=== PATIENT | female | born 1940 | race Caucasian/White ===

== ENCOUNTER 2020-09-12 07:09 | Day surgery (SDC) | payer OTHER, MEDICARE ==
[2020-09-06 16:54] LABS: Absolute Lymphocytes (CBC) 1.9 K/uL (0.7-4.9); Basophils % 1.2 % (0-1.3); Hematocrit 43.6 % (36.0-45.0); Lymphocytes % 21.1 % (15.3-44.8); MPV 8.2 fL (7.6-11.3); RBC Red Blood Cell Count 4.66 M/uL (3.86-4.86)
[2020-09-06 16:55] LABS: Urine Appearance CLOUDY; Urine Bilirubin NEGATIVE (NEG); Urine Blood 2+ (NEG); Urine Color YELLOW; Urine Glucose NEGATIVE (NEG); Urine Protein NEGATIVE (NEG); Urine Urobilinogen 0.2 mg/dL (0.2-1.0); Urine pH 6.5 (5.0-7.0)
[2020-09-06 17:01] LABS: Urine Microscopic Reflex ORDER UMIC
[2020-09-06 17:08] LABS: Potassium 3.8 mmol/L (3.5-5.1)
[2020-09-06 17:17] LABS: Urine Bacteria <20 /HPF (<20); Urine RBC <5 /HPF (NONE SEEN)
--- OUTSIDE RECORDS SUMMARY | 2020-09-12 07:11 | XMS REPORT | Clinical Summary ---
:1940 Author Organization [facility] Address [address] [place] [address] Care Team Providers Name Role Phone Zelda Butler MD Primary Care Provider [phone] Allergies Active Allergy Reactions Severity Noted Date Comments Other 03/04/2017 Joint pain with unknown cholesterol med. Denies other a llergies. Medications Medication Sig Dispensed Refills Start Date End Date Status telmisartan-hydrochlor Take 1 tablet by 0 Active othiazid (MICARDIS mouth daily. HCT) 80-12.5 mg per tablet lactulose 10 gram/15 Take 30 g by mouth 0 Active mL (15 mL) solution 2 (two) times a day. 3 Tbsp BID aspirin (ECOTRIN) 81 Take 81 mg by 0 Active MG enteric coated mouth daily. tablet pravastatin Take 20 mg by 0 Acti ve (PRAVACHOL) 20 MG mouth nightly. tablet coenzyme Q10 200 mg Take 200 mg by 0 Active capsule mouth nightly. FOLIC Take 1 tablet by 0 Act tommie ACID/MULTIVIT-MIN/LUTE mouth daily. IN (CENTRUM SILVER ORAL) cholecalciferol, Take 1,000 Units 0 Active vitamin D3, (VITAMIN by mouth daily. D3) 1,000 unit tablet OMEGA-3 FATTY ACIDS Take 1,200 mg by 0 Active (FISH OIL CONCENTRATE mouth daily. ORAL) ALPRAZolam (XANAX) Take 0.25 mg by 0 Active 0.25 MG tablet mouth nightly as needed for anxiety. 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 n; Service: Cardiovascular; Laterality: N/A; Medical History Medical History Date Comments Hyperlipidemia Hypertension Family History Medical History Relation Name Comments Heart disease Father Relation Name Status Comments Father Social History Tobacco Use Types Packs/Day Years Used Date Former Smoker Smokeless Tobacco: Never Used Comments: Quit 60 years ago Alcohol Use Drinks/Week oz/Week Comments Yes occasional Sex Assigned at Date Recorded Not on file Last Filed Vital Signs Not on file Plan of Treatment Not on file Results Not on fileafter 09/12/2019 Insurance Payer Benefit Plan / Subscriber ID Effective Dates Phone Addre ss Type Group MEDICARE MEDICARE PART A [id number] 2003-Present [place]NY [place] Medicare AND B AARP AARP SUPPLEMENT [id number] 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
--- OUTSIDE RECORDS SUMMARY | 2020-09-12 07:11 | XMS REPORT | Continuity of Care Document ---
:1940 Author Organization [facility] t Address [address] [place] [address] Care Team Providers Name Role Phone Luke CHANG, Angi Primary Care Physician [phone] Lucero Jj Attending Clinician Unknown, Attending Attending Clinician Unavailable Problems This patient has no known problems. Allergies, Adverse Reactions, Alerts Allergy Allergy Status Severity Reaction(s) Onset Inactive Treating Comm ents Source Name Type Date Date Clinician Other Propensi Active Joint [place] ty to 7-18 pain with Methodi adverse 00:00: unknown st reaction 00 cholester s ol med. Denies other allergies . Family History Family Member Diagnosis Comments Start Date Stop Date Source Natural father Heart disease Mendes Roman Catholic Social History Social Habit Start Date Stop Date Quantity Comments Source Sex Assigned At [facility] ethodist Tobacco use and 2017-03-18 2017-03-18 Never used [facility] ethodist exposure 00:00:00 00:00:00 Alcohol intake 2017-03-18 2017-03-18 Current drinker of Javier ryan Roman Catholic 00:00:00 00:00:00 alcohol (finding) Tobacco Comment 2017-03-04 2017-03-04 Quit 60 years ago [place] 00:00:00 00:00:00 Alcohol Comment 2017-03-04 2017-03-04 occasional Vaughn Krishna ethodist 00:00:00 00:00:00 Smoking Status Start Date Stop Date Source Former smoker 2017-03-18 00:00:00 2017-03-18 00:00:00 Vaughn Pimentel Medications Ordered Filled Start Stop Current Ordering Indication Dosage Frequency Signature Comments Components Source Medication Medication Date Date Medication? Clinician (SIG) Name Name telmisartan Yes 1{tbl} QD Take 1 Ho usryan -hydrochlor 7-18 tablet by Met jud othiazid 18:57: mouth st (MICARDIS 14 daily. HCT) 80-12.5 mg per tablet lactulose Yes 30g Q.5D Take 30 g Amanda ston 10 gram/15 7-18 by mouth 2 Met jud mL (15 mL) 18:57: (two) st solution 14 times a day. 3 Tbsp BID aspirin Yes 81mg QD Take 81 mg [place] (ECOTRIN) 7-18 by mouth Method i 81 MG 18:57: daily. st enteric 14 coated tablet pravastatin Yes 20mg QD Take 20 mg [place] (PRAVACHOL) 7-18 by mouth Meth catalino 20 MG 18:57: nightly. st tablet 14 coenzyme Yes 200mg QD Take 200 [place] Q10 200 mg 7-18 mg by Methodi capsule 18:57: mouth st 14 nightly. FOLIC Yes 1{tbl} QD Take 1 [place] ACID/MULTIV 7-18 tablet by Met jud IT-MIN/LUTE 18:57: mouth st IN (CENTRUM 14 daily. SILVER ORAL) cholecalcif Yes 1000U QD Take 1,000 [place]es cory, 7-18 Units by Methodi vitamin D3, 18:57: mouth st (VITAMIN 14 daily. D3) 1,000 unit tablet OMEGA-3 Yes 1200mg QD Take 1,200 rocael FATTY ACIDS 7-18 mg by Methodi (FISH OIL 18:57: mouth st CONCENTRATE 14 daily. ORAL) ALPRAZolam Yes .25mg QD Take 0.25 [place] (XANAX) 7-18 mg by Methodi 0.25 MG 18:57: mouth st tablet 14 nightly as needed for anxiety. Procedures This patient has no known procedures. Encounters Start End Encounter Admission Attending Care Care Encounter Source Date/Time Date/Time Type Type Clinicians Facility Department ID 2020-06-10 2020-06-10 Emergency Beth, [facility] [id number] 10:59:00 12:06:00 Lucero Harmon [id number] [place] [id number] [place] [id number] 2020-02-15 2020-02-15 [facility] Unknown, [facility] [id number] 09:27:00 23:59:00 Encounter Attending [place] [id number] [place] [id number] [place] [phone] [id number] 2020-02-15 2020-02-15 [facility] Unknown, [facility] [id number] 09:26:00 09:26:00 Encounter Attending Eden [id number] [place] [id number] [place] [phone] [id number] Results This patient has no known results.
[2020-09-12] MEDS ORDERED: propofoL 200 MG/20 ML VIAL IV ONE (07:33)
[2020-09-12] MEDS ORDERED: FENTANYL CITR 250 MCG/5 ML ONE (07:33)
[2020-09-12] MEDS ORDERED: dexAMETHasone 10 MG/ML VIAL ONE (07:33)
[2020-09-12] MEDS ORDERED: LIDOCAINE 1% MPF 5 ML VIAL ONE (07:33)
[2020-09-12] MEDS ORDERED: MIDAZOLAM HCL 2 MG/2 ML INJ ONE (07:33)
[2020-09-12] MEDS ORDERED: ROCURONIUM 50 MG/5 ML VIAL IV ONE (07:34)
[2020-09-12] MEDS ORDERED: KETAMINE HCL 500 MG/5 ML VIAL ONE (07:34)
[2020-09-12] MEDS ORDERED: ONDANSETRON 4 MG/2 ML VIAL ONE (07:34)
[2020-09-12] MEDS ORDERED: Ringers Lactate 1,000 ML IV ONE (07:42)
[2020-09-12] MEDS ORDERED: SCOPOLAMINE HYDROBROMIDE PATCH TD ONE (07:42)
[2020-09-12] MEDS: CEFAZOLIN/SWI 2gm 2 GM/20 ML SYR ONE ×3 (08:08→08:55)
[2020-09-12] MEDS ORDERED: NA CHLORIDE 0.9% 100 ML IV ONE (08:45)
[2020-09-12] MEDS ORDERED: CEFAZOLIN/SWI 1gm 1 GM/10 ML SYR ONE (08:45)
[2020-09-12] MEDS ORDERED: EPHEDRINE SULF 50 MG/ML VIAL ONE (09:20)
[2020-09-12] MEDS: VASOPRESSIN 20 UNIT/ML VIAL ONE ×2 (09:22→09:32)
[2020-09-12] MEDS: Ringers Lactate 1,000 ML IV ONE ×2 (09:46→10:00)
[2020-09-12] MEDS ORDERED: VECURONIUM 10 MG/VIAL IV ONE (09:48)
[2020-09-12] MEDS ORDERED: GLYCOPYRROLATE 0.2 MG/ML SYR ONE ×2 (12:12)
[2020-09-12] MEDS ORDERED: NEOSTIGMINE 1 MG/ML -5 ML ONE (12:13)
[2020-09-12] MEDS ORDERED: MORPHINE 2 MG/ML SYR IV PRN (12:17)
[2020-09-12] MEDS ORDERED: PROMETHAZINE INJ 25 MG/ML AMP IV PRN (12:18)
[2020-09-12] MEDS ORDERED: ONDANSETRON 4 MG/2 ML VIAL IV PRN (12:19)
[2020-09-12] MEDS ORDERED: PROMETHAZINE 25 MG TABLET PO PRN (12:19)
[2020-09-12 13:46] VITALS: O2SAT 94; BMI 25.1
[2020-09-13] MEDS: ACETAMINOPHEN 500 MG TAB PO PRN ×2 (00:25→12:30)
[2020-09-13 04:46] LABS: Absolute Lymphocytes (CBC) 1.7 K/uL (0.7-4.9); Basophils % 0.2 % (0-1.3); Hematocrit 34.2 % (36.0-45.0); Lymphocytes % 17.4 % (15.3-44.8); MPV 7.6 fL (7.6-11.3); RBC Red Blood Cell Count 3.66 M/uL (3.86-4.86)
[2020-09-13 04:54] LABS: Potassium 4.3 mmol/L (3.5-5.1)
--- NOTE | 2020-09-13 12:42 | EKG ---
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
[2020-09-13 13:26] VITALS: BP 118/72; TEMP 97.3
--- NOTE | 2020-09-18 14:17 | OP ---
Date of Procedure: 09/12/2020 Surgeon: Betsy Xiao MD Preoperative Diagnoses: Stage III posterior wall defect (rectocele), vaginal wall prolapse, posterio r enterocele, perineal body defect. Postoperative Diagnoses: Stage III posterior wall defect (rectocele), vaginal wall prolapse, posteri or enterocele, perineal body defect. Procedures Performed: Bilateral sacrospinous ligament fixation, colpopexy, biologic DermaPure graft augmentation, perineal body repair, posterior enterocele repair, and cystoscopy. Anesthesia: General endotracheal. Specimens: No specimens. Complications: None. Drains: Vera catheter and vaginal packing. Condition: Stable. Estimated Blood Loss: 100. Findings: The patient with stage III posterior wall defect with posterior enterocele was noted, which was repaired and perineal body was repaired as well. After DermaPure biologic graft was attached with Prolene sutures to both sacrospinous ligament and then the Prolene sutures to the vagi nal apex at vaginal vault. There was still a defect that was a not satisfactorily repaired at the ap ex, so a separate Prolene suture was used to tack this to the distal uterosacral on the right and pul l the vaginal wall on the right side to the right sacrospinous to give an extra lift to the apex. Th en posterior wall repair with 2-0 PDS and perineal body was repaired with 2-0 Vicryl. Indication: The patient is an 79-year-old female with significant bulge symptoms, evacuation problem s, and recurrent urinary tract infections with vaginal atrophy, so she was evaluated for pelvic floor physical therapy, alternatives of pessary were reviewed with the patient given the large genital hia tus as well as significant posterior defect, the possibility of the pessary could keep the prolapse d ecompressed was very small, so she also preferred to have a surgical repair as it was very difficult for void symptoms and defecatory symptoms, evacuation problems with just bowel regimen odin ng. She was on good bowel regimen with lactulose and Metamucil daily. Description Of Procedure: After informed consent was verified, she was taken back to the operating r oom. 2 g of Ancef were given. She was placed in supine fashion on the operating table. General ane sthesia was given. All the complications including bleeding, infection, injury to the bowel, bladder , ureters, and rectovaginal fistula were all reviewed with the patient and urinary problems could not be completely resolved with this as there was a significant anterior defect were counseled and the p atient consented appropriately. Lower abdomen, vulva, vagina, and perineum prepped and draped in a sterile fashion. Vera was placed to drain the bladder and the prolapse evaluated. ischial spine was palpated and easily p alpable. On the posterior midline, a jessica-shaped incision was made in the vaginal epithelium in the distal half. The vaginal epithelium was excised from the underlying connective tissue to expose the defect. Then perineal body was also dissected to expose the lateral margin, so this could be repaired and d ilute vasopressin was injected first and then incision was made. Then, superiorly, the dissection was performed to take down the enterocele from the proximal part of the vaginal and posterior wall. Then, once this was reduced and all the posterior wall was completel y exposed. It was very clear that the rectovaginal septum was condensed and scarred area at least 3 to 4 cm that was lying mostly in the distal half completely detached from the proximal half and then there was laxity of the perineal body in general replaced by scar tissue. There was also an external sphincter defect, but this was not to be addressed at this time. After taking and repairing the posterior enterocele with the help of 3-0 Monocryl suture in a pursest ring fashion x2, then I was able to visualize the apex of the vaginal wall and sacrospinous ligaments were dissected on both sides into the pararectal space, ischial spine palpated and sweeping medially from the ischial spine towards the coccyx. The sacrospinous ligament was cleaned up and the bowel s wept medially. The mid ligament was identified and Capio device was used to pass a Prolene suture th rough here 2 cm away from the ischial spine. A good bite was taken. This was held on a clamp. Shira lar bite on the opposite side was taken after dissecting the bowel off medially and retracting medial ly. Once the 2 bites were good, then 2 Prolene sutures were passed in the proximal part of the vaginal wa ll without entering the vaginal epithelium into the connective tissue as well of the scar of the hyst erectomy. Then a biologic graft augmentation was decided because it was very difficult to pull the s mall amount of 34 cm rectovaginal septum all the way to the apex and not cause excessive tension and this could also cause vaginal shortening and the impaired ability of the vaginal wall to be lifted ap propriately. The vaginal graft was fashioned such that it was 7.5 cm from [id number] from spine to spine and the anterior-posterior direction about 7 cm. Once the graft was shaped into the trapezoid shape trapezoid shape. Then, the sutures were placed around the sacrospinous onto the gr aft at the proximal end, in the center of the Prolene and the wall were fixed to the graft and all th trinity sutures were tied down the sacrospinous on each side. Once this was done and there wa s the lift, I still was not satisfied with as this was about -5 cm and appeared to have some bulge al so at the anterior apex, so the remnant of the right uterosacral was picked up with an Allis clamp. Another suture of Prolene was placed medial to the prior suture, carefully going just through the mid ligament avoiding to go over it to avoid injury to the nerves. This was stitched into the distal ut erosacral that was grasped and the suture was tied down. This gave an extra 0.5 cm depth to the side and the suspension appeared to be not under excessive tension. Then, the graft was sutured with the PDS sutures to the side. The vaginal epithelium and the connect tommie tissue in the posterior vaginal wall were then reattached to the sides and the graft with a 2-0 P DS. Then, the distal perineal body was repaired with 2-0 Vicryl interrupted sutures and the PDS sutu re was used to reattach the distal biologic graft to the vaginal connective tissue and the perineal b yasir with 2-0 PDS in a continuous running fashion. Once this was tied off, the graft was attached in all 4 sides. The perineal body was reconstructed. Vaginal epithelium was trimmed adequately to be a ble to close and this was closed with the help of 2-0 Vicryl in a continuous running locked fashion. Then, the suture ended at the perineal body and lateral sutures of the deep transverse perineum and the scar tissue that was replaced, was done with 2-0 Vicryl sutures from side to side x2, then epithe lium was closed with the help of 3-0 Vicryl in subcutaneous fashion and tied inside the vestibule. R ectal exam was performed. No evidence of any sutures in the distal rectum or proximal part. Gloves were changed and Vera was removed. Cystoscopy was performed. Both ureteric jets were seen f rom both ureteric orifices, strong jet. No evidence of any trauma to the bladder. The bladder was d rained. Vera was replaced. Instrument, needle, and sponge counts were correct and about 100 cc of EBL. The patient tolerated the procedure well. 7, +1, +2. HOLDEN/BIBI Voice ID: [id number] Report ID: [id number]
== END 2020-09-13 13:15 | disposition home or self-care (01) ==
LOC: OR 07:09 → 2ND-WC 12:13 → OR 09-13 13:15
PROVIDERS: ATTEND Obstetrics & Gynecology
PROC: 0WQNXZZ Repair Female Perineum, External Approach (ICD-10-PCS; 2020-09-12)
PROC: 0UQF7ZZ Repair Cul-de-sac, Via Natural or Artificial Opening (ICD-10-PCS; 2020-09-12)
PROC: 0JUC0JZ Supplement of Pelvic Region Subcutaneous Tissue and Fascia with Synthetic Substitute, Open Approach (ICD-10-PCS; principal; 2020-09-12 08:30)
DX: N81.6 Rectocele (principal); N76.0 Acute vaginitis; N95.2 Postmenopausal atrophic vaginitis; I10 Essential (primary) hypertension; Z87.440 Personal history of urinary (tract) infections; Z20.822 Contact with and (suspected) exposure to COVID-19
CPT/HCPCS: 57268; 93005; 85025 ×2; 80048 ×2; 36415 ×2; 86900; 86850; 85610; 86901; 85730; 57250; 57267; U0002; J2704; J2550; J3010; J1100; J2270; J2710; J0690 ×2; J7120 ×2; J2405 ×2; 81003; 81015; J2250

== ENCOUNTER 2020-09-15 07:55 | Emergency (ER) | payer OTHER, MEDICARE ==
--- OUTSIDE RECORDS SUMMARY | 2020-09-15 08:01 | XMS REPORT | Continuity of Care Document ---
:1940 Author Organization [facility] t Address [address] [place] [address] Care Team Providers Name Role Phone Luke CHANG, [facility] Primary Care Physician [phone] Lucero Jj Attending Clinician Unknown, Attending Attending Clinician Unavailable Problems This patient has no known problems. Allergies, Adverse Reactions, Alerts Allergy Allergy Status Severity Reaction(s) Onset Inactive Treating Comm ents Source Name Type Date Date Clinician Other Propensi Active Joint [place] ty to 7-18 pain with Methodi adverse 00:00: unknown st reaction 00 cholester s ol med. Denies other allergies . Family History Family Member Diagnosis Comments Start Date Stop Date Source Natural father Heart disease [place] Yarsani Social History Social Habit Start Date Stop Date Quantity Comments Source Sex Assigned At [facility] ethodist Tobacco use and 2017-03-18 2017-03-18 Never used [facility] ethodist exposure 00:00:00 00:00:00 Alcohol intake 2017-03-18 2017-03-18 Current drinker of Javier cote Yarsani 00:00:00 00:00:00 alcohol (finding) Tobacco Comment 2017-03-04 2017-03-04 Quit 60 years ago Javier rocael Pimentel 00:00:00 00:00:00 Alcohol Comment 2017-03-04 2017-03-04 occasional Vaughn Krishna ethodist 00:00:00 00:00:00 Smoking Status Start Date Stop Date Source Former smoker 2017-03-18 00:00:00 2017-03-18 00:00:00 Vaughn Pimentel Medications Ordered Filled Start Stop Current Ordering Indication Dosage Frequency Signature Comments Components Source Medication Medication Date Date Medication? Clinician (SIG) Name Name telmisartan Yes 1{tbl} QD Take 1 [place] -hydrochlor 7-18 tablet by Met jud othiazid [...] 1 [place] ACID/MULTIV 7-18 tablet by Met salliei IT-MIN/LUTE 18:57: mouth st IN (CENTRUM 14 daily. SILVER ORAL) cholecalcif Yes 1000U QD Take 1,000 [place]es cory, 7-18 Units by Methodi vitamin D3, 18:57: mouth st (VITAMIN 14 daily. D3) 1,000 unit tablet OMEGA-3 Yes 1200mg QD Take 1,200 Ho rocael FATTY ACIDS 7-18 mg by Methodi [...] Facility Department ID 2020-06-10 2020-06-10 Emergency Beth, [facility] [id number] 10:59:00 12:06:00 Lucero Harmon [id number] [place] [id number] [place] [id number] 2020-02-15 2020-02-15 [facility] Unknown, [facility] [id number] 09:27:00 23:59:00 Encounter Attending [place] [id number] [place] [id number] [place] [id number] [id number] 2020-02-15 2020-02-15 [facility] Unknown, [facility] [id number] 09:26:00 09:26:00 Encounter Attending Eden [id number] [place] [id number] [place] [phone] 800 Results This patient has no known results.
--- OUTSIDE RECORDS SUMMARY | 2020-09-15 08:01 | XMS REPORT | Clinical Summary ---
:1940 Author Organization [facility] Address [address] [place] [address] Care Team Providers Name Role Phone Zelda Butler MD Primary Care Provider [phone] Allergies Active Allergy Reactions Severity Noted Date [...] cors; Surg janie: Brenden Card MD; Location: [facility] [employer] Invasive Locatio n; Service: Cardiovascular; Laterality: N/A; [...] Not on file Results Not on fileafter 09/15/2019 Insurance Payer Benefit Plan / Subscriber ID Effective Dates Phone Addre ss Type Group MEDICARE MEDICARE PART A [id number] 2003-Present MANNY [place] Medicare AND B AARP AARP SUPPLEMENT [id number] 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
[2020-09-15 09:20] LABS: Protime INR 0.97
[2020-09-15 09:29] LABS: Absolute Lymphocytes (CBC) 1.1 K/uL (0.7-4.9); Basophils % 0.5 % (0-1.3); Hematocrit 43.8 % (36.0-45.0); Lymphocytes % 13.4 % (15.3-44.8); MPV 8.7 fL (7.6-11.3); RBC Red Blood Cell Count 4.77 M/uL (3.86-4.86)
[2020-09-15 09:32] LABS: ALT/SGPT 19 U/L (12-78); AST/SGOT 21 U/L (15-37); Albumin 3.5 g/dL (3.4-5.0); Alkaline Phosphatase 87 U/L (45-117); BUN Blood Urea Nitrogen 8 mg/dL (7-18); Bicarbonate 27 mmol/L (21-32); Bilirubin Direct 0.1 mg/dL (0-0.2); Bilirubin Total 0.5 mg/dL (0.2-1.0); Glucose Level 114 mg/dL (74-106); Magnesium 1.5 mg/dL (1.8-2.4); NT PRO-BNP 900 pg/mL (<450); Potassium 3.5 mmol/L (3.5-5.1); Protein, Total 7.7 g/dL (6.4-8.2); Sodium Level 129 mmol/L (136-145); Troponin (Emerg Dept Use Only) 0.03 ng/mL (0.0-0.045)
[2020-09-15 10:13] LABS: Urine Blood 2+ (NEG); Urine Glucose NEGATIVE (NEG); Urine Protein NEGATIVE (NEG)
[2020-09-15] MEDS ORDERED: NA CHLORIDE 0.9% 500 ML ONE (10:55)
--- NOTE | 2020-09-15 11:24 | RAD REPORT ---
EXAM DESCRIPTION: CT - Abdomen Pelvis W Contrast - 09/15/2020 10:07 am CLINICAL HISTORY: Abdominal pain COMPARISON: none. TECHNIQUE: Computed axial tomography of the abdomen pelvis was obtained. 100 cc Isovue-300 was admin istered intravenously. Oral contrast was not requested which limits evaluation of bowel. All CT scans are performed using dose optimization technique as appropriate and may include automated exposure control or mA/KV adjustment according to patient size. FINDINGS: Small hepatic cyst. Splenic granulomata The pancreas, adrenals and kidneys unremarkable. The rectum is mildly distended with stool. The ather osclerotic disease. There is no evidence of diverticulitis. A hysterectomy has been performed IMPRESSION: The rectum is mildly distended with stool
--- NOTE | 2020-09-15 12:10 | RAD REPORT ---
EXAM DESCRIPTION: Alejandra Single View09/15/2020 9:31 am CLINICAL HISTORY: Hypertension COMPARISON: September 15, 2020 FINDINGS: Interstitial pattern within the lungs appears mildly prominent. The heart is normal size IMPRESSION: Interstitial pattern within the lungs appears mildly prominent. This probably is chronic . However,if the patient has clinical symptoms to suggest an acute pulmonary process then PA and lat eral chest series would be recommended
--- NOTE | 2020-09-15 12:25 | ER ---
Nurse's Notes [facility] Name: Erendira Morgan Age: 79 yrs Sex: Female : 1940 Arrival Date: 09/15/2020 Time: 07:57 Bed 3 Private MD: Diagnosis: Rectal Pain, Constipation;Hypertensive heart disease Presentation: 09/15 08:07 Chief complaint: Patient states: Sent by Dr. Xiao for elevated BP. Pt [facility] 197[facility]101. Pt recently had a bladder lift surgery and had her [place] removed this morning. C/o intermittent dizziness and rectal pressure. Coronavirus screen: Client denies travel out of the [place] in the last 14 days. Ebola Screen: Patient denies exposure to infectious person. Patient denies travel to an Ebola-affected area in the 21 days before illness onset. Initial Sepsis Screen: Does the patient meet any 2 criteria? No. Patient's initial sepsis screen is negative. Does the patient have a suspected source of infection? No. Patient's initial sepsis screen is negative. Risk Assessment: Do you want to hurt yourself or someone else? Patient reports no desire to harm self or others. Onset of symptoms is unknown. 08:07 Method Of Arrival: [facility] 08:07 Acuity: ELIU 3 dm5 Triage Assessment: 08:10 General: Appears uncomfortable, Behavior is calm, cooperative. Pain: Complains of pain dm5 in rectum Pain currently is 5 out of 10 on a pain scale. Quality of pain is described as pressure, Is continuous. Neuro: Level of Consciousness is awake, alert, obeys commands. Respiratory: Airway is patent Respiratory effort is even, unlabored, Respiratory pattern is regular, symmetrical. Derm: Skin is intact, is healthy with good turgor, Skin is pink, warm \T\ dry. normal. Historical: - Allergies: 08:10 Codeine; dm5 - Immunization history:: Adult Immunizations up to date. - Social history:: Smoking status: Patient denies any tobacco usage or history of. Screenin:42 Abuse screen: Denies threats or abuse. Denies injuries from another. Nutritional bp screening: No deficits noted. Tuberculosis screening: No symptoms or risk factors identified. Fall Risk None identified. Assessment: 08:10 General: SEE TRIAGE NOTE. bp 09:30 Reassessment: Patient appears in no apparent distress at this time. No changes from bp previously documented assessment. Patient and/or family updated on plan of care and expected duration. Pain level reassessed. Patient is alert, oriented x 3, equal unlabored respirations, skin warm/dry/pink. 10:18 Reassessment: PT AMBULATED TO RESTROOM AND RETURNED WITHOUT DIFFICULTY, STEADY GAIT bp NOTED. 12:02 Reassessment: Patient appears in no apparent distress at this time. Patient and/or bp family updated on plan of care and expected duration. Pain level reassessed. Patient is alert, oriented x 3, equal unlabored respirations, skin warm/dry/pink. ALL CURRENT ORDERS COMPLETED. DISPO PENDING. 13:07 Reassessment: PT D/C HOME AMBULATORY WITH FAMILY, DX WITH CONSTIPATION. bp Vital Signs: 08:07 BP 183 / 92; Pulse 83; Resp 16; Temp 98.1(TE); Pulse Ox 97% on R/A; Weight 63.5 kg; dm5 Height 5 ft. 3 in. (160.02 cm); Pain 5/10; 08:11 BP 159 / 94; Pulse 83; dm5 09:30 BP 143 / 73; Pulse 72; Resp 16; Pulse Ox 100% on R/A; bp 11:58 BP 155 / 77; Pulse 96; Resp 17; Pulse Ox 96% ; bp 13:07 BP 127 / 64; Pulse 93; Resp 16; Temp 98.1; Pulse Ox 98% ; bp 08:07 Body Mass Index 24.80 (63.50 kg, 160.02 cm) dm5 ED Course: 07:57 Patient arrived in ED. ds1 08:09 Triage completed. dm5 08:10 Arm band placed on right wrist. dm5 08:38 Tom Wolfe MD is Attending Physician. kdr 08:51 Patricio Carter, CAMPOS is Primary Nurse. bp 09:04 Initial lab(s) drawn, by me, sent to lab. Inserted saline lock: 20 gauge in right dh3 antecubital area, using aseptic technique. Blood collected. 09:15 EKG done, by ED staff, reviewed by Tom Wolfe MD. dh3 09:21 Bladder scan completed. 147 ml. jl7 09:31 XRAY Chest (1 view) In Process Unspecified. EDMS 09:42 Patient has correct armband on for positive identification. Bed in low position. Call bp light in reach. Side rails up X2. 10:06 CT Abd/Pelvis - IV Contrast Only In Process Unspecified. EDMS 13:08 No provider procedures requiring assistance completed. IV discontinued, intact, bp bleeding controlled, No redness/swelling at site. Pressure dressing applied. Administered Medications: 09:20 Drug: Zofran (Ondansetron) 4 mg Route: IVP; Site: right antecubital; jl7 10:00 Follow up: Response: No adverse reaction; Nausea is decreased jl7 10:44 Drug: NS 0.9% 500 ml Route: IV; Rate: bolus; Site: right antecubital; jl7 11:20 Follow up: Response: No adverse reaction; IV Status: Completed infusion; IV Intake: jl7 500ml 12:35 Drug: Ibuprofen 600 mg Route: PO; bp 12:53 Follow up: Response: No adverse reaction bp Intake: 11:20 IV: 500ml; Total: 500ml. jl7 Outcome: 12:25 Discharge ordered by . kdr 13:08 Discharged to home ambulatory, with family. bp 13:08 Condition: stable 13:08 Discharge instructions given to patient, family, Instructed on discharge instructions, follow up and referral plans. medication usage, Demonstrated understanding of instructions, follow-up care, medications, Prescriptions given X 1. 13:09 Patient left the ED. bp Signatures: Dispatcher [employer] EDME Carmen Blackwell RN RN dm5 Tom Wolfe MD MD kdr Sanford, Demi ds1 Michael Diamond RN RN jl7 Annette Tan 3 Patricio Carter RN RN bp
--- NOTE | 2020-09-15 12:26 | EDPHYS ---
Physician Documentation [facility] Name: Erendira Morgan Age: 79 yrs Sex: Female : 1940 Arrival Date: 09/15/2020 Time: 07:57 Bed 3 Private MD: ED Physician Tom Wolfe HPI: 09/15 09:08 This 79 yrs old Female presents to ER via Ambulatory with complaints of Blood kdr Pressure Issue. 09:08 The patient had a bladder lift earlier in the week by Dr. Arroyo and since yesterday, kdr has had intermittent elevated BP, has felt nauseated and generally poor. She also c/o pin to her buttock area that is increased with sitting. This is a new discomfort that has developed over the last few days. Onset: The symptoms/episode began/occurred this morning. Severity of symptoms: At their worst the symptoms were mild moderate just prior to arrival, in the emergency department the symptoms are unchanged. The patient has not experienced similar symptoms in the past. The patient has been recently seen by a physician: Dr. Arroyo. Historical: - Allergies: 08:10 Codeine; dm5 - Immunization history:: Adult Immunizations up to date. - Social history:: Smoking status: Patient denies any tobacco usage or history of. ROS: 09:08 Constitutional: Negative for fever, chills, and weight loss, Eyes: Negative for injury, kdr pain, redness, and discharge, ENT: Negative for injury, pain, and discharge, Neck: Negative for injury, pain, and swelling, Cardiovascular: Negative for chest pain, palpitations, and edema, Respiratory: Negative for shortness of breath, cough, wheezing, and pleuritic chest pain, Back: Negative for injury and pain, MS/Extremity: Negative for injury and deformity, Skin: Negative for injury, rash, and discoloration, Neuro: Negative for headache, weakness, numbness, tingling, and seizure activity. Psych: Negative for depression, anxiety, suicide ideation, homicidal ideation, and hallucinations, Allergy/Immunology: Negative for hives, rash, and allergies, Endocrine: Negative for neck swelling, polydipsia, polyuria, polyphagia, and marked weight changes, Hematologic/Lymphatic: Negative for swollen nodes, abnormal bleeding, and unusual bruising. 09:08 Abdomen/GI: Positive for abdominal pain, nausea, constipation, Negative for diarrhea, abdominal cramps, abdominal distension, anorexia, dysphagia, hematemesis, black/tarry stool, rectal pain, rectal bleeding. Exam: 09:08 Constitutional: This is a well developed, well nourished patient who is awake, alert, kdr and in no acute distress. Head/Face: Normocephalic, atraumatic. Eyes: Pupils equal round and reactive to light, extra-ocular motions intact. Lids and lashes normal. Conjunctiva and sclera are non-icteric and not injected. Cornea within normal limits. Periorbital areas with no swelling, redness, or edema. Neck: Trachea midline, no thyromegaly or masses palpated, and no cervical lymphadenopathy. Supple, full range of motion without nuchal rigidity, or vertebral point tenderness. No Meningismus. Chest/axilla: Normal chest wall appearance and motion. Nontender with no deformity. No lesions are appreciated. Cardiovascular: Regular rate and rhythm with a normal S1 and S2. No gallops, murmurs, or rubs. Normal PMI, no JVD. No pulse deficits. Respiratory: Lungs have equal breath sounds bilaterally, clear to auscultation and percussion. No rales, rhonchi or wheezes noted. No increased work of breathing, no retractions or nasal flaring. Back: No spinal tenderness. No costovertebral tenderness. Full range of motion. Skin: Warm, dry with normal turgor. Normal color with no rashes, no lesions, and no evidence of cellulitis. MS/ Extremity: Pulses equal, no cyanosis. Neurovascular intact. Full, normal range of motion. Neuro: Awake and alert, GCS 15, oriented to person, place, time, and situation. Cranial nerves II-XII grossly intact. Motor strength 5/5 in all extremities. Sensory grossly intact. Cerebellar exam normal. Normal gait. Psych: Awake, alert, with orientation to person, place and time. Behavior, mood, and affect are within normal limits. 09:08 Abdomen/GI: Inspection: abdomen appears normal, Bowel sounds: normal, active, all quadrants, Palpation: soft, mild abdominal tenderness, in the suprapubic area. Vital Signs: 08:07 BP 183 / 92; Pulse 83; Resp 16; Temp 98.1(TE); Pulse Ox 97% on R/A; Weight 63.5 kg; dm5 Height 5 ft. 3 in. (160.02 cm); Pain 5/10; 08:11 BP 159 / 94; Pulse 83; dm5 09:30 BP 143 / 73; Pulse 72; Resp 16; Pulse Ox 100% on R/A; bp 11:58 BP 155 / 77; Pulse 96; Resp 17; Pulse Ox 96% ; bp 13:07 BP 127 / 64; Pulse 93; Resp 16; Temp 98.1; Pulse Ox 98% ; bp 08:07 Body Mass Index 24.80 (63.50 kg, 160.02 cm) dm5 MDM: 09:08 Data reviewed: vital signs, nurses notes, lab test result(s), radiologic studies. kdr 12:25 Patient medically screened. kdr 09/15 08:46 Order name: Basic Metabolic Panel; Complete Time: 10: kdr 09/15 08:46 Order name: CBC with Diff; Complete Time: 10: kdr 09/15 08:46 Order name: LFT's; Complete Time: : kdr 09/15 08:46 Order name: Magnesium; Complete Time: : kdr 09/15 08:46 Order name: NT PRO-BNP; Complete Time: : kdr 09/15 08:46 Order name: PT-INR; Complete Time: : kdr 09/15 08:46 Order name: Troponin (emerg Dept Use Only); Complete Time: : kdr 09/15 08:46 Order name: XRAY Chest (1 view) kdr 09/15 08:46 Order name: EKG; Complete Time: 08:47 kdr 09/15 08:54 Order name: CT Abd/Pelvis - IV Contrast Only; Complete Time: 11:59 kdr 09/15 10:02 Order name: Urine Dipstick--Ancillary (enter results); Complete Time: 10:26 eb 09/15 08:46 Order name: Cardiac monitoring; Complete Time: 09: kdr 09/15 08:46 Order name: EKG - Nurse/Tech; Complete Time: 09: kdr 09/15 08:46 Order name: IV Saline Lock; Complete Time: 09:07 kdr 09/15 08:46 Order name: Labs collected and sent; Complete Time: 09: kdr 09/15 08:46 Order name: O2 Per Protocol; Complete Time: 09:19 kdr 09/15 08:46 Order name: O2 Sat Monitoring; Complete Time: : kdr 09/15 08:53 Order name: Bladder Scanner; Complete Time: [facility] 09/15 09:55 Order name: Urine Dipstick-Ancillary (obtain specimen); Complete Time: :55 bp Administered Medications: 09:20 Drug: Zofran (Ondansetron) 4 mg Route: IVP; Site: right antecubital; jl7 10:00 Follow up: Response: No adverse reaction; Nausea is decreased jl7 10:44 Drug: NS 0.9% 500 ml Route: IV; Rate: bolus; Site: right antecubital; jl7 11:20 Follow up: Response: No adverse reaction; IV Status: Completed infusion; IV Intake: jl7 500ml 12:35 Drug: Ibuprofen 600 mg Route: PO; bp 12:53 Follow up: Response: No adverse reaction bp Disposition: 09/15/20 12:25 Discharged to Home. Impression: Rectal Pain, Constipation, Hypertensive heart disease. - Condition is Stable. - Discharge Instructions: Constipation, Adult, [id number], Hypertension, [id number]. - Prescriptions for Ibuprofen 600 mg Oral Tablet - take 1 tablet by ORAL route every 6 hours As needed take with food; 16 tablet. - Medication Reconciliation Form, Thank You Letter form. - Follow up: Private Physician; When: 2 - 3 days; Reason: If symptoms return, Further diagnostic work-up, Recheck today's complaints, Continuance of care, Re-evaluation by your physician. - Problem is new. - Symptoms have improved. Signatures: Dispatcher [facility] HealthcareCarmen Hill, RN RN dm5 Tom Wolfe MD MD kdr Leal, Jahala, RN RN jl7 Patricio Carter RN RN bp Corrections: (The following items were deleted from the chart) 13:09 12:25 09/15/2020 12:25 Discharged to Home. Impression: Rectal Pain, Constipation; bp Hypertensive heart disease. Condition is Stable. Forms are Medication Reconciliation Form, Thank You Letter, Antibiotic Education, Prescription Opioid Use. Follow up: Private Physician; When: 2 - 3 days; Reason: If symptoms return, Further diagnostic work-up, Recheck today's complaints, Continuance of care, Re-evaluation by your physician. Problem is new. Symptoms have improved. kdr
[2020-09-15] MEDS ORDERED: IBUPROFEN 200 MG TAB PO ONE (13:02)
[2020-09-15 13:13] VITALS: TEMP 98.1
[2020-09-15 13:17] VITALS: BP 127/64; O2SAT 98
--- NOTE | 2020-09-16 14:25 | EKG ---
Test Date: 2020-09-15 Test Time: 09:15:28 Almond Paste Mixer: AMRAL MEASUREMENT RESULTS: Intervals: Rate: 74 PA: 136 QRSD: 86 QT: 376 QTc: 417 [place]: P: 72 PA: 136 QRS: 49 T: 72 INTERPRETIVE STATEMENTS: Normal sinus rhythm Normal ECG Compared to ECG 09/12/2020 08:05:31 No significant changes Electronically Signed On 09-16-20 14:23:06 [employer] WORK[employer] by Kwame Au
== END 2020-09-15 13:09 | disposition home or self-care (01) ==
LOC: ER 07:55
DX: I11.9 Hypertensive heart disease without heart failure (principal); K59.00 Constipation, unspecified; K62.89 Other specified diseases of anus and rectum; Z98.890 Other specified postprocedural states; Z88.6 Allergy status to analgesic agent
CPT/HCPCS: 96361; 93005; 85025; 80048; 36415; 83735; 85610; 80076; 81003; 84484; 83880; 74177; 71045; 96374; 99284; Q9967; J7040

== ENCOUNTER 2023-04-11 09:51 | Inpatient (IN) | payer OTHER, MEDICARE ==
--- OUTSIDE RECORDS SUMMARY | 2023-04-11 10:02 | XMS REPORT | Continuity of Care Document ---
:1940 Author Organization [facility] t Address [address] [facility]. [address] [place] [address] Care Team Providers Name Role Phone To CHANG, [facility] Primary Care Physician [phone] DAMEON ROSALES Attending Clinician Unavailable [email or web address] Attending Clinician Unavailable Dameon Rosales MD Attending Clinician Doctor Unassigned, [place] Attending Clinician Unavailable Bhumi Raza RN Attending Clinician Unavailable SHADY SMITH Attending Clinician Unavailable Stevie Sauceda MD Attending Clinician Shady Smith DO Attending Clinician CHRISTOS KRISHNA Attending Clinician Unavailable Christos Krishna MD Attending Clinician RADIOLOGY Attending Clinician Unavailable Radiology Attending Clinician Unavailable UNKNOWN, ATTENDING Attending Clinician Unavailable Unknown, Attending Attending Clinician Unavailable Vaccine, [facility] Attending Clinician Unavailable Chris PT, Jolie Cristobal Attending Clinician Unavailable Evangelina Saravia PTA Attending Clinician Unavailable April Patel PT Attending Clinician Unavailable Karthik Singh DO Attending Clinician KARTHIK SINGH Attending Clinician Unavailable 2, [facility] Attending Clinician Unavailable DESTINEY COFFMAN Attending Clinician Unavailable DESTINEY COFFMAN Attending Clinician Unavailable Pob, [facility] Lab Main Attending Clinician Unavailable NANCY FREEDMAN Attending Clinician Unavailable Nancy Freedman MD Attending Clinician CARIDAD CAMPBELL Attending Clinician Unavailable Caridad Campbell MD Attending Clinician APRIL ALVARADO Attending Clinician Unavailable Lucero Jj Attending Clinician April Alvarado MD Attending Clinician Adrien Cramer OT Attending Clinician Unavailable Jonathon CHANG, [facility] Attending Clinician BURAK [facility] Attending Clinician Unavailable Kerry Frost Attending Clinician KERRY GEE Attending Clinician Unavailable Nurse, [facility] Pob Immunization Attending Clinician Unavailable SANDRA SPENCER Attending Clinician Unavailable SARAH ARIZA Attending Clinician Unavailable [email or web address] Admitting Clinician Unavailable SHADY SMITH Admitting Clinician Unavailable Shady Smith DO Admitting Clinician SARAH ARIZA Admitting Clinician Unavailable NANCY FREEDMAN Admitting Clinician Unavailable Nancy Freedman MD Admitting Clinician DAMEON ROSALES Admitting Clinician Unavailable CARIDAD CAMPBELL Admitting Clinician Unavailable APRIL ALVARADO Admitting Clinician Unavailable April Alvarado MD Admitting Clinician Payers Payer Name Policy Type Policy Number Effective Date Expiration Date S ource MEDICARE PART A \\T\\ [id number] 2003 B 00:00:00 [facility] [id number] 2003 MEDICARE SUPPLEMENT 00:00:00 [place] B-[place]: [id number] 2003 [employer] SOL[employer] 00:00:00 [facility] [id number] 2022 OPTIONS (MEDICARE 00:00:00 SUPPLEMENT) Problems Condition Condition Condition Status Onset Resolution Last Treating Co mments Source Name Details Category Date Date Treatment Clinician Date Pulmonary Pulmonary Disease Active Uni vers hypertensi hypertensi 3-19 it y of on on 00:00: [place] 00 Medical Branch Pneumonia Pneumonia Disease Active Uni vers due to due to 3-17 [place] infectious [place] organism organism 00 Medica l Branch Acute Acute Disease Active Univers respirator respirator 3-16 it y of y failure y failure 00:[place] with 00 Medical hypoxia hypoxia Branch Paroxysmal Paroxysmal Disease Active 2020-08 U nivers atrial atrial 1-25 ity of fibrillati fibrillati 00:[place] on with on with 00 Medical RVR RVR Branch Troponin I Troponin I Disease Active 2020-08 U nivers above above 1-25 ity of reference reference 00:[place] range range 00 Medical Branch Hypertensi Hypertensi Disease Active 2020-08 U nivers ve urgency ve urgency 1-24 it y of 00:00: [place] [facility] Pedal Pedal Disease Active 2020-08 Univers edema edema 1-16 ity of 00:00: [place] [facility] Elevated Elevated Disease Active 2020-08 Unive rs brain brain 1-16 ity of natriureti natriureti 00:[place] c peptide c peptide 00 Medi dahlia (BNP) (BNP) Branch level level 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 00:00: [place] with with 00 Medical preserved preserved Bran ch ejection ejection fraction fraction Stiffness Stiffness Disease Active Uni vers of left of left 9 ity of wrist wrist 00:00: [place] joint joint 00 Medical Branch Left wrist Left wrist Disease Active U nivers pain pain 9-07 ity of 00:00: [place] 00 Medical Branch Stiffness Stiffness Disease Active Uni vers of finger of finger 9-07 ity of joint of joint of 00:00: [place] left hand left hand 00 Medi dahlia Branch Decreased Decreased Disease Active Uni vers activities activities 9-07 it y of of daily of daily 00:00: [place] living living 00 Medical (ADL) (ADL) Branch Coronary Coronary Disease Active Unive rs artery artery 7- ity of disease disease 00:00: [place] involving involving 00 Medi [place]ahl[place] coronary coronary artery of artery of [place] heart heart without without angina angina pectoris pectoris Essential Essential Disease Active Uni vers hypertensi hypertensi 7-21 it y of on on 00:00: [place] [facility] Other Other Disease Active Univers hyperlipid hyperlipid 03-07 it y of emia emia 00:00: [place] [facility] Coronary Coronary Disease Active Unive rs artery artery 7 ity of disease disease 00:00: [place] involving involving 00 Medi dahlia [place] Branch coronary coronary artery of artery of [place] heart heart without without angina angina pectoris pectoris Hypokalemi Hypokalemi Disease Active U nivers a a 03-07 ity of 00:00: [place] 00 Medical Branch Hyponatrem Hyponatrem Disease Active U nivers ia ia 03-07 ity of 00:00: [place] 00 Medical Branch Syncope, Syncope, Disease Active Unive rs unspecifie unspecifie 03-06 it y of d syncope d syncope 00:00: [place] type type 00 Medical Branch Allergies, Adverse Reactions, Alerts Allergy Allergy Status Severity Reaction(s) Onset Inactive Treating Comm ents Source Name Type Date Date Clinician CODEINE DRUG Active N/V Univers SULFATE INGREDI 3-07 ity of 00:00: [place] 00 Medical Branch Codeine Drug Active Nausea Univers Sulfate Allergy and/or 3-07 ity of Vomiting 00:00: 00 Medical Branch Codeine Propensi Active 2021-08 Phosphat ty to 0-13 e adverse 00:00: reaction 00 to drug CODEINE DRUG Active Unknown-Cmnt Uni vers INGREDI 7-20 ity of 00:00: [place] 00 Medical Branch Codeine Propensi Active Unknown - Univ ers ty to See comments 7-20 ity of adverse 00:00: [place] reaction 00 Medical s Branch HYDROCOD DRUG Active N/V 2019-08 Univers ONE INGREDI 0-24 ity of 00:00: [place] 00 Medical Branch Hydrocod Propensi Active Nausea 2019-08 Univer s one ty to and/or 0-24 ity of adverse Vomiting 00:00: [place] reaction 00 Medical s Branch Codeine Propensi Active ty to 1-06 adverse 00:00: reaction 00 to drug Other Propensi Active Joint Methodi ty to 7-[address] adverse 00:00: unknown [facility]osp[facility] reaction 00 cholester l s ol med. Denies other allergies . Family History Family Member Diagnosis Comments Start Date Stop Date Source Natural father Heart disease Methodi [facility] Social History Social Habit Start Date Stop Date Quantity Comments Source History of tobacco Current smoker [facility] use Hospital History SDOH Social Unive rsity of Connections Get [place] [facility] ical Together Branch History SDOH Social Unive rsity of Connections [facility] Medical Branch History SDOH Social Unive rsity of Connections [place] [facility] Membership Branch History SDOH Social Unive rsity of Connections [place] [facility] Meetings Branch Gender identity [facility] Sexual orientation [facility] Hospital Exposure to 2022-11-11 2022-11-21 Not sure University of SARS-CoV-2 (event) 00:00:00 09:39:00 [place] [facility] History SDOH 2022-11-05 2022-11-05 1 University o f Alcohol Frequency 00:00:00 00:00:00 [place] M edical Branch History SDOH 2022-11-05 2022-11-05 0 University o f Alcohol Std Drinks 00:00:00 00:00:00 [place] [facility] History SDOH 2022-11-05 2022-11-05 1 University o f Alcohol Binge 00:00:00 00:00:00 [place] Medic al Branch History SDOH Social 2022-11-05 2022-11-05 5 Unive rsity of Connections Phone 00:00:00 00:00:00 [place] M edical Branch History SDOH Social 2022-11-05 2022-11-05 3 Unive rsity of Connections Living 00:00:00 00:00:00 [place] [facility] History SDOH 2022-11-05 2022-11-05 3 University o f Physical Activity 00:00:00 00:00:00 [place] M edical DPW Branch History SDOH 2022-11-05 2022-11-05 2 University o f Physical Activity 00:00:00 00:00:00 [place] M edical MPS Branch History SDOH 2022-11-05 2022-11-05 5 University o f Financial 00:00:00 00:00:00 [place] [facility] History SDOH Food 2022-11-05 2022-11-05 1 Univers ity of Worry 00:00:00 00:00:00 [place] [facility] History SDOH Food 2022-11-05 2022-11-05 1 Univers ity of Scarcity 00:00:00 00:00:00 [place] [facility] History SDOH 2022-11-05 2022-11-05 2 University o f Transport Med 00:00:00 00:00:00 [place] Medic al Branch History SDOH 2022-11-05 2022-11-05 2 [place] o f Transport Non-Med 00:00:00 00:00:00 [facility] edical Branch Tobacco use and 2022-10-31 2022-10-31 Smokeless tobacco Un iversity of exposure 00:00:00 00:00:00 non-user [facility] Alcohol intake 2017-03-18 2017-03-18 Current drinker [facility] 00:00:00 00:00:[address] [facility] (finding) Alcohol Comment 2017-03-04 2017-03-04 occasional [facility] 00:00:00 00:00:00 Hospital History of Social 2017-03-04 2017-03-[address] function 00:00:00 00:00:00 Hospital Tobacco Comment 2017-03-04 2017-03-04 Quit 60 years ago [facility] 00:00:00 00:00:00 Hospital Sex Ass[birth year] At [birth year] [facility] 00:00:00 00:00:00 Hospital Smoking Status Start Date Stop Date Source Never smoked tobacco [facility] Ex-smoker 2017-03-04 00:00:00 2017-03-04 00:00:[facility] Medications Ordered Filled Start Stop Current Ordering Indication Dosage Frequency Signature Comments Components Source Medication Medication Date Date Medication? Clinician (SIG) Name Name EZETIMIBE 2022-0 Yes 10mg Take 10 mg Un kourtney ORAL 4-06 by mouth ity of 10:05: daily. [address] EZETIMIBE 2022-0 Yes 10mg Take 10 mg Un kourtney ORAL 4-06 by mouth ity of 10:05: daily. [address] EZETIMIBE 2022-0 Yes 10mg Take 10 mg Un kourtney ORAL 4-06 by mouth ity of 10:05: daily. [address] Branch EZETIMIBE 0 Yes 10mg Take 10 mg Un kourtney ORAL 4-06 by mouth ity of 10:05: daily. [address] Branch [place]-3-DHA 2022-0 2023- No 2400mg Take 2,400 Univers -EPA-Fish 3-21 03-21 mg by ity of Oil 1,200 17:36: 00:00 mouth [place] (144-216) 01 :00 daily. Medical mg Cap Branch Omeprazole 0 Yes 20mg Take 1 Unive rs 20 mg 3-21 tablet by ity of tablet 17:35: mouth in [place] 57 the Medical morning. Branch EZETIMIBE 0 Yes 10mg Take 10 mg Un kourtney ORAL 3-21 by mouth ity of 17:35: daily. [address] Branch CoQ10, 0 Yes 200mg Take 200 Univer s Ubiquinol, 3-21 mg by ity of 200 mg 17:35: mouth [place] capsule 57 daily. Medical Branch cholecalcif 0 Yes 1000U Take 1 Uni vers cory, 3-21 tablet by ity of vitamin D3, 17:35: mouth in [place] 25 mcg 57 the Medical (1,000 morning. Branch unit) tablet multivit-mi Yes Take by Uni vers n/iron/foli 3-21 mouth. ity of c/lutein 17:35: [place] (CENTRUM 57 Medical SILVER Branch WOMEN ORAL) busPIRone 0 Yes 10mg Take 1 Univer s 10 mg 3-21 tablet by ity of tablet 17:35: mouth [place] 57 before Medical meals and Branch at bedtime. Pt takes at night estradiol 0 Yes Insert Univer s (ESTRACE 3-21 into ity of VAGINAL) 17:35: vagina [place] 57 every 72 Medical (seventy-t Branch wo) hours. Pt took med on mon telmisartan 0 Yes 80mg Take 1 Univ ers 80 mg 3-21 tablet by ity of tablet 17:35: mouth in [place] 57 the Medical morning. Branch gabapentin 0 Yes 300mg Take 1 Univ ers ER 300 mg 3-21 tablet by ity o f tablet, 17:35: mouth in [place] extended 57 the Medical release 24 morning Branch hr and 1 tablet in the evening. Omeprazole 2022-0 Yes 20mg Take 1 Unive rs 20 mg 3-21 tablet by ity of tablet 17:35: mouth in [place] [address] the Medical morning. Branch EZETIMIBE 2022-0 Yes 10mg Take 10 mg Un kourtney ORAL 3-21 by mouth ity of 17:35: daily. [place] [address] Medical Branch CoQ10, 2022-0 Yes 200mg Take 200 Univer s Ubiquinol, 3-21 mg by ity of 200 mg 17:35: mouth [place] capsule 57 daily. Medical Branch cholecalcif 2022-0 Yes 1000U Take 1 Uni vers cory, 3-21 tablet by ity of vitamin D3, 17:35: [place] 25 [facility] 57 the Medical (,000 morning. Branch unit) tablet multivit-mi 0 Yes Take by Uni vers n/iron/foli 3-21 mouth. ity of c/lutein 17:35: [place] (CENTRUM 57 Medical SILVER Branch WOMEN ORAL) busPIRone 2022-0 Yes 10mg Take 1 Univer s 10 mg 3-21 tablet by ity of tablet 17:35: mouth [place] [address] before Medical meals and Branch at bedtime. Pt takes at night estradiol 2022-0 Yes Insert Univer s (ESTRACE 3-21 into ity of VAGINAL) 17:35: vagina [place] [address] every 72 Medical (seventy-t Branch wo) hours. Pt took med on mon telmisartan 2022-0 Yes 80mg Take 1 Univ ers 80 mg 3-21 tablet by ity of tablet 17:35: mouth in [place] [address] the Medical morning. Branch gabapentin 2022-0 Yes 300mg Take 1 Univ ers ER 300 mg 3-21 tablet by ity o f tablet, 17:35: mouth in [place] extended 57 the Medical release 24 morning Branch hr and 1 tablet in the evening. Omeprazole 2022-0 Yes 20mg Take 1 Unive rs 20 mg 3-21 tablet by ity of tablet 17:35: mouth in [place] [address] the Medical morning. Branch EZETIMIBE 2022-0 Yes 10mg Take 10 mg Un kourtney ORAL 3-21 by mouth ity of 17:35: daily. [place] [address] Medical Branch CoQ10, 2022-0 Yes 200mg Take 200 Univer s Ubiquinol, 3-21 mg by ity of 200 mg 17:35: mouth [place] capsule 57 daily. Medical Branch cholecalcif 0 Yes 1000U Take 1 Uni vers cory, 3-21 tablet by ity of vitamin D3, 17:35: mouth in [place] 25 mcg 57 the Medical ( morning. Branch unit) tablet multivit-mi 2022-0 Yes Take by Uni vers n/iron/foli 3-21 mouth. ity of c/lutein 17:35: [place] (CENTRUM 57 [facility] WOMEN ORAL) busPIRone 2022-0 Yes 10mg Take 1 Univer s 10 mg 3-21 tablet by ity of tablet 17:35: mouth [place] 57 before Medical meals and Branch at bedtime. Pt takes at night estradiol 2022-0 Yes Insert Univer s (ESTRACE 3-21 into ity of VAGINAL) 17:35: vagina [place] 57 every 72 Medical (seventy-t Branch wo) hours. Pt took med on mon telmisartan 2022-0 Yes 80mg Take 1 Univ ers 80 mg 3-21 tablet by ity of tablet 17:35: mouth in [place] 57 the Medical morning. Branch gabapentin 0 Yes 300mg Take 1 Univ ers ER 300 mg 3-21 tablet by ity o f tablet, 17:35: mouth in [place] extended 57 the Medical release 24 morning Branch hr and 1 tablet in the evening. Omeprazole 0 Yes 20mg Take 1 Unive rs 20 mg 3-21 tablet by ity of tablet 17:35: mouth in [place] 57 the Medical morning. Branch CoQ10, 0 Yes 200mg Take 200 Univer s Ubiquinol, 3-21 mg by ity of 200 mg 17:35: mouth [place] capsule 57 daily. Medical Branch cholecalcif 0 Yes 1000U Take 1 Uni vers cory, 3-21 tablet by ity of vitamin D3, 17:35: mouth in [place] 25 mcg 57 the Medical (000 morning. Branch unit) tablet multivit-mi 2022-0 Yes Take by Uni vers n/iron/foli 3-21 mouth. ity of c/lutein 17:35: [place] (CENTRUM 57 [facility] WOMEN ORAL) busPIRone 2022-0 Yes 10mg Take 1 Univer s 10 mg 3-21 tablet by ity of tablet 17:35: mouth [place] 57 before Medical meals and Branch at bedtime. Pt takes at night estradiol 2022-0 Yes Insert Univer s (ESTRACE 3-21 into ity of VAGINAL) 17:35: vagina [place] 57 every 72 Medical (seventy-t Branch wo) hours. Pt took med on mon telmisartan 2022-0 Yes 80mg Take 1 Univ ers 80 mg 3-21 tablet by ity of tablet 17:35: mouth in [place] 57 the Medical morning. Branch gabapentin 2022-0 Yes 300mg Take 1 Univ ers ER 300 mg 3-21 tablet by ity o f tablet, 17:35: mouth in [place] extended 57 the Medical release 24 morning Branch hr and 1 tablet in the evening. Omeprazole 2022-0 Yes 20mg Take 1 Unive rs 20 mg 3-21 tablet by ity of tablet 17:35: mouth in [place] 57 the Medical morning. Branch CoQ10, 2022-0 Yes 200mg Take 200 Univer s Ubiquinol, 3-21 mg by ity of 200 mg 17:35: mouth [place] capsule 57 daily. Medical Branch cholecalcif 2022-0 Yes 1000U Take 1 Uni vers cory, 3-21 tablet by ity of vitamin D3, 17:35: mouth in [place] 25 mcg 57 the Medical (1,000 morning. Branch unit) tablet multivit-mi 0 Yes Take by Uni vers n/iron/foli 3-21 mouth. ity of c/lutein 17:35: [place] (CENTRUM 57 Medical SILVER Branch WOMEN ORAL) busPIRone 2022-0 Yes 10mg Take 1 Univer s 10 mg 3-21 tablet by ity of tablet 17:35: mouth [place] 57 before Medical meals and Branch at bedtime. Pt takes at night estradiol 2022-0 Yes Insert Univer s (ESTRACE 3-21 into ity of VAGINAL) 17:35: vagina [place] 57 every 72 Medical (seventy-t Branch wo) hours. Pt took med on mon telmisartan 2022-0 Yes 80mg Take 1 Univ ers 80 mg 3-21 tablet by ity of tablet 17:35: mouth in [place] 57 the Medical morning. Branch gabapentin 2022-0 Yes 300mg Take 1 Univ ers ER 300 mg 3-21 tablet by ity o f tablet, 17:35: mouth in [place] extended 57 the Medical release 24 morning Branch hr and 1 tablet in the evening. Omeprazole 3-0 Yes 20mg Take 1 Unive rs 20 mg 3-21 tablet by ity of tablet 17:35: mouth in [place] 57 the Medical morning. Branch CoQ10, 2022-0 Yes 200mg Take 200 Univer s Ubiquinol, 3-21 mg by ity of 200 mg 17:35: mouth [place] capsule 57 daily. Medical Branch cholecalcif 2022-0 Yes 1000U Take 1 Uni vers cory, 3-21 tablet by ity of vitamin D3, 17:35: mouth in [place] 25 mcg 57 the Medical (000 morning. Branch unit) tablet multivit-mi 2022-0 Yes Take by Uni vers n/iron/foli 3-21 mouth. ity of c/lutein 17:35: [place] (CENTRUM 57 Medical SILVER Branch WOMEN ORAL) busPIRone 2022-0 Yes 10mg Take 1 Univer s 10 mg 3-21 tablet by ity of tablet 17:35: mouth [place] 57 before Medical meals and Branch at bedtime. Pt takes at night estradiol 2022-0 Yes Insert Univer s (ESTRACE 3-21 into ity of VAGINAL) 17:35: vagina [place] 57 every 72 Medical (seventy-t Branch wo) hours. Pt took med on mon telmisartan 2022-0 Yes 80mg Take 1 Univ ers 80 mg 3-21 tablet by ity of tablet 17:35: mouth in [place] 57 the Medical morning. Branch gabapentin 2022-0 Yes 300mg Take 1 Univ ers ER 300 mg 3-21 tablet by ity o f tablet, 17:35: mouth in [place] extended 57 the Medical release 24 morning Branch hr and 1 tablet in the evening. Omeprazole 2022-0 Yes 20mg Take 1 Unive rs 20 mg 3-21 tablet by ity of tablet 17:35: mouth in [place] 57 the Medical morning. Branch CoQ10, 2022-0 Yes 200mg Take 200 Univer s Ubiquinol, 3-21 mg by ity of 200 mg 17:35: mouth [place] capsule 57 daily. Medical Branch cholecalcif 2022-0 Yes 1000U Take 1 Uni vers cory, 3-21 tablet by ity of vitamin D3, 17:35: mouth in [place] 25 mcg 57 the Medical (000 morning. Branch unit) tablet multivit-mi 2023-0 Yes Take by Uni vers n/iron/foli 3-21 mouth. ity of c/lutein 17:35: [place] (CENTRUM 57 Medical SILVER Branch WOMEN ORAL) busPIRone 0 Yes 10mg Take 1 Univer s 10 mg 3-21 tablet by ity of tablet 17:35: mouth [place] 57 before Medical meals and Branch at bedtime. Pt takes at night estradiol Yes Insert Univer s (ESTRACE 3-21 into ity of VAGINAL) 17:35: vagina [place] 57 every 72 Medical (seventy-t Branch wo) hours. Pt took med on mon telmisartan Yes 80mg Take 1 Univ ers 80 mg 3-21 tablet by ity of tablet 17:35: mouth in [place] 57 the Medical morning. Branch gabapentin Yes 300mg Take 1 Univ ers ER 300 mg 3-21 tablet by ity o f tablet, 17:35: mouth in [place] extended 57 the Medical release 24 morning Branch hr and 1 tablet in the evening. benzonatate 2022- No [id number] 100mg Take 1 Univers 100 mg 3-21 04-21 capsule by ity of capsule 00:00: 04:59 mouth [place] 00 :00 every 8 Medical (eight) Branch hours as needed for Cough for up to 30 days. benzonatate 2022- No [id number] 100mg Take 1 Univers 100 mg 3-21 04-21 capsule by ity of capsule 00:00: 04:59 mouth [place] 00 :00 every 8 Medical (eight) Branch hours as needed for Cough for up to 30 days. benzonatate 2022- No [id number] 100mg Take 1 Univers 100 mg 3-21 04-21 capsule by ity of capsule 00:00: 04:59 mouth [place] 00 :00 every 8 Medical (eight) Branch hours as needed for Cough for up to 30 days. benzonatate 2022-0 2022- No [id number] 100mg Take 1 Univers 100 mg 3-21 04-21 capsule by ity of capsule 00:00: 04:59 mouth [place] 00 :00 every 8 Medical (eight) Branch hours as needed for Cough for up to 30 days. benzonatate 2022- No [id number] 100mg Take 1 Univers 100 mg 3-21 04-21 capsule by ity of capsule 00:00: 04:59 mouth [place] 00 :00 every 8 Medical (eight) Branch hours as needed for Cough for up to 30 days. levoFLOXaci 2022-0 2022- No [id number] 500mg Take 1 Univers n 500 mg 11-05 tablet by ity o f tablet 00:00: 04:59 mouth [place] 00 :00 every 24 Medical (-fo Branch ur) hours for 1 day. levoFLOXaci 0 2022- No [id number] 500mg Take 1 Univers n 500 mg 11-05 tablet by ity o f tablet 00:00: 04:59 mouth [place] 00 :00 every 24 Medical (-fo Branch ur) hours for 1 day. hydralAZINE Yes 10mg 10 mg, Univ ers (APRESOLINE 3-20 Slow IV ity o f ) injection 05:44: Push, [place] 10 mg 27 Q4HPRN, Medical Starting Branch on 11/04/22 at 0044, Until Discontinu ed, STAT, DBP=>100; SBP=>180 losartan Yes 50mg 50 mg, Univers (COZAAR) 3-20 Oral, ity of tablet 50 01:45: DAILY, [place] mg 00 First dose Medical on Sun Branch 11/03/22 at 2045, Until Discontinu ed carvediloL Yes 3.125mg 3.125 mg, Univers (COREG) 3-18 Oral, BID ity of tablet 17:00: MEALS, [place] 3.125 mg 00 First dose Medic al on Sat Branch 11/02/22 at 1200, Until Discontinu ed, Routine proMETHazin Yes 12.5mg 12.5 mg, Univers e 18 IV ity of (PHENERGAN) 15:44: Piggyback, [place] 12.5 mg in 55 Q4HPRN, Medica l NaCl 0.9% Starting Branch (NS) 50 mL on Sat IV 11/02/22 at piggyback 1044, Until Discontinu ed, Routine, N/V unresponsi ve to Ondansetro n ondansetron 2022- No 4mg 4 mg, Slow Univers (ZOFRAN 11-02 IV Push, ity of (PF)) 13:53: 21:11 Q6HPRN, [place] injection 4 46 :27 Nausea and Me dical mg Vomiting Branch (N/V), Starting on 11/02/22 at 0853
Do ses of ondansetro n 16 mg and above need to be administer ed via IV piggyback. For Dose >=24mg ECG monitoring is advisable.
ondansetron 2022- No 4mg 4 mg, Slow Univers (ZOFRAN 11-02 IV Push, ity of (PF)) 03:30: 02:38 ONCE, 1 [place] injection 4 00 :00 dose, On Medi dahlia mg Fri Branch 11/01/22 at 2230, Routine azithromyci 2022- No 500mg 500 mg, IV Univers n 11-01 Piggyback, ity of (ZITHROMAX) 21:30: 00:07 Q24H ABX, [place] 500 mg in 00 :00 2 doses, Medica l NaCl 0.9% First dose Bran ch (NS) 250 mL on Fri VIAL-MATE 11/01/22 at IV 1630, Last piggyback dose on 11/02/22 at 1630, Administer over 60 Minutes, 250 mL
Reas on for Anti-Infec tive: Empiric Therapy for Suspected Infection< br>Empiric Therapy Site: Respirator y
Durat ion of therapy: 72 hours cefTRIAXone 2022- No 1000mg 1,000 mg, Univers (ROCEPHIN) 11-01 IV ity of 1,000 mg in 20:00: 16:40 Piggyback, [place] NaCl 0.9% 00 :00 Q24H ABX, Medic al (NS) 100 mL 5 doses, Bran ch MINI-BAG First dose on Fri11/01/22 at 1500, Last dose on Fri11/05/22 at 1500, Administer over 30 Minutes, 100 mL
Reas on for Anti-Infec tive: Empiric Therapy for Suspected Infection< br>Empiric Therapy Site: Respirator y
Durat ion of therapy: 5 days KCL 20 Yes 40meq 40 mEq, Univers mEq/15 mL 11-01 Oral, ity of solution 40 14:00: DAILY, [place] mEq 00 First dose Medical on Fri Branch 11/01/22 at 0900, Until Discontinu ed, Routine ezetimibe 0 Yes 10mg 10 mg, Univer s (ZETIA) 11-01 Oral, ity of tablet 10 14:00: DAILY, [place] mg 00 First dose Medical on Fri11/01/22 at 0900, Until Discontinu ed omeprazole 0 Yes 20mg 20 mg, Unive rs (PRILOSEC) 11-01 Oral, ity of capsule 20 14:00: DAILY, [place] mg 00 First dose Medical on Fri11/01/22 at 0900, Until Discontinu ed rivaroxaban 0 Yes 15mg 15 mg, Univ ers (XARELTO) 11-01 Oral, ity of tablet 15 14:00: DAILY, [place] mg 00 First dose Medical on Fri11/01/22 at 0900, Until Discontinu ed, Routine predniSONE 2022- No 20mg 20 mg, Univ ers (DELTASONE) 11-01 0320 Oral, ity of tablet 20 14:00: 18:09 DAILY, [place] mg 00 :51 First dose Medical on Fri11/01/22 at 0900, Until Discontinu ed, Routine levalbutero 0 Yes .63mg 0.63 mg, U nivers l (XOPENEX) 11-01 Inhalation it y of nebulizer 13:00: , TID, [place] solution 00 First dose Medic al 0.63 mg (after Branch last reorder) on Fri11/01/22 at 0800, Until Discontinu ed, Routine gabapentin 0 Yes 300mg 300 mg, Uni vers (NEURONTIN) 11-01 Oral, ity of capsule 300 03:05: BIDPRN, [place] mg 22 Starting Medical on Fri Branch 10/31/22 at 2205, Until Discontinu ed, neuropathy busPIRone 0 Yes 10mg 10 mg, Univer s (BUSPAR) 11-01 Oral, ity of tablet 10 03:04: TIDPRN, [place] mg 51 Starting Medical on Fri Branch 10/31/22 at 2204, Until Discontinu ed, Routine, anxiety NaCl 0.9% 0 2022- No 1000mL at 75 Univ ers (NS) IV 10-31 mL/hr, IV ity of infusion 21:15: 05:14 Infusion, [place] 1,000 mL 00 :00 CONTINUOUS Medic al , Starting Branch on Jeanine 10/31/22 at 1615, Until 11/01/22 at 0014, Routine acetaminoph Yes 650mg 650 mg, Un kourtney en 10-31 Oral, ity of (TYLENOL) 21:00: Q6HPRN, [place] tablet 650 39 Starting Medic al mg on [place] Branch 10/31/22 at 1600, Until Discontinu ed, Routine, Pain (scale 1-3) azithromyci 2022- No 500mg 500 mg, IV Univers n 10-31 Piggyback, ity of (ZITHROMAX) 21:00: 22:32 [place]CE, 1 [place] 500 mg in 00 :00 dose, On Medica l NaCl 0.9% [facility] Branch (NS) 250 mL 10/31/22 at VIAL-MATE 1600, IV Administer piggyback over 60 Minutes, 250 mL
R basilio for Anti-Infec tive: Documented Infection< br>Documen pina Infection Site: Respirator y
Du ration of Therapy: Other (see Comments) levalbutero 2022- No .63mg 0.63 mg, Univers l (XOPENEX) 10-31 Inhalation i ty of nebulizer 20:15: 19:25 , ONCE, 1 [place] solution 00 :00 dose, On Medical 0.63 mg [facility] Branch 10/31/22 at 1515, ANGEL cefTRIAXone 2022- No 1000mg 1,000 mg, Univers (ROCEPHIN) 10-31 IV ity of 1,000 mg in 20:15: 21:31 Piggyback, [place] NaCl 0.9% 00 :00 ONCE, 1 Medical (NS) 100 mL dose, On Bran ch MINI-BAG Jean[place] 10/31/22 at 1515, Administer over 30 Minutes, 100 mL
Reas on for Anti-Infec tive: Documented Infection< br>Documen pina Infection Site: Respirator y
Du ration of Therapy: Other (see Comments) methylPREDN 2022- No 125mg 125 mg, U nivers ISolone sod 10-31 Slow IV ity of succ 18:15: 18:19 Push, [place] (SOLU-MEDRO 00 :00 ONCE, 1 Medic al L (PF)) dose, On Branch injection [place] 125 mg 10/31/22 at 1315, ANGEL levalbutero 2022- No .63mg 0.63 mg, Univers l (XOPENEX) 10-31 Inhalation i ty of nebulizer 18:15: 17:31 , ONCE, 1 [place] solution 00 :00 dose, On Medical 0.63 mg [place] Branch 10/31/22 at 1315, Routine iopamidol 2022- No [id number] 80mL 80 mL, U nivers (ISOVUE 10-31 Intravenou ity o f 370-500 mL) 18:14: 18:30 s, ONCE, 1 [place] injection 00 :00 dose, On Medica l 80 mL [place] Branch 10/31/22 at 1330, Routine NaCl 0.9% 2022- No 500mL at 999 Univ ers (NS) bolus 10-31 mL/hr, 500 it y of infusion 16:30: 16:39 mL, IV [place] 500 mL 00 :00 Infusion, Medical ONCE, 1 Branch dose, On [place] 10/31/22 at 1130, STAT amoxicillin 2022- No 500mg Take 1 [place] 500 mg 10-26 capsule by ity of capsule 00:00: 00:00 mouth in [place] 00 :00 the Medical morning Branch and 1 capsule at noon and 1 capsule in the evening. [place]-3-DHA 2021-08 Yes 2400mg Take 2,400 Univers -EPA-Fish 2-06 mg by ity of Oil 1,200 09:11: mouth [place] (144-216) 41 daily. Medical mg Cap Branch CoQ10, 2021-08 Yes 200mg Take 200 Univer s Ubiquinol, 2-06 mg by ity of 200 mg 09:11: mouth [place] capsule 41 daily. Medical Branch multivit-mi 2021-08 Yes Take by Uni vers n/iron/foli 2-06 mouth. ity of c/lutein 09:11: [place] ([address] WOMEN ORAL) [place]-3-DHA 2021-08 Yes 2400mg Take 2,400 Univers -EPA-Fish 2-06 mg by ity of Oil 1,200 09:11: mouth [place] (144-216) 41 daily. Medical mg Cap Branch CoQ10, 2021-08 Yes 200mg Take 200 Univer s Ubiquinol, 2-06 mg by ity of 200 mg 09:11: mouth [place] capsule 41 daily. Medical Branch multivit-mi 2021-08 Yes Take by Uni vers n/iron/foli 2-06 mouth. ity of c/lutein 09:11: [place] ([address] WOMEN ORAL) [place]-3-D[place] 2021-08 Yes 2400mg Take 2,400 Univers -EPA-Fish 2-06 mg by ity of Oil 1,200 09:11: mouth [place] (144-216) 41 daily. Medical mg Cap Branch CoQ10, 2021-08 Yes 200mg Take 200 Univer s Ubiquinol, 2-06 mg by ity of 200 mg 09:11: mouth [place] capsule 41 daily. Medical Branch multivit-mi 2021-08 Yes Take by Uni vers n/iron/foli 2-06 mouth. ity of c/lutein 09:11: [place] ([address] WOMEN ORAL) [place]-3-DHA 2021-08 Yes 2400mg Take 2,400 Univers -EPA-Fish 2-06 mg by ity of Oil 1,200 09:11: mouth [place] (144-216) 41 daily. Medical mg Cap Branch CoQ10, 2021-08 Yes 200mg Take 200 Univer s Ubiquinol, 2-06 mg by ity of 200 mg 09:11: mouth [place] capsule 41 daily. Medical Branch multivit-mi 2021-08 Yes Take by Uni vers n/iron/foli 2-06 mouth. ity of c/lutein 09:11: [place] ([address] WOMEN ORAL) [place]3-D[place] 2021-08 Yes 2400mg Take 2,400 Univers -EPA-Fish 2-06 mg by ity of Oil 1,200 09:11: mouth [place] (144-216) 41 daily. Medical mg Cap Branch CoQ10, 2021-08 Yes 200mg Take 200 Univer s Ubiquinol, 2-06 mg by ity of 200 mg 09:11: mouth [place] capsule 41 daily. Medical Branch multivit-mi 2021-08 Yes Take by Uni vers n/iron/foli 2-06 mouth. ity of c/lutein 09:11: [place] ([address] WOMEN ORAL) [place]-3[place] 2021-08 Yes 2400mg Take 2,400 Univers -EPA-Fish 2-06 mg by ity of Oil 1,200 09:11: mouth [place] (144-216) 41 daily. Medical mg Cap Branch CoQ10, 2021-08 Yes 200mg Take 200 Univer s Ubiquinol, 2-06 mg by ity of 200 mg 09:11: mouth [place] capsule 41 daily. Medical Branch multivit-mi 2021-08 Yes Take by Uni vers n/iron/foli 2-06 mouth. ity of c/lutein 09:11: [place] ([address] WOMEN ORAL) [place]-3-DHA 2021-08 Yes 2400mg Take 2,400 Univers -EPA-Fish 2-06 mg by ity of Oil 1,200 09:11: mouth [place] (144-216) 41 daily. Medical mg [facility] CoQ10, 2021-08 Yes 200mg Take 200 Univer s Ubiquinol, 2-06 mg by ity of 200 mg 09:11: mouth [place] capsule 41 daily. Medical Branch multivit-mi 2021-08 Yes Take by Uni vers n/iron/foli 2-06 mouth. ity of c/lutein 09:11: [place] ([address] WOMEN ORAL) carvediloL 2021-08 Yes [id number] 6.25mg Take 1 Univers 6.25 mg 2-06 tablet by ity of tablet 00:00: mouth in [place] 00 the Medical morning Branch and 1 tablet in the evening. Take with meals. furosemide 2021-08 Yes [id number] 20mg Take 1 Univers 20 mg 2-06 02 tablet by ity of tablet 00:00: mouth in [place] 00 the Medical morning. Branch rivaroxaban 2021-08 Yes 1358 15mg Take 1 Univ ers (XARELTO) 2-06 tablet by ity o f 15 mg 00:00: mouth in [place] tablet 00 the Medical morning. Branch Indication s: atrial fibrillati on carvediloL 2021-08 Yes [id number] 6.25mg Take 1 Univers 6.25 mg 2-06 tablet by ity of tablet 00:00: mouth in [place] the Medical morning Branch and 1 tablet in the evening. Take with meals. furosemide 2021-08 Yes [id number] 20mg Take 1 Univers 20 mg 2-06 02 tablet by ity of tablet 00:00: mouth in [place] 00 the Medical morning. Branch rivaroxaban 2021-08 Yes 1358 15mg Take 1 Univ ers (XARELTO) 2-06 tablet by ity o f 15 mg 00:00: mouth in [place] tablet 00 the Medical morning. Branch Indication s: atrial fibrillati on carvediloL 2021-08 Yes [id number] 6.25mg Take 1 Univers 6.25 mg 2-06 tablet by ity of tablet 00:00: mouth in [place] the Medical morning Branch and 1 tablet in the evening. Take with meals. furosemide 2021-08 Yes [id number] 20mg Take 1 Univers 20 mg 2-06 02 tablet by ity of tablet 00:00: mouth in [place] the morning. Branch rivaroxaban 2021-08 Yes 1358 15mg Take 1 Univ ers (XARELTO) 2-06 tablet by ity o f 15 mg 00:00: mouth in [place] tablet 00 the Medical morning. Branch Indication s: atrial fibrillati on carvediloL 2021-08 Yes [id number] 6.25mg Take 1 Univers 6.25 mg 2-06 tablet by ity of tablet 00:00: mouth in [place] the Medical morning Branch and 1 tablet in the evening. Take with meals. furosemide 2021-08 Yes [id number] 20mg Take 1 Univers 20 mg 2-06 02 tablet by ity of tablet 00:00: mouth in [place] the Medical morning. Branch rivaroxaban 2021-08 Yes 1358 15mg Take 1 Univ ers (XARELTO) 2-06 tablet by ity o f 15 mg 00:00: mouth in [place] tablet 00 the Medical morning. Branch Indication s: atrial fibrillati on carvediloL 2021-08 Yes [id number] 6.25mg Take 1 Univers 6.25 mg 2-06 tablet by ity of tablet 00:00: mouth in [place] the Medical morning Branch and 1 tablet in the evening. Take with meals. furosemide 2021-08 Yes [id number] 20mg Take 1 Univers 20 mg 2-06 02 tablet by ity of tablet 00:00: mouth in [place] 00 the Medical morning. Branch rivaroxaban 2021-08 Yes 1358 15mg Take 1 Univ ers (XARELTO) 2-06 tablet by ity o f 15 mg 00:00: mouth in [place] tablet 00 the Medical morning. Branch Indication s: atrial fibrillati on carvediloL 2021-08 Yes [id number] 6.25mg Take 1 Univers 6.25 mg 2-06 tablet by ity of tablet 00:00: mouth in [place] 00 the Medical morning Branch and 1 tablet in the evening. Take with meals. furosemide 2021-08 Yes [id number] 20mg Take 1 Univers 20 mg 2-06 02 tablet by ity of tablet 00:00: mouth in [place] 00 the Medical morning. Branch rivaroxaban 2021-08 Yes 1358 15mg Take 1 Univ ers (XARELTO) 2-06 tablet by ity o f 15 mg 00:00: mouth in [place] tablet 00 the Medical morning. Branch Indication s: atrial fibrillati on carvediloL 2021-08 Yes [id number] 6.25mg Take 1 Univers 6.25 mg 2-06 tablet by ity of tablet 00:00: mouth in [place] the Medical morning Branch and 1 tablet in the evening. Take with meals. furosemide 2021-08 Yes [id number] 20mg Take 1 Univers 20 mg 2-06 02 tablet by ity of tablet 00:00: mouth in [place] the Medical morning. Branch rivaroxaban 2021-08 Yes 1358 15mg Take 1 Univ ers (XARELTO) 2-06 tablet by ity o f 15 mg 00:00: mouth in [place] tablet 00 the Medical morning. Branch Indication s: atrial fibrillati on carvediloL 2021-08 Yes [id number] 6.25mg Take 1 Univers 6.25 mg 2-06 tablet by ity of tablet 00:00: mouth in [place] the Medical morning Branch and 1 tablet in the evening. Take with meals. furosemide 2021-08 Yes [id number] 20mg Take 1 Univers 20 mg 2-06 02 tablet by ity of tablet 00:00: mouth in [place] 00 the Medical morning. Branch rivaroxaban 2021-08 Yes 1358 15mg Take 1 Univ ers (XARELTO) 2-06 tablet by ity o f 15 mg 00:00: mouth in [place] tablet 00 the Medical morning. Branch Indication s: atrial fibrillati on carvediloL 2021-08 Yes [id number] 6.25mg Take 1 Univers 6.25 mg 2-06 tablet by ity of tablet 00:00: mouth in [place] 00 the Medical morning Branch and 1 tablet in the evening. Take with meals. furosemide 2021-08 Yes [id number] 20mg Take 1 Univers 20 mg 2-06 02 tablet by ity of tablet 00:00: mouth in [place] 00 the Medical morning. Branch rivaroxaban 2021-08 Yes 1358 15mg Take 1 Univ ers (XARELTO) 2-06 tablet by ity o f 15 mg 00:00: mouth in [place] tablet 00 the Medical morning. Branch Indication s: atrial fibrillati on carvediloL 2021-08 Yes [id number] 6.25mg Take 1 Univers 6.25 mg 2-06 tablet by ity of tablet 00:00: mouth in [place] 00 the Medical morning Branch and 1 tablet in the evening. Take with meals. furosemide 2021-08 Yes [id number] 20mg Take 1 Univers 20 mg 2-06 02 tablet by ity of tablet 00:00: mouth in [place] 00 the Medical morning. Branch rivaroxaban 2021-08 Yes 1358 15mg Take 1 Univ ers (XARELTO) 2-06 tablet by ity o f 15 mg 00:00: mouth in [place] tablet 00 the Medical morning. Branch Indication s: atrial fibrillati on carvediloL 2021-08 Yes [id number] 6.25mg Take 1 Univers 6.25 mg 2-06 tablet by ity of tablet 00:00: mouth in [place] the Medical morning Branch and 1 tablet in the evening. Take with meals. furosemide 2021-08 Yes [id number] 20mg Take 1 Univers 20 mg 2-06 02 tablet by ity of tablet 00:00: mouth in [place] 00 the Medical morning. Branch rivaroxaban 2021-08 Yes 1358 15mg Take 1 Univ ers (XARELTO) 2-06 tablet by ity o f 15 mg 00:00: mouth in [place] tablet 00 the Medical morning. Branch Indication s: atrial fibrillati on carvediloL 2021-08 Yes [id number] 6.25mg Take 1 Univers 6.25 mg 2-06 tablet by ity of tablet 00:00: mouth in [place] 00 the Medical morning Branch and 1 tablet in the evening. Take with meals. furosemide 2021-08 Yes [id number] 20mg Take 1 Univers 20 mg 2-06 02 tablet by ity of tablet 00:00: mouth in [place] 00 the Medical morning. Branch rivaroxaban 2021-08 Yes 1358 15mg Take 1 Univ ers (XARELTO) 2-06 tablet by ity o f 15 mg 00:00: mouth in [place] tablet 00 the Medical morning. Branch Indication s: atrial fibrillati on carvediloL 2021-08 Yes [id number] 6.25mg Take 1 Univers 6.25 mg 2-06 tablet by ity of tablet 00:00: mouth in [place] the morning Branch and 1 tablet in the evening. Take with meals. furosemide 2021-08 Yes [id number] 20mg Take 1 Univers 20 mg 2-06 02 tablet by ity of tablet 00:00: mouth in [place] the Medical morning. Branch rivaroxaban 2021-08 Yes 1358 15mg Take 1 Univ ers (XARELTO) 2-06 tablet by ity o f 15 mg 00:00: mouth in [place] tablet 00 the Medical morning. Branch Indication s: atrial fibrillati on carvediloL 2021-08 Yes [id number] 6.25mg Take 1 Univers 6.25 mg 2-06 tablet by ity of tablet 00:00: mouth in [place] the morning Branch and 1 tablet in the evening. Take with meals. furosemide 2021-08 Yes [id number] 20mg Take 1 Univers 20 mg 2-06 02 tablet by ity of tablet 00:00: mouth in [place] the morning. Branch rivaroxaban 2021-08 Yes 1358 15mg Take 1 Univ ers (XARELTO) 2-06 tablet by ity o f 15 mg 00:00: mouth in [place] tablet 00 the Medical morning. Branch Indication s: atrial fibrillati on Dose 2021-0 No Unknown - 00:00: 00 Dose 2021-0 No Unknown - 00:00: 00 Dose 2021-0 No Unknown - 00:00: 00 &lt 2-0 No 8-10 00:00: 00 &lt 2-0 No 8-10 00:00: 00 Dose 2022-0 No 150 Unknown 8-10 00:00: 00 &lt 2022-0 No 8-10 00:00: 00 &lt 2022-0 No 8-10 00:00: 00 Dose 2022-0 No 150 Unknown 8-10 00:00: 00 &lt 2022-0 No 8-10 00:00: 00 &lt 2022-0 No 8-10 00:00: 00 Dose 2022-0 No 150 Unknown 8-10 00:00: 00 TAKE 1 2-0 No 20 TABLET BY 03-15 MOUTH DAILY 00:00: 00 Dose 2022-0 No 500 Unknown 03-15 00:00: 00 &lt 2022-0 No 20 03-15 00:00: 00 TAKE 1 2021-0 No 20 TABLET BY 7 MOUTH DAILY 00:00: 00 Dose 2-0 No 500 Unknown 03-15 00:00: 00 &lt 2022-0 No 20 03-15 00:00: 00 TAKE 1 2021-0 No 20 TABLET BY 03-15 MOUTH DAILY 00:00: 00 Dose 2022-0 No 500 Unknown 03-15 00:00: 00 &lt 2022-0 No 20 7 00:00: 00 &lt 2022-0 No 7-21 00:00: 00 &lt 2022-0 No 7-21 00:00: 00 &lt 2022-0 No 7-21 00:00: 00 &lt 2022-0 No 7-20 00:00: 00 &lt 2022-0 No 7-20 00:00: 00 &lt 2022-0 No 7-20 00:00: 00 Xarelto 15 2-0 No 1mg mg tablet 7-13 00:00: 00 furosemide 2022-0 No 1mg 20 mg 7-13 tablet 00:00: 00 carvedilol 2022-0 No 1mg 6.25 mg 7-13 tablet 00:00: 00 Vagifem 10 2021-0 No 1mcg mcg vaginal 7-13 tablet 00:00: 00 fluticasone 2022-0 No 1mcg/ac propionate 7-13 tuation 50 00:00: mcg/actuati 00 on nasal spray,suspe nsion &lt 2021-0 No 150 7-13 00:00: 00 &lt 2022-0 No 7-13 00:00: 00 &lt 2022-0 No 625 7-13 00:00: 00 &lt 2022-0 No 7-13 00:00: 00 &lt 2022-0 No 7-13 00:00: 00 &lt 2022-0 No 625 7-13 00:00: 00 Xarelto 15 2-0 No 1mg mg tablet 7-13 00:00: 00 furosemide 2022-0 No 1mg 20 mg 7-13 tablet 00:00: 00 carvedilol 2022-0 No 1mg 6.25 mg 7-13 tablet 00:00: 00 Vagifem 10 2-0 No 1mcg mcg vaginal 7-13 tablet 00:00: 00 fluticasone 2-0 No 1mcg/ac propionate 7-13 tuation 50 00:00: mcg/actuati 00 on nasal spray,suspe nsion &lt 2-0 No 150 7-13 00:00: 00 &lt 2022-0 No 7-13 00:00: 00 &lt 2022-0 No 625 7-13 00:00: 00 &lt 2022-0 No 7-13 00:00: 00 &lt 2022-0 No 7-13 00:00: 00 &lt 2022-0 No 625 7-13 00:00: 00 Xarelto 15 2-0 No 1mg mg tablet 7-13 00:00: 00 furosemide 2022-0 No 1mg 20 mg 7-13 tablet 00:00: 00 carvedilol 2022-0 No 1mg 6.25 mg 7-13 tablet 00:00: 00 Vagifem 10 2-0 No 1mcg mcg vaginal 7-13 tablet 00:00: 00 fluticasone 2022-0 No 1mcg/ac propionate 7-13 tuation 50 00:00: mcg/actuati 00 on nasal spray,suspe nsion &lt 2022-0 No 150 7-13 00:00: 00 &lt 2022-0 No 7-13 00:00: 00 &lt 2022-0 No 625 7-13 00:00: 00 &lt 2022-0 No 7-13 00:00: 00 &lt 2022-0 No 7-13 00:00: 00 &lt 2022-0 No 625 7-13 00:00: 00 nystatin 2-0 No 1unit/g 100,000 6-22 sam unit/gram 00:00: topical 00 powder ezetimibe 2-0 No 1mg 10 mg 6-22 tablet 00:00: 00 lactulose 2022-0 No 3gram/1 10 gram/15 6-22 5 mL mL oral 00:00: solution 00 &lt 2022-0 No 6-22 00:00: 00 &lt 2022-0 No 6-22 00:00: 00 nystatin 2-0 No 1unit/g 100,000 6-22 sam unit/gram 00:00: topical 00 powder ezetimibe 2-0 No 1mg 10 mg 6-22 tablet 00:00: 00 lactulose 2-0 No 3gram/1 10 gram/15 6-22 5 mL mL oral 00:00: solution 00 &lt 2-0 No 6-22 00:00: 00 &lt 2022-0 No 6-22 00:00: 00 nystatin 2-0 No 1unit/g 100,000 6-22 sam unit/gram 00:00: topical 00 powder ezetimibe 2-0 No 1mg 10 mg 6-22 tablet 00:00: 00 lactulose 2-0 No 3gram/1 10 gram/15 6-22 5 mL mL oral 00:00: solution 00 &lt 2-0 No 6-22 00:00: 00 &lt 2022-0 No 6-22 00:00: 00 Micardis 80 2-0 No 1mg mg tablet 6-16 00:00: 00 buspirone 2022-0 No 1mg 10 mg 6-16 tablet 00:00: 00 Micardis 80 2022-0 No 1mg mg tablet 6-16 00:00: 00 buspirone 2022-0 No 1mg 10 mg 6-16 tablet 00:00: 00 Micardis 80 2022-0 No 1mg mg tablet 6-16 00:00: 00 buspirone 2022-0 No 1mg 10 mg 6-16 tablet 00:00: 00 Omeprazole 2-0 Yes 20mg Take 20 mg U nivers 20 mg -02 by mouth ity of tablet 11:28: daily. [address] EZETIMIBE 2022-0 Yes 10mg Take 10 mg Un [place] ORAL 5-02 by mouth ity of 11:28: daily. [place] [address] Medical Branch [place]-3-DHA 0 Yes 2400mg Take 2,400 Univers -EPA-Fish 5-02 mg by ity of Oil (FISH 11:28: mouth [place] OIL) 1,200 55 daily. Medical (144-216) Branch mg Cap CoQ10, 2021-0 Yes 200mg Take 200 Univer s Ubiquinol, 5-02 mg by ity of 200 mg 11:28: mouth [place] capsule 55 daily. Medical Branch cholecalcif Yes 1000U Take 1,000 Univers cory, 5-02 Units by ity of vitamin D3, 11:28: mouth [place] (VITAMIN 55 daily. Medical D3) 25 mcg [place] (1,000 unit) tablet multivit-mi Yes Take by Uni vers n/iron/foli 5-02 mouth. ity of c/lutein 11:28: [place] (CENTRUM 55 Medical SILVER Branch WOMEN ORAL) busPIRone Yes 10mg Take 10 mg Un [place] 10 mg 5-02 by mouth ity of tablet 11:28: before [place] [address] meals and Medical at Branch bedtime. Pt takes at night estradiol 0 Yes Insert Univer s (ESTRACE 12-17 into ity of VAGINAL) 11:28: vagina [place] 55 every 72 Medical (seventy-t Branch wo) hours. Pt took med on mon telmisartan 0 Yes 80mg Take 80 mg Univers (MICARDIS) 5-02 by mouth ity o f 80 mg 11:28: daily. [place] [address] Medical Branch Omeprazole 0 Yes 20mg Take 20 mg U nivers 20 mg 5-02 by mouth ity of tablet 11:28: daily. [place] [address] Medical Branch EZETIMIBE 0 Yes 10mg Take 10 mg Un [place] ORAL 5-02 by mouth ity of 11:28: daily. [address] Branch [place]-3-DHA 0 Yes 2400mg Take 2,400 Univers -EPA-Fish 5-02 mg by ity of Oil (FISH 11:28: mouth [place] OIL) 1,200 55 daily. Medical (144-216) Branch mg Cap CoQ10, 0 Yes 200mg Take 200 Univer s Ubiquinol, 5-02 mg by ity of 200 mg 11:28: mouth [place] capsule 55 daily. Medical Branch cholecalcif Yes 1000U Take 1,000 Univers cory, 5-02 Units by ity of vitamin D3, 11:28: mouth [place] (VITAMIN 55 daily. Medical D3) 25 mcg Branch (1,000 unit) tablet multivit-mi Yes Take by Uni vers n/iron/foli 5-02 mouth. ity of c/lutein 11:28: [place] (CENTRUM 55 Medical SILVER Branch WOMEN ORAL) busPIRone Yes 10mg Take 10 mg Un [place] 10 mg 5-02 by mouth ity of tablet 11:28: before [place] 55 meals and Medical at Branch bedtime. Pt takes at night estradiol Yes Insert Univer s (ESTRACE 12-17 into ity of VAGINAL) 11:28: vagina [place] 55 every 72 Medical (seventy-t Branch wo) hours. Pt took med on mon telmisartan Yes 80mg Take 80 mg Univers (MICARDIS) 5-02 by mouth ity o f 80 mg 11:28: daily. [place] [facility] 55 Medical Branch Omeprazole Yes 20mg Take 20 mg U nivers 20 mg 5-02 by mouth ity of tablet 11:28: daily. [place] [address] Medical Branch EZETIMIBE Yes 10mg Take 10 mg Un [place] ORAL 5-02 by mouth ity of 11:28: daily. [place] [address] Medical Branch [place]-3-DHA Yes 2400mg Take 2,400 Univers -EPA-Fish 5-02 mg by ity of Oil (FISH 11:28: mouth [place] OIL) 1,200 55 daily. Medical (144-216) Branch mg Cap CoQ10, Yes 200mg Take 200 Univer s Ubiquinol, 5-02 mg by ity of 200 mg 11:28: mouth [place] capsule 55 daily. Medical Branch cholecalcif Yes 1000U Take 1,000 Univers cory, 5-02 Units by ity of vitamin D3, 11:28: mouth [place] (VITAMIN 55 daily. Medical D3) 25 mcg Branch (1,000 unit) tablet multivit-mi Yes Take by Uni vers n/iron/foli 5-02 mouth. ity of c/lutein 11:28: [place] ([facility] 55 [facility] WOMEN ORAL) busPIRone Yes 10mg Take 10 mg Un [place] 10 mg 5-02 by mouth ity of tablet 11:28: before [place] 55 meals and Medical at [place] bedtime. Pt takes at night estradiol Yes Insert Univer s (ESTRACE 5-02 into ity of VAGINAL) 11:28: vagina [place] 55 every 72 Medical (seventy-t [place] wo) hours. Pt took med on mon telmisartan Yes 80mg Take 80 mg Univers (MICARDIS) 5-02 by mouth ity o f 80 mg 11:28: daily. [address] Branch Omeprazole Yes 20mg Take 20 mg U nivers 20 mg 5-02 by mouth ity of tablet 11:28: daily. [address] Branch EZETIMIBE Yes 10mg Take 10 mg Un [place] ORAL 5-02 by mouth ity of 11:28: daily. [address] Branch [place]-3-DHA Yes 2400mg Take 2,400 Univers -EPA-Fish 5-02 mg by ity of Oil (FISH 11:28: mouth [place] OIL) 1,200 55 daily. Medical (144-216) Branch mg Cap CoQ10, Yes 200mg Take 200 Univer s Ubiquinol, 5-02 mg by ity of 200 mg 11:28: mouth [place] capsule 55 daily. [facility] Branch cholecalcif Yes 1000U Take 1,000 Univers cory, 5-02 Units by ity of vitamin D3, 11:28: mouth [place] (VITAMIN 55 daily. Medical D3) 25 mcg Branch (1,000 unit) tablet multivit-mi Yes Take by Uni vers n/iron/foli 5-02 mouth. ity of c/lutein 11:28: [place] ([facility] 55 [facility] WOMEN ORAL) busPIRone Yes 10mg Take 10 mg Un [place] 10 mg 5-02 by mouth ity of tablet 11:28: before [place] 55 meals and Medical at [place] bedtime. Pt takes at night estradiol Yes Insert Univer s (ESTRACE 5-02 into ity of VAGINAL) 11:28: vagina [place] 55 every 72 Medical (seventy-t Branch wo) hours. Pt took med on mon telmisartan Yes 80mg Take 80 mg Univers (MICARDIS) 5-02 by mouth ity o f 80 mg 11:28: daily. [place] tablet 55 Medical Branch Omeprazole 0 Yes 20mg Take 20 mg U nivers 20 mg 5-02 by mouth ity of tablet 11:28: daily. [place] [address] Medical Branch EZETIMIBE 0 Yes 10mg Take 10 mg Un [place] ORAL 5-02 by mouth ity of 11:28: daily. [place] [address] Medical Branch [place]-3-DHA Yes 2400mg Take 2,400 Univers -EPA-Fish 5-02 mg by ity of Oil (FISH 11:28: mouth [place] OIL) 1,200 55 daily. Medical (144-216) Branch mg Cap CoQ10, Yes 200mg Take 200 Univer s Ubiquinol, 5-02 mg by ity of 200 mg 11:28: mouth [place] capsule 55 daily. Medical Branch cholecalcif Yes 1000U Take 1,000 Univers cory, 5-02 Units by ity of vitamin D3, 11:28: mouth [place] (VITAMIN 55 daily. Medical D3) 25 mcg [place] (1,000 unit) tablet multivit-mi Yes Take by Uni vers n/iron/foli -02 mouth. ity of c/lutein 11:28: [place] (CENTRUM 55 Medical SILVER Branch WOMEN ORAL) busPIRone Yes 10mg Take 10 mg Un [place] 10 mg 02 by mouth ity of tablet 11:28: before [place] 55 meals and Medical at Branch bedtime. Pt takes at night estradiol Yes Insert Univer s (ESTRACE 02 into ity of VAGINAL) 11:28: vagina [place] 55 every 72 Medical (seventy-t Branch wo) hours. Pt took med on mon telmisartan Yes 80mg Take 80 mg Univers (MICARDIS) -02 by mouth ity o f 80 mg 11:28: daily. [place] tablet 55 Medical Branch Omeprazole Yes 20mg Take 20 mg U nivers 20 mg -02 by mouth ity of tablet 11:28: daily. [place] 55 Medical Branch EZETIMIBE 0 Yes 10mg Take 10 mg Un [place] ORAL 5-02 by mouth ity of 11:28: daily. [place] [address] Medical Branch [place]-3-DHA 0 Yes 2400mg Take 2,400 Univers -EPA-Fish 5-02 mg by ity of Oil (FISH 11:28: mouth [place] OIL) 1,200 55 daily. Medical (144-216) Branch mg Cap CoQ10, 2021-0 Yes 200mg Take 200 Univer s Ubiquinol, 5-02 mg by ity of 200 mg 11:28: mouth [place] capsule 55 daily. [facility] Branch cholecalcif Yes 1000U Take 1,000 Univers cory, 5-02 Units by ity of vitamin D3, 11:28: mouth [place] (VITAMIN 55 daily. Medical D3) 25 mcg [place] (1,000 unit) tablet multivit-mi Yes Take by Uni vers n/iron/foli 5-02 mouth. ity of c/lutein 11:28: [place] (CENTRUM 55 Medical SILVER Branch WOMEN ORAL) busPIRone Yes 10mg Take 10 mg Un kourtney 10 mg 5-02 by mouth ity of tablet 11:28: before [place] [address] meals and Medical at Branch bedtime. Pt takes at night estradiol 0 Yes Insert Univer s (ESTRACE 02 into ity of VAGINAL) 11:28: vagina [place] 55 every 72 Medical (seventy-t Branch wo) hours. Pt took med on mon telmisartan 0 Yes 80mg Take 80 mg [facility] (MICARDIS) 5-02 by mouth ity o f 80 mg 11:28: daily. [place] tablet [address] [place] [address] Branch Omeprazole 0 Yes 20mg Take 20 mg U nivers 20 mg 5-02 by mouth ity of tablet 11:28: daily. [address] EZETIMIBE 0 Yes 10mg Take 10 mg Un [place] ORAL 5-02 by mouth ity of 11:28: daily. [address] [place]-3-DHA 0 Yes 2400mg Take 2,400 [facility] -EPA-Fish 5-02 mg by ity of Oil (FISH 11:28: mouth [place] OIL) 1,200 55 daily. Medical (144-216) Branch mg Cap CoQ10, 2022-0 Yes 200mg Take 200 Univer s Ubiquinol, 5-02 mg by ity of 200 mg 11:28: mouth [place] capsule 55 daily. Medical Branch cholecalcif Yes 1000U Take 1,000 [facility] cory, 5-02 Units by ity of vitamin D3, 11:28: mouth [place] (VITAMIN 55 daily. Medical D3) 25 mcg Branch (1,000 unit) tablet multivit-mi Yes Take by Uni vers n/iron/foli 5-02 mouth. ity of c/lutein 11:28: [place] ([facility] 55 Medical SILVER Branch WOMEN ORAL) busPIRone Yes 10mg Take 10 mg Un [place] 10 mg 5-02 by mouth ity of tablet 11:28: before [place] 55 meals and Medical at Branch bedtime. Pt takes at night estradiol Yes Insert Univer s (ESTRACE 02 into ity of VAGINAL) 11:28: vagina [place] 55 every 72 Medical (seventy-t Branch wo) hours. Pt took med on fri telmisartan Yes 80mg Take 80 mg [facility] (MICARDIS) 5-02 by mouth ity o f 80 mg 11:28: daily. [place] [facility] 55 [facility] Branch Omeprazole Yes 20mg Take 20 mg U nivers 20 mg 5-02 by mouth ity of tablet 11:28: daily. [address] Branch EZETIMIBE Yes 10mg Take 10 mg Un [place] ORAL 5-02 by mouth ity of 11:28: daily. [address] [place]-3-DHA Yes 2400mg Take 2,400 [facility] -EPA-Fish 5-02 mg by ity of Oil (FISH 11:28: mouth [place] OIL) 1,200 55 daily. [facility] (144-216) Branch mg Cap CoQ10, Yes 200mg Take 200 Univer s Ubiquinol, 5-02 mg by ity of 200 mg 11:28: mouth [place] capsule 55 daily. Medical Branch cholecalcif Yes 1000U Take 1,000 [facility] cory, 5-02 Units by ity of vitamin D3, 11:28: mouth [place] (VITAMIN 55 daily. Medical D3) 25 mcg Branch (1,000 unit) tablet multivit-mi 2022-0 Yes Take by Uni vers n/iron/foli 5-02 mouth. ity of c/lutein 11:28: [place] ([facility] 55 [facility] WOMEN ORAL) busPIRone Yes 10mg Take 10 mg Un [place] 10 mg 5-02 by mouth ity of tablet 11:28: before [place] 55 meals and Medical at [place] bedtime. Pt takes at night estradiol Yes Insert Univer s (ESTRACE 5-02 into ity of VAGINAL) 11:28: vagina [place] 55 every 72 Medical (seventy-t [place] wo) hours. Pt took med on mon telmisartan Yes 80mg Take 80 mg [facility] (MICARDIS) 5-02 by mouth ity o f 80 mg 11:28: daily. [address] Branch Omeprazole Yes 20mg Take 20 mg U nivers 20 mg 5-02 by mouth ity of tablet 11:28: daily. [address] Branch EZETIMIBE Yes 10mg Take 10 mg [facility] [place] ORAL 5-02 by mouth ity of 11:28: daily. [address] [place]-3-DHA Yes 2400mg Take 2,400 [facility] -EPA-Fish 5-02 mg by ity of Oil (FISH 11:28: mouth [place] OIL) 1,200 55 daily. [facility] (144-216) Branch mg Cap CoQ10, Yes 200mg Take 200 Univer s Ubiquinol, 5-02 mg by ity of 200 mg 11:28: mouth [place] capsule 55 daily. [facility] Branch cholecalcif Yes 1000U Take 1,000 [facility] cory, 5-02 Units by ity of vitamin D3, 11:28: mouth [place] (VITAMIN 55 daily. Medical D3) 25 mcg Branch (1,000 unit) tablet multivit-mi Yes Take by Uni vers n/iron/foli 5-02 mouth. ity of c/lutein 11:28: [place] ([facility] 55 [facility] WOMEN ORAL) busPIRone Yes 10mg Take 10 mg Un [place] 10 mg 5-02 by mouth ity of tablet 11:28: before [place] 55 meals and Medical at [place] bedtime. Pt takes at night estradiol Yes Insert Univer s (ESTRACE 5-02 into ity of VAGINAL) 11:28: vagina [place] 55 every 72 Medical (seventy-t Branch wo) hours. Pt took med on mon telmisartan Yes 80mg Take 80 mg [facility] (MICARDIS) 5-02 by mouth ity o f 80 mg 11:28: daily. [place] tablet 55 Medical Branch Omeprazole 0 Yes 20mg Take 20 mg U nivers 20 mg 5-02 by mouth ity of tablet 11:28: daily. [place] [address] Medical Branch EZETIMIBE 0 Yes 10mg Take 10 mg Un [place] ORAL 5-02 by mouth ity of 11:28: daily. [place] [address] Medical Branch [place]-3-DHA Yes 2400mg Take 2,400 [facility] -EPA-Fish 5-02 mg by ity of Oil (FISH 11:28: mouth [place] OIL) 1,200 55 daily. [facility] (144-216) Branch mg Cap CoQ10, Yes 200mg Take 200 Univer s Ubiquinol, 5-02 mg by ity of 200 mg 11:28: mouth [place] capsule 55 daily. Medical Branch cholecalcif Yes 1000U Take 1,000 [facility] cory, 5-02 Units by ity of vitamin D3, 11:28: mouth [place] (VITAMIN 55 daily. Medical D3) 25 mcg Branch (1,000 unit) tablet multivit-mi Yes Take by Uni vers n/iron/foli -02 mouth. ity of c/lutein 11:28: [place] ([facility] 55 Medical SILVER Branch WOMEN ORAL) busPIRone Yes 10mg Take 10 mg Un [place] 10 mg 02 by mouth ity of tablet 11:28: before [place] 55 meals and Medical at Branch bedtime. Pt takes at night estradiol Yes Insert Univer s (ESTRACE 5-02 into ity of VAGINAL) 11:28: vagina [place] 55 every 72 Medical (seventy-t Branch wo) hours. Pt took med on mon telmisartan Yes 80mg Take 80 mg [facility] (MICARDIS) -02 by mouth ity o f 80 mg 11:28: daily. [place] tablet 55 Medical Branch Omeprazole Yes 20mg Take 20 mg U nivers 20 mg -02 by mouth ity of tablet 11:28: daily. [address] Branch EZETIMIBE 0 Yes 10mg Take 10 mg Un [place] ORAL 5-02 by mouth ity of 11:28: daily. [address] Branch [place]-3-DHA 0 Yes 2400mg Take 2,400 [facility] -EPA-Fish 5-02 mg by ity of Oil (FISH 11:28: mouth [place] OIL) 1,200 55 daily. Medical (144-216) Branch mg Cap CoQ10, 0 Yes 200mg Take 200 Univer s Ubiquinol, 5-02 mg by ity of 200 mg 11:28: mouth [place] capsule 55 daily. [facility] Branch cholecalcif Yes 1000U Take 1,000 [facility] cory, 5-02 Units by ity of vitamin D3, 11:28: mouth [place] (VITAMIN 55 daily. Medical D3) 25 mcg [place] (1,000 unit) tablet multivit-mi Yes Take by Uni vers n/iron/foli 5-02 mouth. ity of c/lutein 11:28: [place] ([facility] 55 Medical SILVER Branch WOMEN ORAL) busPIRone Yes 10mg Take 10 mg Un [place] 10 mg 5-02 by mouth ity of tablet 11:28: before [place] [address] meals and Medical at [place] bedtime. Pt takes at night estradiol 0 Yes Insert Univer s (ESTRACE 02 into ity of VAGINAL) 11:28: vagina [place] [address] every 72 Medical (seventy-t Branch wo) hours. Pt took med on mon telmisartan Yes 80mg Take 80 mg [facility] (MICARDIS) 5-02 by mouth ity o f 80 mg 11:28: daily. [place] tablet [address] [place] [address] Branch Omeprazole Yes 20mg Take 20 mg U nivers 20 mg 5-02 by mouth ity of tablet 11:28: daily. [address] EZETIMIBE 0 Yes 10mg Take 10 mg [facility] [place] ORAL 5-02 by mouth ity of 11:28: daily. [address] [place]3-DHA 0 Yes 2400mg Take 2,400 [facility] -EPA-Fish 5-02 mg by ity of Oil (FISH 11:28: mouth [place] OIL) 1,200 55 daily. Medical (144-216) Branch mg Cap CoQ10, Yes 200mg Take 200 Univer s Ubiquinol, 5-02 mg by ity of 200 mg 11:28: mouth [place] capsule 55 daily. Medical Branch cholecalcif Yes 1000U Take 1,000 [facility] cory, 5-02 Units by ity of vitamin D3, 11:28: mouth [place] (VITAMIN 55 daily. Medical D3) 25 mcg Branch (1,000 unit) tablet multivit-mi Yes Take by Uni vers n/iron/foli 5-02 mouth. ity of c/lutein 11:28: [place] ([facility] 55 Medical SILVER Branch WOMEN ORAL) busPIRone Yes 10mg Take 10 mg Un [place] 10 mg 5-02 by mouth ity of tablet 11:28: before [place] 55 meals and Medical at Branch bedtime. Pt takes at night estradiol 0 Yes Insert Univer s (ESTRACE 12-17 into ity of VAGINAL) 11:28: vagina [place] 55 every 72 Medical (seventy-t Branch wo) hours. Pt took med on mon telmisartan Yes 80mg Take 80 mg [facility] (MICARDIS) 5-02 by mouth ity o f 80 mg 11:28: daily. [place] [address] Medical Branch Omeprazole 0 Yes 20mg Take 20 mg U nivers 20 mg -02 by mouth ity of tablet 11:28: daily. [place] [address] Medical Branch EZETIMIBE 0 Yes 10mg Take 10 mg Un [place] ORAL 5-02 by mouth ity of 11:28: daily. [place] [address] Medical Branch [place]-3-DHA 0 Yes 2400mg Take 2,400 [facility] -EPA-Fish 5-02 mg by ity of Oil (FISH 11:28: mouth [place] OIL) 1,200 55 daily. Medical (144-216) Branch mg Cap CoQ10, 0 Yes 200mg Take 200 Univer s Ubiquinol, 5-02 mg by ity of 200 mg 11:28: mouth [place] capsule 55 daily. Medical Branch cholecalcif Yes 1000U Take 1,000 [facility] cory, 5-02 Units by ity of vitamin D3, 11:28: mouth [place] (VITAMIN 55 daily. Medical D3) 25 mcg Branch (1,000 unit) tablet multivit-mi Yes Take by Uni vers n/iron/foli 5-02 mouth. ity of c/lutein 11:28: [place] ([facility] 55 Medical [facility] WOMEN ORAL) busPIRone Yes 10mg Take 10 mg Un [place] 10 mg 5-02 by mouth ity of tablet 11:28: before [place] 55 meals and Medical at [place] bedtime. Pt takes at night estradiol Yes Insert Univer s (ESTRACE 5-02 into ity of VAGINAL) 11:28: vagina [place] 55 every 72 Medical (seventy-t Branch wo) hours. Pt took med on mon telmisartan Yes 80mg Take 80 mg [facility] (MICARDIS) 5-02 by mouth ity o f 80 mg 11:28: daily. [address] Branch Omeprazole Yes 20mg Take 20 mg U nivers 20 mg 5-02 by mouth ity of tablet 11:28: daily. [address] Branch EZETIMIBE Yes 10mg Take 10 mg Un [place] ORAL 5-02 by mouth ity of 11:28: daily. [address] Branch [place]-3-DHA Yes 2400mg Take 2,400 [facility] -EPA-Fish 5-02 mg by ity of Oil (FISH 11:28: mouth [place] OIL) 1,200 55 daily. Medical (144-216) Branch mg Cap CoQ10, Yes 200mg Take 200 Univer s Ubiquinol, 5-02 mg by ity of 200 mg 11:28: mouth [place] capsule 55 daily. Medical Branch cholecalcif Yes 1000U Take 1,000 [facility] cory, 5-02 Units by ity of vitamin D3, 11:28: mouth [place] (VITAMIN 55 daily. Medical D3) 25 mcg Branch (1,000 unit) tablet multivit-mi Yes Take by Uni vers n/iron/foli 5-02 mouth. ity of c/lutein 11:28: [place] ([facility] 55 Medical [facility] WOMEN ORAL) busPIRone Yes 10mg Take 10 mg Un [place] 10 mg 5-02 by mouth ity of tablet 11:28: before [place] 55 meals and Medical at [place] bedtime. Pt takes at night estradiol Yes Insert Univer s (ESTRACE 5-02 into ity of VAGINAL) 11:28: vagina [place] 55 every 72 Medical (seventy-t Branch wo) hours. Pt took med on mon telmisartan Yes 80mg Take 80 mg [facility] (MICARDIS) 5-02 by mouth ity o f 80 mg 11:28: daily. [place] tablet 55 [facility] Branch Omeprazole 0 Yes 20mg Take 20 mg U nivers 20 mg 5-02 by mouth ity of tablet 11:28: daily. [address] Branch EZETIMIBE 0 Yes 10mg Take 10 mg Un [place] ORAL 5-02 by mouth ity of 11:28: daily. [address] Branch [place]-3-DHA Yes 2400mg Take 2,400 [facility] -EPA-Fish 5-02 mg by ity of Oil (FISH 11:28: mouth [place] OIL) 1,200 55 daily. [facility] (144-216) Branch mg Cap CoQ10, Yes 200mg Take 200 Univer s Ubiquinol, 5-02 mg by ity of 200 mg 11:28: mouth [place] capsule 55 daily. [facility] Branch cholecalcif Yes 1000U Take 1,000 [facility] cory, 5-02 Units by ity of vitamin D3, 11:28: mouth [place] (VITAMIN 55 daily. [facility] D3) 25 mcg [place] (1,000 unit) tablet multivit-mi Yes Take by Uni vers n/iron/foli 5-02 mouth. ity of c/lutein 11:28: [place] ([facility] 55 Medical SILVER Branch WOMEN ORAL) busPIRone Yes 10mg Take 10 mg Un [place] 10 mg -02 by mouth ity of tablet 11:28: before [place] 55 meals and Medical at Branch bedtime. Pt takes at night estradiol Yes Insert Univer s (ESTRACE 5-02 into ity of VAGINAL) 11:28: vagina [place] 55 every 72 Medical (seventy-t Branch wo) hours. Pt took med on mon telmisartan Yes 80mg Take 80 mg [facility] (MICARDIS) 5-02 by mouth ity o f 80 mg 11:28: daily. [place] tablet 55 [facility] Branch Omeprazole Yes 20mg Take 20 mg U nivers 20 mg 5-02 by mouth ity of tablet 11:28: daily. [place] [address] Medical Branch EZETIMIBE 0 Yes 10mg Take 10 mg Un [place] ORAL 5-02 by mouth ity of 11:28: daily. [place] [address] Medical Branch [place]-3-DHA 0 Yes 2400mg Take 2,400 [facility] -EPA-Fish 5-02 mg by ity of Oil (FISH 11:28: mouth [place] OIL) 1,200 55 daily. Medical (144-216) Branch mg Cap CoQ10, 0 Yes 200mg Take 200 Univer s Ubiquinol, 5-02 mg by ity of 200 mg 11:28: mouth [place] capsule 55 daily. Medical Branch cholecalcif Yes 1000U Take 1,000 [facility] cory, 5-02 Units by ity of vitamin D3, 11:28: mouth [place] (VITAMIN 55 daily. Medical D3) 25 mcg [place] (1,000 unit) tablet multivit-mi Yes Take by Uni vers n/iron/foli 5-02 mouth. ity of c/lutein 11:28: [place] ([facility] 55 Medical SILVER Branch WOMEN ORAL) busPIRone Yes 10mg Take 10 mg Un [place] 10 mg 5-02 by mouth ity of tablet 11:28: before [place] [address] meals and Medical at Branch bedtime. Pt takes at night estradiol Yes Insert Univer s (ESTRACE 02 into ity of VAGINAL) 11:28: vagina [place] 55 every 72 Medical (seventy-t Branch wo) hours. Pt took med on mon telmisartan Yes 80mg Take 80 mg [facility] (MICARDIS) 5-02 by mouth ity o f 80 mg 11:28: daily. [place] tablet Medical Branch Omeprazole 0 Yes 20mg Take 20 mg U nivers 20 mg 5-02 by mouth ity of tablet 11:28: daily. [place] [address] Medical Branch EZETIMIBE 0 Yes 10mg Take 10 mg Un [place] ORAL 5-02 by mouth ity of 11:28: daily. [address] Branch [place]-3-DHA 0 Yes 2400mg Take 2,400 [facility] -EPA-Fish 5-02 mg by ity of Oil (FISH 11:28: mouth [place] OIL) 1,200 55 daily. Medical (144-216) Branch mg Cap CoQ10, Yes 200mg Take 200 Univer s Ubiquinol, 5-02 mg by ity of 200 mg 11:28: mouth [place] capsule 55 daily. Medical Branch cholecalcif Yes 1000U Take 1,000 [facility] cory, 5-02 Units by ity of vitamin D3, 11:28: mouth [place] (VITAMIN 55 daily. Medical D3) 25 mcg Branch (1,000 unit) tablet multivit-mi Yes Take by Uni vers n/iron/foli 5-02 mouth. ity of c/lutein 11:28: [place] ([facility] 55 Medical SILVER Branch WOMEN ORAL) busPIRone Yes 10mg Take 10 mg Un [place] 10 mg 5-02 by mouth ity of tablet 11:28: before [place] 55 meals and Medical at Branch bedtime. Pt takes at night estradiol 0 Yes Insert Univer s (ESTRACE 12-17 into ity of VAGINAL) 11:28: vagina [place] 55 every 72 Medical (seventy-t Branch wo) hours. Pt took med on fri telmisartan Yes 80mg Take 80 mg [facility] (MICARDIS) 5-02 by mouth ity o f 80 mg 11:28: daily. [place] [address] Medical Branch Omeprazole 0 Yes 20mg Take 20 mg U nivers 20 mg 5-02 by mouth ity of tablet 11:28: daily. [place] [address] Medical Branch EZETIMIBE 0 Yes 10mg Take 10 mg Un [place] ORAL 5-02 by mouth ity of 11:28: daily. [place] [address] Medical Branch [place]-3-DHA 0 Yes 2400mg Take 2,400 [facility] -EPA-Fish 5-02 mg by ity of Oil (FISH 11:28: mouth [place] OIL) 1,200 55 daily. Medical (144-216) Branch mg Cap CoQ10, 0 Yes 200mg Take 200 Univer s Ubiquinol, 5-02 mg by ity of 200 mg 11:28: mouth [place] capsule 55 daily. Medical Branch cholecalcif 0 Yes 1000U Take 1,000 [facility] cory, 5-02 Units by ity of vitamin D3, 11:28: mouth [place] (VITAMIN 55 daily. Medical D3) 25 mcg Branch (1,000 unit) tablet multivit-mi Yes Take by Uni vers n/iron/foli 5-02 mouth. ity of c/lutein 11:28: [place] ([facility] 55 Medical [facility] WOMEN ORAL) busPIRone Yes 10mg Take 10 mg Un [place] 10 mg 5-02 by mouth ity of tablet 11:28: before [place] 55 meals and Medical at [place] bedtime. Pt takes at night estradiol Yes Insert Univer s (ESTRACE 5-02 into ity of VAGINAL) 11:28: vagina [place] 55 every 72 Medical (seventy-t Branch wo) hours. Pt took med on mon telmisartan Yes 80mg Take 80 mg [facility] (MICARDIS) 5-02 by mouth ity o f 80 mg 11:28: daily. [address] Branch Omeprazole Yes 20mg Take 20 mg U nivers 20 mg 5-02 by mouth ity of tablet 11:28: daily. [address] Branch EZETIMIBE Yes 10mg Take 10 mg Un [place] ORAL -02 by mouth ity of 11:28: daily. [address] [place]-3-DHA Yes 2400mg Take 2,400 [facility] -EPA-Fish 5-02 mg by ity of Oil (FISH 11:28: mouth [place] OIL) 1,200 55 daily. [facility] (144-216) Branch mg Cap CoQ10, Yes 200mg Take 200 Univer s Ubiquinol, 5-02 mg by ity of 200 mg 11:28: mouth [place] capsule 55 daily. [facility] Branch cholecalcif Yes 1000U Take 1,000 [facility] cory, 5-02 Units by ity of vitamin D3, 11:28: mouth [place] (VITAMIN 55 daily. Medical D3) 25 mcg Branch (1,000 unit) tablet multivit-mi Yes Take by Uni vers n/iron/foli 5-02 mouth. ity of c/lutein 11:28: [place] ([facility] 55 [facility] WOMEN ORAL) busPIRone Yes 10mg Take 10 mg Un [place] 10 mg 5-02 by mouth ity of tablet 11:28: before [place] 55 meals and Medical at [place] bedtime. Pt takes at night estradiol Yes Insert Univer s (ESTRACE 5-02 into ity of VAGINAL) 11:28: vagina [place] 55 every 72 Medical (seventy-t Branch wo) hours. Pt took med on mon telmisartan Yes 80mg Take 80 mg [facility] (MICARDIS) 5-02 by mouth ity o f 80 mg 11:28: daily. [place] tablet 55 Medical Branch Omeprazole Yes 20mg Take 20 mg U nivers 20 mg 5-02 by mouth ity of tablet 11:28: daily. [place] 55 Medical Branch EZETIMIBE 0 Yes 10mg Take 10 mg Un [place] ORAL 5-02 by mouth ity of 11:28: daily. [place] [address] Medical Branch [place]-3-DHA Yes 2400mg Take 2,400 [facility] -EPA-Fish 5-02 mg by ity of Oil (FISH 11:28: mouth [place] OIL) 1,200 55 daily. Medical (144-216) Branch mg Cap CoQ10, Yes 200mg Take 200 Univer s Ubiquinol, 5-02 mg by ity of 200 mg 11:28: mouth [place] capsule 55 daily. Medical Branch cholecalcif Yes 1000U Take 1,000 [facility] cory, 5-02 Units by ity of vitamin D3, 11:28: mouth [place] (VITAMIN 55 daily. [facility] D3) 25 mcg Branch (1,000 unit) tablet multivit-mi Yes Take by Uni vers n/iron/foli 5-02 mouth. ity of c/lutein 11:28: [place] ([facility] 55 Medical SILVER Branch WOMEN ORAL) busPIRone Yes 10mg Take 10 mg Un [place] 10 mg -02 by mouth ity of tablet 11:28: before [place] 55 meals and Medical at Branch bedtime. Pt takes at night estradiol Yes Insert Univer s (ESTRACE 5-02 into ity of VAGINAL) 11:28: vagina [place] 55 every 72 Medical (seventy-t Branch wo) hours. Pt took med on mon telmisartan Yes 80mg Take 80 mg [facility] (MICARDIS) 5-02 by mouth ity o f 80 mg 11:28: daily. [place] tablet 55 Medical Branch Omeprazole Yes 20mg Take 20 mg U nivers 20 mg 5-02 by mouth ity of tablet 11:28: daily. [place] [address] Medical Branch EZETIMIBE 0 Yes 10mg Take 10 mg Un [place] ORAL 5-02 by mouth ity of 11:28: daily. [place] [address] Medical Branch [place]-3-DHA 0 Yes 2400mg Take 2,400 [facility] -EPA-Fish 5-02 mg by ity of Oil (FISH 11:28: mouth [place] OIL) 1,200 55 daily. Medical (144-216) Branch mg Cap CoQ10, 0 Yes 200mg Take 200 Univer s Ubiquinol, 5-02 mg by ity of 200 mg 11:28: mouth [place] capsule 55 daily. Medical Branch cholecalcif Yes 1000U Take 1,000 [facility] cory, 5-02 Units by ity of vitamin D3, 11:28: mouth [place] (VITAMIN 55 daily. Medical D3) 25 mcg [place] (1,000 unit) tablet multivit-mi Yes Take by Uni vers n/iron/foli 5-02 mouth. ity of c/lutein 11:28: [place] ([facility] 55 Medical SILVER Branch WOMEN ORAL) busPIRone Yes 10mg Take 10 mg Un [place] 10 mg 5-02 by mouth ity of tablet 11:28: before [place] [address] meals and Medical at Branch bedtime. Pt takes at night estradiol Yes Insert Univer s (ESTRACE 02 into ity of VAGINAL) 11:28: vagina [place] 55 every 72 Medical (seventy-t Branch wo) hours. Pt took med on mon telmisartan Yes 80mg Take 80 mg [facility] (MICARDIS) 5-02 by mouth ity o f 80 mg 11:28: daily. [place] [address] Medical Branch Omeprazole 0 Yes 20mg Take 20 mg U nivers 20 mg 5-02 by mouth ity of tablet 11:28: daily. [place] [address] Medical Branch EZETIMIBE 0 Yes 10mg Take 10 mg Un [place] ORAL 5-02 by mouth ity of 11:28: daily. [place] [address] Medical Branch [place]-3-DHA 0 Yes 2400mg Take 2,400 [facility] -EPA-Fish 5-02 mg by ity of Oil (FISH 11:28: mouth [place] OIL) 1,200 55 daily. Medical (144-216) Branch mg Cap CoQ10, 0 Yes 200mg Take 200 Univer s Ubiquinol, 5-02 mg by ity of 200 mg 11:28: mouth [place] capsule 55 daily. Medical Branch cholecalcif 0 Yes 1000U Take 1,000 [facility] cory, 5-02 Units by ity of vitamin D3, 11:28: mouth [place] (VITAMIN 55 daily. Medical D3) 25 mcg Branch (1,000 unit) tablet multivit-mi Yes Take by Uni vers n/iron/foli 5-02 mouth. ity of c/lutein 11:28: [place] ([facility] 55 Medical SILVER Branch WOMEN ORAL) busPIRone 0 Yes 10mg Take 10 mg Un [place] 10 mg 5-02 by mouth ity of tablet 11:28: before [place] 55 meals and Medical at Branch bedtime. Pt takes at night estradiol 0 Yes Insert Univer s (ESTRACE 02 into ity of VAGINAL) 11:28: vagina [place] 55 every 72 Medical (seventy-t Branch wo) hours. Pt took med on mon telmisartan Yes 80mg Take 80 mg [facility] (MICARDIS) 5-02 by mouth ity o f 80 mg 11:28: daily. [place] [facility] 55 Medical Branch Omeprazole 0 Yes 20mg Take 20 mg U nivers 20 mg 5-02 by mouth ity of tablet 11:28: daily. [place] [address] Medical Branch EZETIMIBE 0 Yes 10mg Take 10 mg Un [place] ORAL 5-02 by mouth ity of 11:28: daily. [place] [address] Medical Branch [place]-3-DHA 0 Yes 2400mg Take 2,400 [facility] -EPA-Fish 5-02 mg by ity of Oil (FISH 11:28: mouth [place] OIL) 1,200 55 daily. Medical (144-216) Branch mg Cap CoQ10, 0 Yes 200mg Take 200 Univer s Ubiquinol, 5-02 mg by ity of 200 mg 11:28: mouth [place] capsule 55 daily. Medical Branch cholecalcif 0 Yes 1000U Take 1,000 [facility] cory, 5-02 Units by ity of vitamin D3, 11:28: mouth [place] (VITAMIN 55 daily. Medical D3) 25 mcg Branch (1,000 unit) tablet multivit-mi Yes Take by Uni vers n/iron/foli 5-02 mouth. ity of c/lutein 11:28: [place] ([facility] 55 Medical [place] Branch WOMEN ORAL) busPIRone 0 Yes 10mg Take 10 mg Un [place] 10 mg 5-02 by mouth ity of tablet 11:28: before [place] 55 meals and Medical at [place] bedtime. Pt takes at night estradiol 2021-0 Yes Insert Univer s (ESTRACE 5-02 into ity of VAGINAL) 11:28: vagina [place] 55 every 72 Medical (seventy-t Branch wo) hours. Pt took med on mon telmisartan 0 Yes 80mg Take 80 mg [facility] (MICARDIS) 5-02 by mouth ity o f 80 mg 11:28: daily. [address] Omeprazole 0 Yes 20mg Take 20 mg U nivers 20 mg 5-02 by mouth ity of tablet 11:28: daily. [address] EZETIMIBE 0 Yes 10mg Take 10 mg [place] ORAL 5-02 by mouth ity of 11:28: daily. [address] cholecalcif Yes 1000U Take 1,000 Univers cory, 5-02 Units by ity of vitamin D3, 11:28: mouth [place] (VITAMIN 55 daily. Medical D3) 25 mcg Branch (1,000 unit) tablet busPIRone Yes 10mg Take 10 mg [place] 10 mg 5-02 by mouth ity of tablet 11:28: before [place] [address] meals and Medical at [place] bedtime. Pt takes at night estradiol 0 Yes Insert Univer s (ESTRACE 5-02 into ity of VAGINAL) 11:28: vagina [place] 55 every 72 Medical (seventy-t Branch wo) hours. Pt took med on mon telmisartan 0 Yes 80mg Take 80 mg [facility] (MICARDIS) 5-02 by mouth ity o f 80 mg 11:28: daily. [address] Omeprazole 0 Yes 20mg Take 20 mg U nivers 20 mg 5-02 by mouth ity of tablet 11:28: daily. [address] EZETIMIBE 0 Yes 10mg Take 10 mg Un [place] ORAL 5-02 by mouth ity of 11:28: daily. [address] Branch cholecalcif 2021-0 Yes 1000U Take 1,000 [facility] cory, 5-02 Units by ity of vitamin D3, 11:28: mouth [place] (VITAMIN 55 daily. Medical D3) 25 mcg Branch (1,000 unit) tablet busPIRone 2021-0 Yes 10mg Take 10 mg Un [place] 10 mg 5-02 by mouth ity of tablet 11:28: before [place] 55 meals and Medical at [place] bedtime. Pt takes at night estradiol 2021-0 Yes Insert Univer s (ESTRACE 5-02 into ity of VAGINAL) 11:28: vagina [place] 55 every 72 Medical (seventy-t Branch wo) hours. Pt took med on mon telmisartan 2021-0 Yes 80mg Take 80 mg [facility] (MICARDIS) 5-02 by mouth ity o f 80 mg 11:28: daily. [address] Omeprazole 2021-0 Yes 20mg Take 20 mg U nivers 20 mg 5-02 by mouth ity of tablet 11:28: daily. [address] EZETIMIBE 2021-0 Yes 10mg Take 10 mg [place] ORAL 5-02 by mouth ity of 11:28: daily. [address] cholecalcif 2021-0 Yes 1000U Take 1,000 [facility] cory, 5-02 Units by ity of vitamin D3, 11:28: mouth [place] (VITAMIN 55 daily. Medical D3) 25 mcg Branch (1,000 unit) tablet busPIRone 2021-0 Yes 10mg Take 10 mg Un [place] 10 mg 5-02 by mouth ity of tablet 11:28: before [place] 55 meals and Medical at [place] bedtime. Pt takes at night estradiol 2021-0 Yes Insert Univer s (ESTRACE 5-02 into ity of VAGINAL) 11:28: vagina [place] 55 every 72 Medical ([facility] Branch wo) hours. Pt took med on mon telmisartan 2021-0 Yes 80mg Take 80 mg [facility] (MICARDIS) 5-02 by mouth ity o f 80 mg 11:28: daily. [address] Omeprazole 2021-0 Yes 20mg Take 20 mg U nivers 20 mg 5-02 by mouth ity of tablet 11:28: daily. [address] EZETIMIBE 0 Yes 10mg Take 10 mg Un [place] ORAL 5-02 by mouth ity of 11:28: daily. [address] cholecalcif 0 Yes 1000U Take 1,000 [facility] cory, 5-02 Units by ity of vitamin D3, 11:28: mouth [place] (VITAMIN 55 daily. Medical D3) 25 mcg Branch (1,000 unit) tablet busPIRone 0 Yes 10mg Take 10 mg Un [place] 10 mg 5-02 by mouth ity of tablet 11:28: before [place] 55 meals and Medical at [place] bedtime. Pt takes at night estradiol 2021-0 Yes Insert Univer s (ESTRACE 5-02 into ity of VAGINAL) 11:28: vagina [place] 55 every 72 Medical ([facility] wo) hours. Pt took med on mon telmisartan 2021-0 Yes 80mg Take 80 mg [facility] (MICARDIS) 5-02 by mouth ity o f 80 mg 11:28: daily. [address] Omeprazole 0 Yes 20mg Take 20 mg U nivers 20 mg 5-02 by mouth ity of tablet 11:28: daily. [address] EZETIMIBE 0 Yes 10mg Take 10 mg Un [place] ORAL 5-02 by mouth ity of 11:28: daily. [address] cholecalcif 0 Yes 1000U Take 1,000 [facility] cory, 5-02 Units by ity of vitamin D3, 11:28: mouth [place] (VITAMIN 55 daily. Medical D3) 25 mcg Branch (1,000 unit) tablet busPIRone 0 Yes 10mg Take 10 mg Un [place] 10 mg 5-02 by mouth ity of tablet 11:28: before [place] 55 meals and Medical at [place] bedtime. Pt takes at night estradiol 2021-0 Yes Insert Univer s (ESTRACE 5-02 into ity of VAGINAL) 11:28: vagina [place] 55 [facility] [place] [facility]. Pt took med on mon telmisartan 2021-0 Yes 80mg Take 80 mg [facility] (MICARDIS) 5-02 by mouth ity o f 80 mg 11:28: daily. [address] Omeprazole 2021-0 Yes 20mg Take 20 mg U nivers 20 mg 5-02 by mouth ity of tablet 11:28: daily. [place] [id number] Medical [place] EZETIMIBE 0 Yes 10mg Take 10 mg Un [place] ORAL 5-02 by mouth ity of 11:28: daily. [address] cholecalcif 0 Yes 1000U Take 1,000 [facility] cory, 5-02 Units by ity of vitamin D3, 11:28: mouth [place] (VITAMIN 55 daily. Medical D3) 25 mcg Branch (1,000 unit) tablet busPIRone 0 Yes 10mg Take 10 mg Un [place] 10 mg 5-02 by mouth ity of tablet 11:28: before [place] 55 meals and Medical at Branch bedtime. Pt takes at night estradiol 2021-0 Yes Insert Univer s (ESTRACE 5-02 into ity of VAGINAL) 11:28: vagina [place] 55 every 72 Medical ([facility] Branch wo) hours. Pt took med on mon telmisartan 2021-0 Yes 80mg Take 80 mg [facility] (MICARDIS) 5-02 by mouth ity o f 80 mg 11:28: daily. [address] Omeprazole 0 Yes 20mg Take 20 mg U nivers 20 mg 5-02 by mouth ity of tablet 11:28: daily. [address] EZETIMIBE 0 Yes 10mg Take 10 mg Un [place] ORAL 5-02 by mouth ity of 11:28: daily. [address] cholecalcif 0 Yes 1000U Take 1,000 [facility] cory, 5-02 Units by ity of vitamin D3, 11:28: mouth [place] (VITAMIN 55 daily. Medical D3) 25 mcg Branch (1,000 unit) tablet busPIRone 0 Yes 10mg Take 10 mg Un [place] 10 mg 5-02 by mouth ity of tablet 11:28: before [place] 55 meals and Medical at [place] bedtime. Pt takes at night estradiol 2021-0 Yes Insert Univer s (ESTRACE 5-02 into ity of VAGINAL) 11:28: vagina [place] 55 every 72 Medical ([facility] Branch wo) hours. Pt took med on mon telmisartan 2021-0 Yes 80mg Take 80 mg [facility] (MICARDIS) 5-02 by mouth ity o f 80 mg 11:28: daily. [place] tablet 55 Medical Branch Dose 2022-0 No Unknown 4-04 00:00: 00 Dose 2022-0 No Unknown 4-04 00:00: 00 Dose 2022-0 No Unknown 4-04 00:00: 00 Dose 2022-0 No Unknown 4-04 00:00: 00 Dose 2022-0 No Unknown 4-04 00:00: 00 Dose 2022-0 No Unknown 4-04 00:00: 00 Dose 2022-0 No Unknown 3-31 00:00: 00 Dose 2022-0 No Unknown 3-31 00:00: 00 Dose 2022-0 No Unknown 3-31 00:00: 00 Dose 2022-0 No Unknown 3-31 00:00: 00 Dose 2022-0 No Unknown 3-31 00:00: 00 Dose 2022-0 No Unknown 3-31 00:00: 00 Dose 2022-0 No Unknown 3-31 00:00: 00 Dose 2022-0 No Unknown 3-31 00:00: 00 Dose 2022-0 No Unknown 3-31 00:00: 00 ezetimibe 2022-0 No 1mg 10 mg 3-16 tablet 00:00: 00 rosuvastati 2022-0 No 1mg n 10 mg 3-16 tablet 00:00: 00 ezetimibe 2022-0 No 1mg 10 mg 3-16 tablet 00:00: 00 rosuvastati 2022-0 No 1mg n 10 mg 3-16 tablet 00:00: 00 ezetimibe 2022-0 No 1mg 10 mg 3-16 tablet 00:00: 00 rosuvastati 2022-0 No 1mg n 10 mg 3-16 tablet 00:00: 00 buspirone 2022-0 No 1mg 10 mg 3-15 tablet 00:00: 00 buspirone 2022-0 No 1mg 10 mg 3-15 tablet 00:00: 00 buspirone 2022-0 No 1mg 10 mg 3-15 tablet 00:00: 00 Dose 2022-0 No Unknown 3-09 00:00: 00 Dose 2022-0 No Unknown 3-09 00:00: 00 Dose 2022-0 No Unknown 3-09 00:00: 00 Dose 2022-0 No Unknown 3-09 00:00: 00 Dose 2022-0 No Unknown 3-09 00:00: 00 Dose 2022-0 No Unknown 3-09 00:00: 00 Dose 2022-0 No Unknown 3-09 00:00: 00 Dose 2022-0 No Unknown 3-09 00:00: 00 Dose 2022-0 No Unknown 3-09 00:00: 00 Dose 2022-0 No Unknown 3-09 00:00: 00 Dose 2022-0 No Unknown 3-09 00:00: 00 Dose 2022-0 No Unknown 3-09 00:00: 00 Dose 2022-0 No Unknown 3-09 00:00: 00 Dose 2022-0 No Unknown 3-09 00:00: 00 Dose 2022-0 No Unknown 3-09 00:00: 00 Dose 2022-0 No Unknown 3-09 00:00: 00 Dose 2022-0 No Unknown 3-09 00:00: 00 Dose 2022-0 No Unknown 3-09 00:00: 00 Dose 2022-0 No Unknown 3-09 00:00: 00 Dose 2022-0 No Unknown 3-09 00:00: 00 Dose 2022-0 No Unknown 3-09 00:00: 00 Dose 2022-0 No Unknown 3-09 00:00: 00 Dose 2022-0 No Unknown 3-09 00:00: 00 Dose 2022-0 No Unknown 3-09 00:00: 00 Dose 2022-0 No Unknown 3-09 00:00: 00 Dose 2022-0 No Unknown 3-09 00:00: 00 Dose 2022-0 No Unknown 3-09 00:00: 00 Dose 2022-0 No Unknown 3-09 00:00: 00 Dose 2022-0 No Unknown 3-09 00:00: 00 Dose 2022-0 No Unknown 3-09 00:00: 00 Dose 2022-0 No Unknown 3-09 00:00: 00 Dose 2022-0 No Unknown 3-09 00:00: 00 Dose 2022-0 No Unknown 3-09 00:00: 00 Dose 2022-0 No Unknown 3-09 00:00: 00 Dose 2022-0 No Unknown 3-09 00:00: 00 Dose 2022-0 No Unknown 3-09 00:00: 00 Dose 2022-0 No Unknown 3-09 00:00: 00 Dose 2022-0 No Unknown 3-09 00:00: 00 Dose 2022-0 No Unknown 3-09 00:00: 00 Dose 2022-0 No Unknown 3-09 00:00: 00 Dose 2022-0 No Unknown 3-09 00:00: 00 Dose 2022-0 No Unknown 3-09 00:00: 00 Dose 2022-0 No Unknown 3-09 00:00: 00 Dose 2022-0 No Unknown 3-09 00:00: 00 Dose 2022-0 No Unknown 3-09 00:00: 00 Dose 2022-0 No Unknown 3-09 00:00: 00 Dose 2022-0 No Unknown 3-09 00:00: 00 Dose 2022-0 No Unknown 3-09 00:00: 00 Dose 2022-0 No Unknown 3-09 00:00: 00 Dose 2022-0 No Unknown 3-09 00:00: 00 Dose 2022-0 No Unknown 3-09 00:00: 00 Dose 2022-0 No Unknown 3-09 00:00: 00 Dose 2022-0 No Unknown 3-09 00:00: 00 Dose 2022-0 No Unknown 3-09 00:00: 00 Dose 2022-0 No Unknown 3-09 00:00: 00 Dose 2022-0 No Unknown 3-09 00:00: 00 Dose 2022-0 No Unknown 3-09 00:00: 00 Dose 2022-0 No Unknown 3-09 00:00: 00 Dose 2022-0 No Unknown 3-09 00:00: 00 Dose 2022-0 No Unknown 3-09 00:00: 00 Dose 2022-0 No Unknown 3-09 00:00: 00 Dose 2022-0 No Unknown 3-09 00:00: 00 Dose 2022-0 No Unknown 3-09 00:00: 00 Dose 2022-0 No Unknown 3-09 00:00: 00 Dose 2022-0 No Unknown 3-09 00:00: 00 Dose 2022-0 No Unknown 3-09 00:00: 00 Dose 2022-0 No Unknown 3-09 00:00: 00 Dose 2022-0 No Unknown 3-09 00:00: 00 Dose 2022-0 No Unknown 3-09 00:00: 00 Dose 2022-0 No Unknown 3-09 00:00: 00 Dose 2022-0 No Unknown 3-09 00:00: 00 Dose 2022-0 No Unknown 3-09 00:00: 00 Dose 2022-0 No Unknown 3-09 00:00: 00 Dose 2022-0 No Unknown 3-09 00:00: 00 Dose 2022-0 No Unknown 3-09 00:00: 00 Dose 2022-0 No Unknown 3-09 00:00: 00 Dose 2022-0 No Unknown 3-09 00:00: 00 Dose 2022-0 No Unknown 3-09 00:00: 00 Dose 2022-0 No Unknown 3-09 00:00: 00 Dose 2022-0 No Unknown 3-09 00:00: 00 Dose 2022-0 No Unknown 3-09 00:00: 00 Dose 2022-0 No Unknown 3-09 00:00: 00 Dose 2022-0 No Unknown 3-09 00:00: 00 Dose 2022-0 No Unknown 3-09 00:00: 00 Dose 2022-0 No Unknown 3-09 00:00: 00 Dose 2022-0 No Unknown 3-09 00:00: 00 Dose 2022-0 No Unknown 3-09 00:00: 00 Dose 2022-0 No Unknown 3-09 00:00: 00 Dose 2022-0 No Unknown 3-09 00:00: 00 Dose 2022-0 No Unknown 3-09 00:00: 00 Dose 2022-0 No Unknown 3-09 00:00: 00 Dose 2022-0 No Unknown 3-09 00:00: 00 Dose 2022-0 No Unknown 3-09 00:00: 00 Dose 2022-0 No Unknown 3-09 00:00: 00 Dose 2022-0 No Unknown 3-09 00:00: 00 Dose 2022-0 No Unknown 3-09 00:00: 00 Dose 2022-0 No Unknown 3-09 00:00: 00 Dose 2022-0 No Unknown 3-09 00:00: 00 Dose 2022-0 No Unknown 3-09 00:00: 00 Dose 2022-0 No Unknown 3-09 00:00: 00 Dose 2022-0 No Unknown 3-09 00:00: 00 Dose 2022-0 No Unknown 3-09 00:00: 00 Dose 2022-0 No Unknown 3-09 00:00: 00 Dose 2022-0 No Unknown 3-09 00:00: 00 Dose 2022-0 No Unknown 3-09 00:00: 00 Dose 2022-0 No Unknown 3-09 00:00: 00 Dose 2022-0 No Unknown 3-09 00:00: 00 Dose 2022-0 No Unknown 3-09 00:00: 00 Dose 2022-0 No Unknown 3-09 00:00: 00 Dose 2022-0 No Unknown 3-09 00:00: 00 Dose 2022-0 No Unknown 3-09 00:00: 00 Dose 2022-0 No Unknown 3-09 00:00: 00 Dose 2022-0 No Unknown 3-09 00:00: 00 Dose 2022-0 No Unknown 3-09 00:00: 00 Dose 2022-0 No Unknown 3-09 00:00: 00 Dose 2022-0 No Unknown 3-09 00:00: 00 Dose 2022-0 No Unknown 3-09 00:00: 00 Dose 2022-0 No Unknown 3-09 00:00: 00 Dose 2022-0 No Unknown 3-09 00:00: 00 Dose 2022-0 No Unknown 3-09 00:00: 00 Dose 2022-0 No Unknown 3-09 00:00: 00 Dose 2022-0 No Unknown 3-09 00:00: 00 Dose 2022-0 No Unknown 3-09 00:00: 00 Dose 2022-0 No Unknown 3-09 00:00: 00 Dose 2022-0 No Unknown 3-09 00:00: 00 Dose 2022-0 No Unknown 3-09 00:00: 00 Dose 2022-0 No Unknown 3-09 00:00: 00 Dose 2022-0 No Unknown 3-09 00:00: 00 Dose 2022-0 No Unknown 3-09 00:00: 00 Dose 2022-0 No Unknown 3-09 00:00: 00 Dose 2022-0 No Unknown 3-09 00:00: 00 Dose 2022-0 No Unknown 3-09 00:00: 00 Dose 2022-0 No Unknown 3-09 00:00: 00 Dose 2022-0 No Unknown 3-09 00:00: 00 Dose 2022-0 No Unknown 3-09 00:00: 00 Dose 2022-0 No Unknown 3-09 00:00: 00 Dose 2022-0 No Unknown 3-09 00:00: 00 Dose 2022-0 No Unknown 3-09 00:00: 00 Dose 2022-0 No Unknown 3-09 00:00: 00 Dose 2022-0 No Unknown 3- 00:00: 00 Dose 2022-0 No Unknown 3- 00:00: 00 Dose 2022-0 No Unknown 3- 00:00: 00 Dose 2022-0 No Unknown 3- 00:00: 00 Dose 2022-0 No Unknown 3-09 00:00: 00 furosemide 2021-0 Yes [id number] 20mg Take 1 [facility] 20 mg 3-07 02 tablet by ity of tablet 00:00: mouth [place] 00 daily. Medical Branch carvediloL 2021-0 Yes [id number] 6.25mg Take 1 [facility] 6.25 mg 3-07 tablet by ity of tablet 00:00: mouth (two) Medical times Branch daily with meals. furosemide 2021-0 Yes [id number] 20mg Take 1 [facility] 20 mg 3-07 02 tablet by ity of tablet 00:00: mouth 00 daily. Medical Branch carvediloL 2021-0 Yes [id number] 6.25mg Take 1 [facility] 6.25 mg 3-07 tablet by ity of tablet 00:00: mouth (two) Medical times Branch daily with meals. furosemide 2021-0 Yes [id number] 20mg Take 1 [facility] 20 mg 3-07 02 tablet by ity of tablet 00:00: mouth [place] 00 daily. Medical Branch carvediloL 2021-0 Yes [id number] 6.25mg Take 1 [facility] 6.25 mg 3-07 tablet by ity of tablet 00:00: mouth (two) Medical times Branch daily with meals. furosemide 2021-0 Yes [id number] 20mg Take 1 [facility] 20 mg 3-07 02 tablet by ity of tablet 00:00: mouth 00 daily. Medical Branch carvediloL 2021-0 Yes [id number] 6.25mg Take 1 [facility] 6.25 mg 3-07 tablet by ity of tablet 00:00: mouth 2 00 (two) Medical times Branch daily with meals. furosemide 2021-0 Yes [id number] 20mg Take 1 [facility] 20 mg 3-07 02 tablet by ity of tablet 00:00: mouth [place] 00 daily. Medical Branch carvediloL 2021-0 Yes [id number] 6.25mg Take 1 [facility] 6.25 mg 3-07 tablet by ity of tablet 00:00: mouth 2 (two) Medical times Branch daily with meals. furosemide 2021-0 Yes [id number] 20mg Take 1 [facility] 20 mg 3-07 02 tablet by ity of tablet 00:00: mouth [place] 00 daily. Medical Branch carvediloL 2021-0 Yes [id number] 6.25mg Take 1 [facility] 6.25 mg 3-07 tablet by ity of tablet 00:00: mouth 2 00 (two) Medical times Branch daily with meals. furosemide 2021-0 Yes [id number] 20mg Take 1 [facility] 20 mg 3-07 02 tablet by ity of tablet 00:00: mouth [place] 00 daily. Medical Branch carvediloL 2021-0 Yes [id number] 6.25mg Take 1 [facility] 6.25 mg 3-07 tablet by ity of tablet 00:00: mouth 2 (two) Medical times Branch daily with meals. furosemide 2021-0 Yes [id number] 20mg Take 1 [facility] 20 mg 3-07 02 tablet by ity of tablet 00:00: mouth [place] 00 daily. Medical Branch carvediloL 2021-0 Yes [id number] 6.25mg Take 1 [facility] 6.25 mg 3-07 tablet by ity of tablet 00:00: mouth 2 (two) Medical times Branch daily with meals. furosemide 2021-0 Yes [id number] 20mg Take 1 [facility] 20 mg 3-07 02 tablet by ity of tablet 00:00: mouth [place] 00 daily. Medical Branch carvediloL 2021-0 Yes [id number] 6.25mg Take 1 [facility] 6.25 mg 3-07 tablet by ity of tablet 00:00: mouth 2 00 (two) Medical times Branch daily with meals. furosemide 2021-0 Yes [id number] 20mg Take 1 [facility] 20 mg 3-07 02 tablet by ity of tablet 00:00: mouth [place] 00 daily. Medical Branch carvediloL 2021-0 Yes [id number] 6.25mg Take 1 [facility] 6.25 mg 3-07 tablet by ity of tablet 00:00: mouth 2 00 (two) Medical times Branch daily with meals. furosemide 2021-0 Yes [id number] 20mg Take 1 [facility] 20 mg 3-07 02 tablet by ity of tablet 00:00: mouth [place] 00 daily. Medical Branch carvediloL 2021-0 Yes [id number] 6.25mg Take 1 [facility] 6.25 mg 3-07 tablet by ity of tablet 00:00: mouth 2 (two) Medical times Branch daily with meals. furosemide 2021-0 Yes [id number] 20mg Take 1 [facility] 20 mg 3-07 02 tablet by ity of tablet 00:00: mouth [place] 00 daily. Medical Branch carvediloL 2021-0 Yes [id number] 6.25mg Take 1 [facility] 6.25 mg 3-07 tablet by ity of tablet 00:00: mouth 2 00 (two) Medical times Branch daily with meals. furosemide 2021-0 Yes [id number] 20mg Take 1 [facility] 20 mg 3-07 02 tablet by ity of tablet 00:00: mouth [place] 00 daily. Medical Branch carvediloL 2021-0 Yes [id number] 6.25mg Take 1 [facility] 6.25 mg 3-07 tablet by ity of tablet 00:00: mouth 2 (two) Medical times Branch daily with meals. furosemide 2021-0 Yes [id number] 20mg Take 1 [facility] 20 mg 3-07 02 tablet by ity of tablet 00:00: mouth [place] 00 daily. Medical Branch carvediloL 2021-0 Yes [id number] 6.25mg Take 1 [facility] 6.25 mg 3-07 tablet by ity of tablet 00:00: mouth 2 (two) Medical times Branch daily with meals. furosemide 2021-0 Yes [id number] 20mg Take 1 [facility] 20 mg 3-07 02 tablet by ity of tablet 00:00: mouth [place] 00 daily. Medical Branch carvediloL 2021-0 Yes [id number] 6.25mg Take 1 [facility] 6.25 mg 3-07 tablet by ity of tablet 00:00: mouth 2 00 (two) Medical times Branch daily with meals. furosemide 2021-0 Yes [id number] 20mg Take 1 [facility] 20 mg 3-07 02 tablet by ity of tablet 00:00: mouth [place] 00 daily. Medical Branch carvediloL 2021-0 Yes [id number] 6.25mg Take 1 [facility] 6.25 mg 3-07 tablet by ity of tablet 00:00: mouth 2 (two) Medical times Branch daily with meals. furosemide 2021-0 Yes [id number] 20mg Take 1 [facility] 20 mg 3-07 02 tablet by ity of tablet 00:00: mouth [place] 00 daily. Medical Branch carvediloL 2021-0 Yes [id number] 6.25mg Take 1 [facility] 6.25 mg 3-07 tablet by ity of tablet 00:00: mouth 2 00 (two) Medical times Branch daily with meals. furosemide 2021-0 Yes [id number] 20mg Take 1 [facility] 20 mg 3-07 02 tablet by ity of tablet 00:00: mouth [place] 00 daily. Medical Branch carvediloL 2021-0 Yes [id number] 6.25mg Take 1 [facility] 6.25 mg 3-07 tablet by ity of tablet 00:00: mouth 2 (two) Medical times Branch daily with meals. furosemide 2021-0 Yes [id number] 20mg Take 1 [facility] 20 mg 3-07 02 tablet by ity of tablet 00:00: mouth [place] 00 daily. Medical Branch carvediloL 2021-0 Yes [id number] 6.25mg Take 1 [facility] 6.25 mg 3-07 tablet by ity of tablet 00:00: mouth 2 (two) Medical times Branch daily with meals. furosemide 2021-0 Yes [id number] 20mg Take 1 [facility] 20 mg 3-07 02 tablet by ity of tablet 00:00: mouth [place] 00 daily. Medical Branch carvediloL 2021-0 Yes [id number] 6.25mg Take 1 [facility] 6.25 mg 3-07 tablet by ity of tablet 00:00: mouth 2 00 (two) Medical times Branch daily with meals. furosemide 2021-0 Yes [id number] 20mg Take 1 [facility] 20 mg 3-07 02 tablet by ity of tablet 00:00: mouth [place] 00 daily. Medical Branch carvediloL 2021-0 Yes [id number] 6.25mg Take 1 [facility] 6.25 mg 3-07 tablet by ity of tablet 00:00: mouth 2 00 (two) Medical times Branch daily with meals. furosemide 2-0 Yes [id number] 20mg Take 1 [facility] 20 mg 3-07 02 tablet by ity of tablet 00:00: mouth [place] 00 daily. Medical Branch carvediloL 0 Yes [id number] 6.25mg Take 1 [facility] 6.25 mg 3-07 tablet by ity of tablet 00:00: mouth 2 [place] 00 (two) Medical times Branch daily with meals. furosemide 2021-0 Yes [id number] 20mg Take 1 [facility] 20 mg 3- 02 tablet by ity of tablet 00:00: mouth [place] 00 daily. Medical Branch carvediloL 2021-0 Yes [id number] 6.25mg Take 1 [facility] 6.25 mg 3-07 tablet by ity of tablet 00:00: mouth 2 [place] 00 (two) Medical times Branch daily with meals. furosemide 2- No [id number] 20mg Take 1 [facility] 20 mg 3-07 - 02 tablet by ity of tablet 00:00: 00:00 mouth [place] 00 :00 daily. Medical Branch carvediloL 2021- No [id number] 6.25mg Take 1 [facility] 6.25 mg 3- 12- tablet by ity of tablet 00:00: 00:00 mouth 2 [place] 00 :00 (two) Medical times Branch daily with meals. furosemide 2021-0 2021- No [id number] 20mg Take 1 [facility] 20 mg 3- 12- 02 tablet by ity of tablet 00:00: 00:00 [facility] [place] 00 :00 daily. Medical Branch carvediloL 2- No [id number] 6.25mg Take 1 [facility] 6.25 mg 3- 12-06 tablet by ity of tablet 00:00: 00:[address] [place] [address] 00 :00 (two) Medical times Branch daily with meals. amlodipine 2-0 No 1mg 10 mg 1-31 tablet 00:00: 00 Fosamax 70 2022-0 No 1mg mg tablet 09-17 00:00: 00 amlodipine 2022-0 No 1mg 10 mg 1-31 tablet 00:00: 00 Fosamax 70 2022-0 No 1mg mg tablet 09-17 00:00: 00 amlodipine 2022-0 No 1mg 10 mg 1-31 tablet 00:00: 00 Fosamax 70 2022-0 No 1mg mg tablet 09-17 00:00: 00 amlodipine 2022-0 No 1mg 5 mg tablet 08-22 00:00: 00 Vagifem 10 2021-0 No 1mcg mcg vaginal 1-05 tablet 00:00: 00 amlodipine 2-0 No 1mg 5 mg tablet 1-05 00:00: 00 Vagifem 10 2021-0 No 1mcg mcg vaginal 1-05 tablet 00:00: 00 amlodipine 2-0 No 1mg 5 mg tablet 1-05 00:00: 00 Vagifem 10 2021-0 No 1mcg mcg vaginal 1-05 tablet 00:00: 00 Dose 2020-1 No Unknown 2-29 00:00: 00 Dose 2020-1 No Unknown 2-29 00:00: 00 Dose 2020-1 No Unknown 2-29 00:00: 00 Micardis 80 2020-1 No 1mg mg tablet 2-13 00:00: 00 Micardis 80 2020-1 No 1mg mg tablet 2-13 00:00: 00 Micardis 80 2020-1 No 1mg mg tablet 2-13 00:00: 00 amlodipine 2020-1 No 1mg 10 mg 2-10 tablet 00:00: 00 Xarelto 15 2020-1 No 1mg mg tablet 2-10 00:00: 00 furosemide 2020-1 No 1mg 20 mg 2-10 tablet 00:00: 00 Micardis 2020-1 No 1mg HCT 80 2-10 mg-12.5 mg 00:00: tablet 00 Xarelto 15 2020-1 No 1mg mg tablet 2-10 00:00: 00 carvedilol 2020-1 No 1mg 6.25 mg 2-10 tablet 00:00: 00 amlodipine 2020-1 No 1mg 10 mg 2-10 tablet 00:00: 00 Xarelto 15 2020-1 No 1mg mg tablet 2-10 00:00: 00 furosemide 2020-1 No 1mg 20 mg 2-10 tablet 00:00: 00 Micardis 2020-1 No 1mg HCT 80 2-10 mg-12.5 mg 00:00: tablet 00 Xarelto 15 2020-1 No 1mg mg tablet 2-10 00:00: 00 carvedilol 2020-1 No 1mg 6.25 mg 2-10 tablet 00:00: 00 amlodipine 2020-1 No 1mg 10 mg 2-10 tablet 00:00: 00 Xarelto 15 2020-08 No 1mg mg tablet 2-10 00:00: 00 furosemide 2020-08 No 1mg 20 mg 2-10 tablet 00:00: 00 Micardis 2020-08 No 1mg HCT 80 2-10 mg-12.5 mg 00:00: tablet 00 Xarelto 15 2020-08 No 1mg mg tablet 2-10 00:00: 00 carvedilol 2020-08 No 1mg 6.25 mg 2-10 tablet 00:00: 00 amlodipine 2020-08 No 1mg 10 mg 2-08 tablet 00:00: 00 furosemide 2020-08 No 1mg 20 mg 2-08 tablet 00:00: 00 Xarelto 15 2020-08 No 1mg mg tablet 2-08 00:00: 00 carvedilol 2020-08 No 1mg 6.25 mg 2-08 tablet 00:00: 00 amlodipine 2020-08 No 1mg 10 mg 2-08 tablet 00:00: 00 furosemide 2020-08 No 1mg 20 mg 2-08 tablet 00:00: 00 Xarelto 15 2020-08 No 1mg mg tablet 2-08 00:00: 00 carvedilol 2020-08 No 1mg 6.25 mg 2-08 tablet 00:00: 00 amlodipine 2020-08 No 1mg 10 mg 2-08 tablet 00:00: 00 furosemide 2020-08 No 1mg 20 mg 2-08 tablet 00:00: 00 Xarelto 15 2020-08 No 1mg mg tablet 2-08 00:00: 00 carvedilol 2020-08 No 1mg 6.25 mg 2-08 tablet 00:00: 00 rivaroxaban 2020-08 Yes 1358 15mg Take 1 [facility] ers (XARELTO) 2-01 tablet by ity o f 15 mg 00:00: mouth [place] tablet 00 daily. Medical Indication Branch s: atrial fibrillati on rivaroxaban 2020-08 Yes 1358 15mg Take 1 Univ ers (XARELTO) 2-01 tablet by ity o f 15 mg 00:00: mouth [place] tablet 00 daily. Medical Indication Branch s: atrial fibrillati on rivaroxaban 2020-08 Yes 1358 15mg Take 1 Univ ers (XARELTO) 2-01 tablet by ity o f 15 mg 00:00: mouth [place] tablet 00 daily. Medical Indication Branch s: atrial fibrillati on rivaroxaban 2020-08 Yes 1358 15mg Take 1 Univ ers (XARELTO) 2-01 tablet by ity o f 15 mg 00:00: mouth [place] tablet 00 daily. Medical Indication Branch s: atrial fibrillati on rivaroxaban 2020-08 Yes 1358 15mg Take 1 [facility] ers (XARELTO) 2-01 tablet by ity o f 15 mg 00:00: mouth [place] tablet 00 daily. Medical Indication Branch s: atrial fibrillati on rivaroxaban 2020-08 Yes 1358 15mg Take 1 [facility] ers (XARELTO) 2-01 tablet by ity o f 15 mg 00:00: mouth [place] tablet 00 daily. Medical Indication Branch s: atrial fibrillati on rivaroxaban 2020-08 Yes 1358 15mg Take 1 Univ ers (XARELTO) 2-01 tablet by ity o f 15 mg 00:00: mouth [place] tablet 00 daily. Medical Indication Branch s: atrial fibrillati on rivaroxaban 2020-08 Yes 1358 15mg Take 1 Univ ers (XARELTO) 2-01 tablet by ity o f 15 mg 00:00: mouth [place] tablet 00 daily. Medical Indication Branch s: atrial fibrillati on rivaroxaban 2020-08 Yes 1358 15mg Take 1 Univ ers (XARELTO) 2-01 tablet by ity o f 15 mg 00:00: mouth [place] tablet 00 daily. Medical Indication Branch s: atrial fibrillati on rivaroxaban 2020-08 Yes 1358 15mg Take 1 Univ ers (XARELTO) 2-01 tablet by ity o f 15 mg 00:00: mouth [place] tablet 00 daily. Medical Indication Branch s: atrial fibrillati on rivaroxaban 2020-08 Yes 1358 15mg Take 1 Univ ers (XARELTO) 2-01 tablet by ity o f 15 mg 00:00: mouth [place] tablet 00 daily. Medical Indication Branch s: atrial fibrillati on rivaroxaban 2020-08 Yes 1358 15mg Take 1 Univ ers (XARELTO) 2-01 tablet by ity o f 15 mg 00:00: mouth [place] tablet 00 daily. Medical Indication Branch s: atrial fibrillati on rivaroxaban 2020-08 Yes 1358 15mg Take 1 Univ ers (XARELTO) 2-01 tablet by ity o f 15 mg 00:00: mouth [place] tablet 00 daily. Medical Indication Branch s: atrial fibrillati on rivaroxaban 2020-08 Yes 1358 15mg Take 1 Univ ers (XARELTO) 2-01 tablet by ity o f 15 mg 00:00: mouth [place] tablet 00 daily. Medical Indication Branch s: atrial fibrillati on rivaroxaban 2020-08 Yes 1358 15mg Take 1 Univ ers (XARELTO) 2-01 tablet by ity o f 15 mg 00:00: mouth [place] tablet 00 daily. Medical Indication Branch s: atrial fibrillati on rivaroxaban 2020-08 Yes 1358 15mg Take 1 Univ ers (XARELTO) 2-01 tablet by ity o f 15 mg 00:00: mouth [place] tablet 00 daily. [facility] Indication [facility]: atrial fibrillati on rivaroxaban 2020-08 Yes 1358 15mg Take 1 [facility] (XARELTO) 2-01 tablet by ity o f 15 mg 00:00: mouth [place] tablet 00 daily. [facility] Indication [facility]: atrial fibrillati on rivaroxaban 2020-08 Yes 1358 15mg Take 1 [facility] (XARELTO) 2-01 tablet by ity o f 15 mg 00:00: mouth [place] tablet 00 daily. Medical Indication [facility] s: atrial fibrillati on rivaroxaban 2020-08 Yes 1358 15mg Take 1 [facility] (XARELTO) 2-01 tablet by ity o f 15 mg 00:00: mouth [place] tablet 00 daily. [facility] Indication [facility] s: atrial fibrillati on rivaroxaban 2020-08 Yes 1358 15mg Take 1 [facility] (XARELTO) 2-01 tablet by [facility] o f 15 mg 00:00: mouth [place] tablet 00 daily. [facility] Indication [facility] s: atrial fibrillati on rivaroxaban 2020-08 Yes 1358 15mg Take 1 [facility] (XARELTO) 2-01 tablet by [facility] o f 15 mg 00:00: mouth [place] tablet 00 daily. [facility] Indication [facility] s: atrial fibrillati on rivaroxaban 2020-08 Yes 1358 15mg Take 1 [facility] (XARELTO) 2-01 tablet by [facility] o f 15 mg 00:00: mouth [place] tablet 00 daily. Medical Indication [facility] s: atrial fibrillati on rivaroxaban 2020-08 Yes 1358 15mg Take 1 [facility] (XARELTO) 09-18 tablet by ity o f 15 mg 00:00: mouth [place] tablet 00 daily. Medical Indication Branch s: atrial fibrillati on rivaroxaban 2020-08- No 1358 15mg Take 1 [facility] (XARELTO) 09-18 tablet by [facility] 15 mg 00:00: 00:00 mouth [place] tablet 00 :00 daily. Medical Indication Branch s: atrial fibrillati on rivaroxaban 2020-08- No 1358 15mg Take 1 [facility] (XARELTO) 09-18 tablet by [facility] 15 mg 00:00: 00:00 mouth [place] tablet 00 :00 daily. Medical Indication Branch s: atrial fibrillati on meloxicam 2020-08 No 1mg 15 mg 1-10 tablet 00:00: 00 fluconazole 2020-08 No 1mg 200 mg 1-10 tablet 00:00: 00 ciprofloxac 2020-08 No 1mg in 500 mg 1-10 tablet 00:00: 00 meloxicam 2020-08 No 1mg 15 mg 1-10 tablet 00:00: 00 fluconazole 2020-08 No 1mg 200 mg 1-10 tablet 00:00: 00 ciprofloxac 2020-08 No 1mg in 500 mg 1-10 tablet 00:00: 00 meloxicam 2020-08 No 1mg 15 mg 1-10 tablet 00:00: 00 fluconazole 2020-08 No 1mg 200 mg 1-10 tablet 00:00: 00 ciprofloxac 2020-08 No 1mg in 500 mg 1-10 tablet 00:00: 00 Dose 2020-08 No Unknown 08-19 00:00: 00 Vagifem 10 2020-08 No 1mcg mcg vaginal -02 tablet 00:00: 00 fluticasone 2020-08 No 1mcg/ac propionate 08-19 tuation 50 00:00: mcg/actuati 00 on nasal spray,suspe nsion omeprazole 2020-08 No 1mg 20 mg -02 capsule,del 00:00: ayed 00 release lactulose 2020-08 No 3gram/1 10 gram/15 -02 5 mL mL oral 00:00: solution 00 lactulose 2020-08 No 30gram/ 10 gram/15 1-02 15 mL mL oral 00:00: solution 00 Dose 2020-08 No Unknown 1-02 00:00: 00 Vagifem 10 2020-08 No 1mcg mcg vaginal -02 tablet 00:00: 00 Dose 2020-08 No Unknown 1-02 00:00: 00 Vagifem 10 2020-08 No 1mcg mcg vaginal -02 tablet 00:00: 00 fluticasone 2020-08 No 1mcg/ac propionate 08-19 tuation 50 00:00: mcg/actuati 00 on nasal spray,suspe nsion omeprazole 2020-08 No 1mg 20 mg 1-02 capsule,del 00:00: ayed 00 release lactulose 2020-08 No 3gram/1 10 gram/15 1-02 5 mL mL oral 00:00: solution 00 lactulose 2020-08 No 30gram/ 10 gram/15 1-02 15 mL mL oral 00:00: solution 00 fluticasone 2020-08 No 1mcg/ac propionate 02 tuation 50 00:00: mcg/actuati 00 on nasal spray,suspe nsion omeprazole 2020-08 No 1mg 20 mg 1-02 capsule,del 00:00: ayed 00 release lactulose 2020-08 No 3gram/1 10 gram/15 1-02 5 mL mL oral 00:00: solution 00 lactulose 2020-08 No 30gram/ 10 gram/15 1-02 15 mL mL oral 00:00: solution 00 ciprofloxac 2020-08 No 1mg in 500 mg 0-30 tablet 00:00: 00 ciprofloxac 2020-08 No 1mg in 500 mg 0-30 tablet 00:00: 00 ciprofloxac 2020-08 No 1mg in 500 mg 0-30 tablet 00:00: 00 ciprofloxac 2020-08 No 1mg in 500 mg 0-30 tablet 00:00: 00 ciprofloxac 2020-08 No 1mg in 500 mg 0-30 tablet 00:00: 00 ciprofloxac 2020-08 No 1mg in 500 mg 0-30 tablet 00:00: 00 Diflucan 2020-08 No 1mg 150 mg 0-21 tablet 00:00: 00 Vagifem 10 2020-08 No 1mcg mcg vaginal 0-21 tablet 00:00: 00 omeprazole 1 No 1mg 20 mg 0-21 capsule,del 00:00: ayed 00 release Diflucan 1 No 1mg 150 mg 0-21 tablet 00:00: 00 Vagifem 10 1 No 1mcg mcg vaginal 0-21 tablet 00:00: 00 omeprazole 2020-08 No 1mg 20 mg 0-21 capsule,del 00:00: ayed 00 release Diflucan 1 No 1mg 150 mg 0-21 tablet 00:00: 00 Vagifem 10 2020-08 No 1mcg mcg vaginal 0-21 tablet 00:00: 00 omeprazole 2020-08 No 1mg 20 mg 0-21 capsule,del 00:00: ayed 00 release Micardis 2020-08 No 1mg HCT 80 0-05 mg-12.5 mg 00:00: tablet 00 Micardis 2020-08 No 1mg HCT 80 0-05 mg-12.5 mg 00:00: tablet 00 Micardis 1 No 1mg HCT 80 0-05 mg-12.5 mg 00:00: tablet 00 Zetia 10 mg 2020-0 No 1mg tablet 04-20 00:00: 00 Zetia 10 mg 2020-0 No 1mg tablet 04-20 00:00: 00 Zetia 10 mg 2020-0 No 1mg tablet 04-20 00:00: 00 Vagifem 10 2020-0 No 1mcg mcg vaginal 8-02 tablet 00:00: 00 Vagifem 10 2020-0 No 1mcg mcg vaginal 8-02 tablet 00:00: 00 Vagifem 10 2020-0 No 1mcg mcg vaginal 8-02 tablet 00:00: 00 meloxicam 1-0 Yes [id number] 7.5mg Take 1 [facility] 7.5 mg 7-22 [id number] tablet by [facility] tablet 00:00: mouth once 00 daily as Medical needed for Branch Pain (scale 4-6) for up to 15 doses. meloxicam 2021-0 Yes [id number] 7.5mg Take 1 [facility] 7.5 mg 7-22 [id number] tablet by [facility] tablet 00:00: mouth once [place] 00 daily as Medical needed for Branch Pain (scale 4-6) for up to 15 doses. meloxicam Yes [id number] 7.5mg Take 1 [facility] 7.5 mg 7-22 [id number] tablet by [facility] tablet 00:00: mouth once [place] 00 daily as Medical needed for Branch Pain (scale 4-6) for up to 15 doses. meloxicam Yes [id number] 7.5mg Take 1 [facility] 7.5 mg 7-22 [id number] tablet by [facility] of tablet 00:00: mouth once [place] 00 daily as Medical needed for Branch Pain (scale 4-6) for up to 15 doses. meloxicam Yes [id number] 7.5mg Take 1 [facility] 7.5 mg 7-22 [id number] tablet by [facility] of tablet 00:00: mouth once [place] 00 daily as Medical needed for Branch Pain (scale 4-6) for up to 15 doses. meloxicam Yes [id number] 7.5mg Take 1 [facility] 7.5 mg 7-22 [id number] tablet by [facility] of tablet 00:00: mouth once [place] 00 daily as Medical needed for Branch Pain (scale 4-6) for up to 15 doses. meloxicam Yes [id number] 7.5mg Take 1 [facility] 7.5 mg 7-22 [id number] tablet by [facility] of tablet 00:00: mouth once [place] 00 daily as Medical needed for Branch Pain (scale 4-6) for up to 15 doses. meloxicam Yes [id number] 7.5mg Take 1 [facility] 7.5 mg 7-22 [id number] tablet by [facility] of tablet 00:00: mouth once [place] 00 daily as Medical needed for Branch Pain (scale 4-6) for up to 15 doses. meloxicam Yes [id number] 7.5mg Take 1 [facility] 7.5 mg 7-22 [id number] tablet by [facility] of tablet 00:00: mouth once [place] 00 daily as Medical needed for Branch Pain (scale 4-6) for up to 15 doses. meloxicam Yes [id number] 7.5mg Take 1 [facility] 7.5 mg 7-22 [id number] tablet by [facility] of tablet 00:00: mouth once [place] 00 daily as Medical needed for Branch Pain (scale 4-6) for up to 15 doses. meloxicam Yes [id number] 7.5mg Take 1 [facility] 7.5 mg 7-22 [id number] tablet by [facility] of tablet 00:00: mouth once [place] 00 daily as Medical needed for Branch Pain (scale 4-6) for up to 15 doses. meloxicam Yes [id number] 7.5mg Take 1 [facility] 7.5 mg 7-22 [id number] tablet by [facility] tablet 00:00: mouth once [place] 00 daily as Medical needed for Branch Pain (scale 4-6) for up to 15 doses. meloxicam Yes [id number] 7.5mg Take 1 [facility] 7.5 mg 7-22 [id number] tablet by [facility] of tablet 00:00: mouth once [place] 00 daily as Medical needed for Branch Pain (scale 4-6) for up to 15 doses. meloxicam Yes [id number] 7.5mg Take 1 [facility] 7.5 mg 7-22 [id number] tablet by [facility] of tablet 00:00: mouth once [place] 00 daily as Medical needed for Branch Pain (scale 4-6) for up to 15 doses. meloxicam Yes [id number] 7.5mg Take 1 [facility] 7.5 mg 7-22 [id number] tablet by [facility] of tablet 00:00: mouth once [place] 00 daily as Medical needed for Branch Pain (scale 4-6) for up to 15 doses. meloxicam Yes [id number] 7.5mg Take 1 [facility] 7.5 mg 7-22 [id number] tablet by [facility] of tablet 00:00: mouth once [place] 00 daily as Medical needed for Branch Pain (scale 4-6) for up to 15 doses. meloxicam Yes [id number] 7.5mg Take 1 [facility] 7.5 mg 7-22 [id number] tablet by [facility] of tablet 00:00: mouth once [place] 00 daily as Medical needed for Branch Pain (scale 4-6) for up to 15 doses. meloxicam Yes [id number] 7.5mg Take 1 [facility] 7.5 mg 7-22 [id number] tablet by [facility] of tablet 00:00: mouth once [place] 00 daily as Medical needed for Branch Pain (scale 4-6) for up to 15 doses. meloxicam Yes [id number] 7.5mg Take 1 [facility] 7.5 mg 7-22 [id number] tablet by [facility] of tablet 00:00: mouth once [place] 00 daily as Medical needed for Branch Pain (scale 4-6) for up to 15 doses. meloxicam Yes [id number] 7.5mg Take 1 [facility] 7.5 mg 7-22 [id number] tablet by [facility] of tablet 00:00: mouth once [place] 00 daily as Medical needed for Branch Pain (scale 4-6) for up to 15 doses. meloxicam Yes [id number] 7.5mg Take 1 [facility] 7.5 mg 7-22 [id number] tablet by [facility] of tablet 00:00: mouth once [place] 00 daily as Medical needed for Branch Pain (scale 4-6) for up to 15 doses. meloxicam Yes [id number] 7.5mg Take 1 [facility] 7.5 mg 7-22 [id number] tablet by [facility] of tablet 00:00: mouth once [place] 00 daily as Medical needed for Branch Pain (scale 4-6) for up to 15 doses. meloxicam Yes [id number] 7.5mg Take 1 [facility] 7.5 mg 7-22 [id number] tablet by [facility] of tablet 00:00: mouth once [place] 00 daily as Medical needed for Branch Pain (scale 4-6) for up to 15 doses. meloxicam Yes [id number] 7.5mg Take 1 [facility] 7.5 mg 7-22 [id number] tablet by [facility] of tablet 00:00: mouth once [place] 00 daily as Medical needed for Branch Pain (scale 4-6) for up to 15 doses. meloxicam Yes [id number] 7.5mg Take 1 [facility] 7.5 mg 7-22 [id number] tablet by [facility] of tablet 00:00: mouth once [place] 00 daily as Medical needed for Branch Pain (scale 4-6) for up to 15 doses. meloxicam Yes [id number] 7.5mg Take 1 [facility] 7.5 mg 7-22 [id number] tablet by [facility] of tablet 00:00: mouth once [place] 00 daily as Medical needed for Branch Pain (scale 4-6) for up to 15 doses. meloxicam Yes [id number] 7.5mg Take 1 [facility] 7.5 mg 7-22 [id number] tablet by [facility] of tablet 00:00: mouth once [place] 00 daily as Medical needed for Branch Pain (scale 4-6) for up to 15 doses. meloxicam Yes [id number] 7.5mg Take 1 [facility] 7.5 mg 7-22 [id number] tablet by [facility] of tablet 00:00: mouth once [place] 00 daily as Medical needed for Branch Pain (scale 4-6) for up to 15 doses. meloxicam Yes [id number] 7.5mg Take 1 [facility] 7.5 mg 7-22 [id number] tablet by [facility] of tablet 00:00: mouth once [place] 00 daily as Medical needed for Branch Pain (scale 4-6) for up to 15 doses. meloxicam Yes [id number] 7.5mg Take 1 [facility] 7.5 mg 7-22 [id number] tablet by [facility] of tablet 00:00: mouth once [place] 00 daily as Medical needed for Branch Pain (scale 4-6) for up to 15 doses. meloxicam Yes [id number] 7.5mg Take 1 [facility] 7.5 mg 7-22 [id number] tablet by [facility] of tablet 00:00: mouth once [place] 00 daily as Medical needed for Branch Pain (scale 4-6) for up to 15 doses. meloxicam Yes [id number] 7.5mg Take 1 [facility] 7.5 mg 7-22 [id number] tablet by [facility] of tablet 00:00: mouth once [place] 00 daily as Medical needed for Branch Pain (scale 4-6) for up to 15 doses. meloxicam Yes [id number] 7.5mg Take 1 [facility] 7.5 mg 7-22 [id number] tablet by [facility] of tablet 00:00: mouth once [place] 00 daily as Medical needed for Branch Pain (scale 4-6) for up to 15 doses. meloxicam Yes [id number] 7.5mg Take 1 [facility] 7.5 mg 7-22 [id number] tablet by [facility] of tablet 00:00: mouth once [place] 00 daily as Medical needed for Branch Pain (scale 4-6) for up to 15 doses. meloxicam Yes [id number] 7.5mg Take 1 [facility] 7.5 mg 7-22 [id number] tablet by [facility] of tablet 00:00: mouth once [place] 00 daily as Medical needed for Branch Pain (scale 4-6) for up to 15 doses. meloxicam 2021-0 Yes [id number] 7.5mg Take 1 [facility] 7.5 mg 7-22 [id number] tablet by [facility] of tablet 00:00: mouth once daily as Medical needed for Branch Pain (scale 4-6) for up to 15 doses. meloxicam 2021-0 Yes [id number] 7.5mg Take 1 [facility] 7.5 mg 7-22 [id number] tablet by [facility] of tablet 00:00: mouth once daily as Medical needed for Branch Pain (scale 4-6) for up to 15 doses. omeprazole 1-0 No 1mg 20 mg 7-22 capsule,del 00:00: ayed 00 release omeprazole 2021-0 No 1mg 20 mg 7-22 capsule,del 00:00: ayed 00 release omeprazole 2021-0 No 1mg 20 mg 7-22 capsule,del 00:00: ayed 00 release Dose 2021-0 No Unknown 7-15 00:00: 00 Dose 2021-0 No Unknown 7-15 00:00: 00 Dose 2021-0 No Unknown 7-15 00:00: 00 Micardis 2021-0 No 1mg HCT 80 7-12 mg-12.5 mg 00:00: tablet 00 Micardis 2021-0 No 1mg HCT 80 7-12 mg-12.5 mg 00:00: tablet 00 Micardis 2021-0 No 1mg HCT 80 7-12 mg-12.5 mg 00:00: tablet 00 telmisartan 2021-0 No 1mg 80 7-08 mg-hydrochl 00:00: orothiazide 00 12.5 mg tablet telmisartan 2021-0 No 1mg 80 7-08 mg-hydrochl 00:00: orothiazide 00 12.5 mg tablet telmisartan 2021-0 No 1mg 80 7-08 mg-hydrochl 00:00: orothiazide 00 12.5 mg tablet meloxicam 2021-0 No 1mg 15 mg 6-09 tablet 00:00: 00 meloxicam 2021-0 No 1mg 15 mg 6-09 tablet 00:00: 00 meloxicam 2021-0 No 1mg 15 mg 6-09 tablet 00:00: 00 Vagifem 10 1-0 No 1mcg mcg vaginal 5-13 tablet 00:00: 00 Vagifem 10 1-0 No 1mcg mcg vaginal 5-13 tablet 00:00: 00 Vagifem 10 1-0 No 1mcg mcg vaginal 5-13 tablet 00:00: 00 lactulose 2021-0 No 30gram/ 10 gram/15 5-12 15 mL mL oral 00:00: solution 00 lactulose 2021-0 No 30gram/ 10 gram/15 5-12 15 mL mL oral 00:00: solution 00 lactulose 1-0 No 30gram/ 10 gram/15 5-12 15 mL mL oral 00:00: solution 00 ciprofloxac 1-0 No 1mg in 500 mg 4-29 tablet 00:00: 00 ciprofloxac 1-0 No 1mg in 500 mg 4-29 tablet 00:00: 00 ciprofloxac 1-0 No 1mg in 500 mg 4-29 tablet 00:00: 00 omeprazole 1-0 No 1mg 20 mg 4-26 capsule,del 00:00: ayed 00 release omeprazole 1-0 No 1mg 20 mg 4-26 capsule,del 00:00: ayed 00 release omeprazole 1-0 No 1mg 20 mg 4-26 capsule,del 00:00: ayed 00 release telmisartan 1-0 No 1mg 80 4-20 mg-hydrochl 00:00: orothiazide 00 12.5 mg tablet Zetia 10 mg 1-0 No 1mg tablet 4-20 00:00: 00 buspirone 2021-0 No 1mg 10 mg 4-20 tablet 00:00: 00 Macrobid 2021-0 No 1mg 100 mg 4-20 capsule 00:00: 00 telmisartan 2021-0 No 1mg 80 4-20 mg-hydrochl 00:00: orothiazide 00 12.5 mg tablet [facility] 10 mg 2021-0 No 1mg tablet 4-20 00:00: 00 buspirone 2021-0 No 1mg 10 mg 4-20 tablet 00:00: 00 Macrobid 2021-0 No 1mg 100 mg 4-20 capsule 00:00: 00 telmisartan 2021-0 No 1mg 80 4-20 mg-hydrochl 00:00: orothiazide 00 12.5 mg tablet [facility] 10 mg 1-0 No 1mg tablet 4-20 00:00: 00 buspirone 2021-0 No 1mg 10 mg 4-20 tablet 00:00: 00 Macrobid 2021-0 No 1mg 100 mg 4-20 capsule 00:00: 00 Zetia 10 mg 1-0 No 1mg tablet 4-14 00:00: 00 Zetia 10 mg 1-0 No 1mg tablet 4-14 00:00: 00 Zetia 10 mg 1-0 No 1mg tablet 4-14 00:00: 00 telmisartan 1-0 No 1mg 80 2-12 mg-hydrochl 00:00: orothiazide 00 12.5 mg tablet telmisartan 1-0 No 1mg 80 2-12 mg-hydrochl 00:00: orothiazide 00 12.5 mg tablet telmisartan 1-0 No 1mg 80 2-12 mg-hydrochl 00:00: orothiazide 00 12.5 mg tablet Remeron 15 1-0 No 1mg mg tablet 2-08 00:00: 00 Remeron 15 1-0 No 1mg mg tablet 2-08 00:00: 00 Remeron 15 1-0 No 1mg mg tablet 2-08 00:00: 00 estradiol 1-0 No 1% (0.1 0.01% (0.1 1-19 mg/gram mg/gram) 00:00: ) vaginal 00 cream estradiol 1-0 No 1% (0.1 0.01% (0.1 1-19 mg/gram mg/gram) 00:00: ) vaginal 00 cream Zetia 10 mg 1-0 No 1mg tablet 1-19 00:00: 00 Zetia 10 mg 1-0 No 1mg tablet 1-19 00:00: 00 estradiol 2021-0 No 1% (0.1 0.01% (0.1 1-19 mg/gram mg/gram) 00:00: ) vaginal 00 cream Zetia 10 mg 1-0 No 1mg tablet 1-19 00:00: 00 Zetia 10 mg 1-0 No 1mg tablet 1-15 00:00: 00 Zetia 10 mg 2020-0 No 1mg tablet 1-15 00:00: 00 Zetia 10 mg 2020-0 No 1mg tablet 1-15 00:00: 00 telmisartan 2019-1 No 1mg 80 2-14 mg-hydrochl 00:00: orothiazide 00 12.5 mg tablet telmisartan 2019-1 No 1mg 80 2-14 mg-hydrochl 00:00: orothiazide 00 12.5 mg tablet telmisartan 2019-1 No 1mg 80 2-14 mg-hydrochl 00:00: orothiazide 00 12.5 mg tablet telmisartan 2019-1 No 1mg 80 1-23 mg-hydrochl 00:00: orothiazide 00 12.5 mg tablet telmisartan 2019-1 No 1mg 80 mg 1-23 tablet 00:00: 00 telmisartan 2019-1 No 1mg 80 1-23 mg-hydrochl 00:00: orothiazide 00 12.5 mg tablet telmisartan 2019-1 No 1mg 80 mg 1-23 tablet 00:00: 00 telmisartan 2019-1 No 1mg 80 1-23 mg-hydrochl 00:00: orothiazide 00 12.5 mg tablet telmisartan 2019-1 No 1mg 80 mg 1-23 tablet 00:00: 00 levofloxaci 2020-1 No 1mg n 500 mg 1-07 tablet 00:00: 00 levofloxaci 2019-1 No 1mg n 500 mg 1-07 tablet 00:00: 00 levofloxaci 2019-1 No 1mg n 500 mg 1-07 tablet 00:00: 00 Diflucan 2019-1 No 1mg 150 mg 1-02 tablet 00:00: 00 fluticasone 2019-1 No 1mcg/ac propionate - tuation 50 00:00: mcg/actuati 00 on nasal spray,suspe nsion Diflucan 2019- No 1mg 150 mg 1-02 tablet 00:00: 00 fluticasone 2019-1 No 1mcg/ac propionate -02 tuation 50 00:00: mcg/actuati 00 on nasal spray,suspe nsion Diflucan 2019- No 1mg 150 mg 1-02 tablet 00:00: 00 fluticasone 2020-1 No 1mcg/ac propionate 1-02 tuation 50 00:00: mcg/actuati 00 on nasal spray,suspe nsion Dose 2020-0 No Unknown 7-13 00:00: 00 Vitamin D3 2020-0 No 1(1,000 25 mcg 7-13 unit) (1,000 00:00: unit) 00 capsule Dose 2020-0 No Unknown 7-13 00:00: 00 Vitamin D3 2020-0 No 1(1,000 25 mcg 7-13 unit) (1,000 00:00: unit) 00 capsule Dose 2020-0 No Unknown 7-13 00:00: 00 Vitamin D3 2020-0 No 1(1,000 25 mcg 7-13 unit) (1,000 00:00: unit) 00 capsule Zetia 10 mg 2020-0 No 1mg tablet 6-24 00:00: 00 telmisartan 2020-0 No 1mg 40 6-24 mg-hydrochl 00:00: orothiazide 00 12.5 mg tablet buspirone 2020-0 No 1mg 10 mg 6-24 tablet 00:00: 00 famotidine 2020-0 No 1mg 20 mg 6-24 tablet 00:00: 00 lactulose 2020-0 No 30gram/ 10 gram/15 6-24 15 mL mL oral 00:00: solution 00 Zetia 10 mg 2020-0 No 1mg tablet 6-24 00:00: 00 telmisartan 2020-0 No 1mg 40 6-24 mg-hydrochl 00:00: orothiazide 00 12.5 mg tablet buspirone 2020-0 No 1mg 10 mg 6-24 tablet 00:00: 00 famotidine 2020-0 No 1mg 20 mg 6-24 tablet 00:00: 00 lactulose 2020-0 No 30gram/ 10 gram/15 6-24 15 mL mL oral 00:00: solution 00 Zetia 10 mg 2020-0 No 1mg tablet 6-24 00:00: 00 telmisartan 2020-0 No 1mg 40 6-24 mg-hydrochl 00:00: orothiazide 00 12.5 mg tablet buspirone 2020-0 No 1mg 10 mg 6-24 tablet 00:00: 00 famotidine 2020-0 No 1mg 20 mg 6-24 tablet 00:00: 00 lactulose 2020-0 No 30gram/ 10 gram/15 6-24 15 mL mL oral 00:00: solution 00 omeprazole 2020-0 No 1mg 20 mg 3-18 tablet,regina 00:00: yed release 00 Zetia 10 mg 2020-0 No 1mg tablet 3-18 00:00: 00 lactulose 2020-0 No 1gram/1 10 gram/15 3-18 5 mL mL oral 00:00: solution 00 lactulose 2020-0 No 30gram/ 10 gram/15 3-18 15 mL mL oral 00:00: solution 00 omeprazole 2020-0 No 1mg 20 mg 3-18 tablet,regina 00:00: yed release 00 Zetia 10 mg 2020-0 No 1mg tablet 3-18 00:00: 00 lactulose 2020-0 No 1gram/1 10 gram/15 3-18 5 mL mL oral 00:00: solution 00 lactulose 2020-0 No 30gram/ 10 gram/15 3-18 15 mL mL oral 00:00: solution 00 omeprazole 2020-0 No 1mg 20 mg 3-18 tablet,regina 00:00: yed release 00 Zetia 10 mg 2020-0 No 1mg tablet 3-18 00:00: 00 lactulose 2020-0 No 1gram/1 10 gram/15 3-18 5 mL mL oral 00:00: solution 00 lactulose 2020-0 No 30gram/ 10 gram/15 3-18 15 mL mL oral 00:00: solution 00 telmisartan 2020-0 No 1mg 40 1-30 mg-hydrochl 00:00: orothiazide 00 12.5 mg tablet ezetimibe 2020-0 No 1mg 10 mg 1-30 tablet 00:00: 00 telmisartan 2020-0 No 1mg 40 1-30 mg-hydrochl 00:00: orothiazide 00 12.5 mg tablet buspirone 2020-0 No 1mg 10 mg 1-30 tablet 00:00: 00 lactulose 2020-0 No 1gram/1 10 gram/15 1-30 5 mL mL oral 00:00: solution 00 telmisartan 2020-0 No 1mg 40 1-30 mg-hydrochl 00:00: orothiazide 00 12.5 mg tablet ezetimibe 2020-0 No 1mg 10 mg 1-30 tablet 00:00: 00 telmisartan 2020-0 No 1mg 40 1-30 mg-hydrochl 00:00: orothiazide 00 12.5 mg tablet buspirone 2020-0 No 1mg 10 mg 1-30 tablet 00:00: 00 lactulose 2020-0 No 1gram/1 10 gram/15 1-30 5 mL mL oral 00:00: solution 00 telmisartan 2020-0 No 1mg 40 1-30 mg-hydrochl 00:00: orothiazide 00 12.5 mg tablet ezetimibe 2020-0 No 1mg 10 mg 1-30 tablet 00:00: 00 telmisartan 2020-0 No 1mg 40 1-30 mg-hydrochl 00:00: orothiazide 00 12.5 mg tablet buspirone 2020-0 No 1mg 10 mg 1-30 tablet 00:00: 00 lactulose 2020-0 No 1gram/1 10 gram/15 1-30 5 mL mL oral 00:00: solution 00 lactulose 2020-0 No 1gram/1 10 gram/15 1-06 5 mL mL oral 00:00: solution 00 meloxicam 2020-0 No 1mg 15 mg 1-06 tablet 00:00: 00 alprazolam 2020-0 No 1mg 0.5 mg 1-06 tablet 00:00: 00 Co Q-10 200 2020-0 No 1mg mg capsule 1-06 00:00: 00 tizanidine 2020-0 No 1mg 4 mg 1-06 capsule 00:00: 00 tizanidine 2020-0 No 1mg 4 mg 1-06 capsule 00:00: 00 lactulose 2020-0 No 1gram/1 10 gram/15 1-06 5 mL mL oral 00:00: solution 00 meloxicam 2020-0 No 1mg 15 mg 1-06 tablet 00:00: 00 lactulose 2020-0 No 1gram/1 10 gram/15 1-06 5 mL mL oral 00:00: solution 00 meloxicam 2020-0 No 1mg 15 mg 1-06 tablet 00:00: 00 alprazolam 2020-0 No 1mg 0.5 mg 1-06 tablet 00:00: 00 Co Q-10 200 2020-0 No 1mg mg capsule 1-06 00:00: 00 tizanidine 2020-0 No 1mg 4 mg 1-06 capsule 00:00: 00 tizanidine 2019-0 No 1mg 4 mg -06 capsule 00:00: 00 alprazolam 2019-0 No 1mg 0.5 mg -06 tablet 00:00: 00 Co Q-10 200 2019-0 No 1mg mg capsule 08-23 00:00: 00 tizanidine 2019-0 No 1mg 4 mg 1-06 capsule 00:00: 00 tizanidine 2019-0 No 1mg 4 mg -06 capsule 00:00: 00 aspirin Yes 81mg QD Take 81 mg [facility] (ECOTRIN) 7-[address] 81 MG 18:57: [facility] l coated tablet pravastatin Yes 20mg QD Take 20 mg [facility] (PRAVACHOL) 7-[address] 20 MG 18:57: nightly. [facility] tablet 14 l coenzyme Yes 200mg QD Take 200 [facility] Q10 200 mg 7-[address] capsule 18:57: [facility] 14 nightly. l FOLIC Yes 1{tbl} QD Take 1 [facility] ACID/MULTIV 7-[address] IT-MIN/LUTE 18:57: mouth [facility] (CENTRUM 14 daily. l SILVER ORAL) cholecalcif Yes 1000U QD Take 1,000 [facility], 7-[address] vitamin D3, 18:57: [facility] (VITAMIN 14 daily. l D3) 1,000 unit tablet OMEGA-3 Yes 1200mg QD Take 1,200 [facility] FATTY ACIDS 7-[address] (FISH OIL 18:57: [facility] CONCENTRATE 14 daily. l ORAL) ALPRAZolam Yes .25mg QD Take 0.25 [facility] (XANAX) 7-[address] 0.25 MG 18:57: [facility] tablet 14 nightly as l needed for anxiety. telmisartan Yes 1{tbl} QD Take 1 [facility] -hydrochlor 7-[address] othiazid 18:57: [facility] (MICARDIS 14 daily. l HCT) 80-12.5 mg per tablet lactulose Yes 30g Q.5D Take 30 g [facility] 10 gram/15 7-[address] mL (15 mL) 18:57: (two) Hospit a solution 14 times a l day. 3 Tbsp BID aspirin 2017-0 Yes 81mg QD Take 81 mg [facility] (ECOTRIN) 7-[address] 81 MG 18:57: daily. [facility] 14 l coated tablet pravastatin 2017-0 Yes 20mg QD Take 20 mg [facility] (PRAVACHOL) 7-[address] 20 MG 18:57: nightly. [facility] tablet 14 l coenzyme 2017-0 Yes 200mg QD Take 200 [facility] Q10 200 mg 7-[address] capsule 18:57: [facility] 14 nightly. l FOLIC 2017- Yes 1{tbl} QD Take 1 [facility] ACID/MULTIV 7-[address] IT-MIN/LUTE 18:57: [facility] (CENTRUM 14 daily. l SILVER ORAL) cholecalcif Yes 1000U QD Take 1,000 [facility], 7-[address] vitamin D3, 18:57: [facility] (VITAMIN 14 daily. l D3) 1,000 unit tablet OMEGA-3 Yes 1200mg QD Take 1,200 [facility] FATTY ACIDS 7-[address] (FISH OIL 18:57: [facility] CONCENTRATE 14 daily. l ORAL) ALPRAZolam Yes .25mg QD Take 0.25 [facility] (XANAX) 7-[address] 0.25 MG 18:57: [facility] tablet 14 nightly as l needed for anxiety. telmisartan 2017 Yes 1{tbl} QD Take 1 [facility] -hydrochlor 7-[address] othiazid 18:57: [facility] (MICARDIS 14 daily. l HCT) 80-12.5 mg per tablet lactulose 2017-0 Yes 30g Q.5D Take 30 g [facility] 10 gram/15 7-[address] mL (15 mL) 18:57: (two) Hospit a solution 14 times a l day. 3 Tbsp BID aspirin 2016-0 Yes 81mg QD Take 81 mg [facility] (ECOTRIN) 7-[address] 81 MG 18:57: daily. [facility] 14 l coated tablet pravastatin 20170 Yes 20mg QD Take 20 mg [facility] (PRAVACHOL) 7-[address] 20 MG 18:57: nightly. [facility]osp[facility] tablet 14 l coenzyme 2017-0 Yes 200mg QD Take 200 [facility] Q10 200 mg 7-[address] capsule 18:57: [facility] 14 nightly. l FOLIC 2017-0 Yes 1{tbl} QD Take 1 [facility] ACID/MULTIV 7-[address] IT-MIN/LUTE 18:57: [facility] (CENTRUM 14 daily. l SILVER ORAL) cholecalcif 2017 Yes 1000U QD Take 1,000 [facility]ory, 7-[address] vitamin D3, 18:57: [facility] (VITAMIN 14 daily. l D3) 1,000 unit tablet OMEGA-3 Yes 1200mg QD Take 1,200 [facility] FATTY ACIDS 7-[address] (FISH OIL 18:57: mouth [facility] CONCENTRATE 14 daily. l ORAL) ALPRAZolam Yes .25mg QD Take 0.25 [facility] (XANAX) 7-[address] 0.25 MG 18:57: [facility] tablet 14 nightly as l needed for anxiety. telmisartan Yes 1{tbl} QD Take 1 [facility] -hydrochlor 7-[address] othiazid 18:57: [facility] (MICARDIS 14 daily. l HCT) 80-12.5 mg per tablet lactulose 0 Yes 30g Q.5D Take 30 g [facility] 10 gram/15 7-[address] mL (15 mL) 18:57: (two) Hospit a solution 14 times a l day. 3 Tbsp BID aspirin 2017-0 Yes 81mg QD Take 81 mg [facility] (ECOTRIN) 7-[address] 81 MG 18:57: daily. [facility] 14 l coated tablet pravastatin 2017-0 Yes 20mg QD Take 20 mg [facility] (PRAVACHOL) 7-[address] 20 MG 18:57: nightly. [facility]osp[facility] tablet 14 l coenzyme 2017-0 Yes 200mg QD Take 200 [facility] Q10 200 mg 7-[address] capsule 18:57: [facility] 14 nightly. l FOLIC 2017- Yes 1{tbl} QD Take 1 [facility] ACID/MULTIV 7-[address] IT-MIN/LUTE 18:57: [facility] IN (CENTRUM 14 daily. l SILVER ORAL) cholecalcif 20170 Yes 1000U QD Take 1,000 [facility], 7-[address] vitamin D3, 18:57: [facility] (VITAMIN 14 daily. l D3) 1,000 unit tablet OMEGA-3 Yes 1200mg QD Take 1,200 [facility] FATTY ACIDS 7-[address] (FISH OIL 18:57: mouth [facility] CONCENTRATE 14 daily. l ORAL) ALPRAZolam 20170 Yes .25mg QD Take 0.25 [facility] (XANAX) 7-[address] 0.25 MG 18:57: [facility] 14 nightly as l needed for anxiety. telmisartan Yes 1{tbl} QD Take 1 [facility] -hydrochlor 7-[address] othiazid 18:57: [facility] (MICARDIS 14 daily. l HCT) 80-12.5 mg per tablet lactulose 0 Yes 30g Q.5D Take 30 g [facility] 10 gram/15 7-[address] mL (15 mL) 18:57: (two) [facility] solution 14 times a l day. 3 Tbsp BID aspirin Yes 81mg QD Take 81 mg [facility] (ECOTRIN) 7-[address] 81 MG 18:57: daily. [facility] enteric 14 l coated tablet pravastatin Yes 20mg QD Take 20 mg [facility] (PRAVACHOL) 7-[address] 20 MG 18:57: nightly. [facility] tablet 14 l coenzyme 20170 Yes 200mg QD Take 200 [facility] Q10 200 mg 7-[address] capsule 18:57: [facility] 14 nightly. l FOLIC 2017-0 Yes 1{tbl} QD Take 1 [facility] ACID/MULTIV 7-[address] IT-MIN/LUTE 18:57: [facility] IN (CENTRUM 14 daily. l SILVER ORAL) cholecalcif 20170 Yes 1000U QD Take 1,000 [facility] cory, 7-[address] vitamin D3, 18:57: [facility] (VITAMIN 14 daily. l D3) 1,000 unit tablet OMEGA-3 0 Yes 1200mg QD Take 1,200 [facility] FATTY ACIDS 7-[address] (FISH OIL 18:57: [facility] CONCENTRATE 14 daily. l ORAL) ALPRAZolam 20170 Yes .25mg QD Take 0.25 [facility] (XANAX) 7-[address] 0.25 MG 18:57: [facility] tablet 14 nightly as l needed for anxiety. telmisartan Yes 1{tbl} QD Take 1 [facility] -hydrochlor 7-[address] othiazid 18:57: [facility] (MICARDIS 14 daily. l HCT) 80-12.5 mg per tablet lactulose 2017 Yes 30g Q.5D Take 30 g [facility] 10 gram/15 7-[address] mL (15 mL) 18:57: (two) [facility] 14 times a l day. 3 Tbsp BID aspirin Yes 81mg QD Take 81 mg [facility] (ECOTRIN) 7-[address] 81 MG 18:57: daily. [facility] enteric 14 l coated tablet pravastatin Yes 20mg QD Take 20 mg [facility] (PRAVACHOL) 7-[address] 20 MG 18:57: nightly. [facility] tablet 14 l coenzyme Yes 200mg QD Take 200 [facility] Q10 200 mg 7-[address] capsule 18:57: [facility] 14 nightly. l FOLIC 2016-0 Yes 1{tbl} QD Take 1 [facility] ACID/MULTIV 7-[address] IT-MIN/LUTE 18:57: [facility] (CENTRUM 14 daily. l SILVER ORAL) cholecalcif Yes 1000U QD Take 1,000 [facility] cory, 7-[address] vitamin D3, 18:57: [facility] (VITAMIN 14 daily. l D3) 1,000 unit tablet OMEGA-3 Yes 1200mg QD Take 1,200 [facility] FATTY ACIDS 7-[address] (FISH OIL 18:57: [facility] CONCENTRATE 14 daily. l ORAL) ALPRAZolam 0 Yes .25mg QD Take 0.25 [facility] (XANAX) 7-[address] 0.25 MG 18:57: [facility] tablet 14 nightly as l needed for anxiety. telmisartan 0 Yes 1{tbl} QD Take 1 [facility] -hydrochlor 7-[address] othiazid 18:57: [facility] (MICARDIS 14 daily. l HCT) 80-12.5 mg per tablet lactulose 20170 Yes 30g Q.5D Take 30 g [facility] 10 gram/15 7-[address] mL (15 mL) 18:57: (two) [facility] 14 times a l day. 3 Tbsp BID aspirin 20170 Yes 81mg QD Take 81 mg [facility] (ECOTRIN) 7-[address] 81 MG 18:57: daily. [facility] enter[facility] 14 l coated tablet pravastatin Yes 20mg QD Take 20 mg [facility] (PRAVACHOL) 7-[address] 20 MG 18:57: nightly. [facility] tablet 14 l coenzyme Yes 200mg QD Take 200 [facility] Q10 200 mg 7-[address] capsule 18:57: [facility] 14 nightly. l FOLIC Yes 1{tbl} QD Take 1 [facility] ACID/MULTIV 7-[address] IT-MIN/LUTE 18:57: [facility] (CENTRUM 14 daily. l SILVER ORAL) cholecalcif Yes 1000U QD Take 1,000 [facility] cory, 7-[address] vitamin D3, 18:57: [facility] (VITAMIN 14 daily. l D3) 1,000 unit tablet OMEGA-3 Yes 1200mg QD Take 1,200 [facility] FATTY ACIDS 7-[address] (FISH OIL 18:57: [facility] CONCENTRATE 14 daily. l ORAL) ALPRAZolam 20170 Yes .25mg QD Take 0.25 [facility] (XANAX) 7-[address] 0.25 MG 18:57: [facility] tablet 14 nightly as l needed for anxiety. telmisartan Yes 1{tbl} QD Take 1 [facility] -hydrochlor 7-[address] othiazid 18:57: [facility] (MICARDIS 14 daily. l HCT) 80-12.5 mg per tablet lactulose 0 Yes 30g Q.5D Take 30 g [facility] 10 gram/15 7-[address] mL (15 mL) 18:57: (two) [facility] 14 times a l day. 3 Tbsp BID aspirin 2017-0 Yes 81mg QD Take 81 mg [facility] (ECOTRIN) 7-[address] 81 MG 18:57: daily. [facility] enteric 14 l coated tablet pravastatin 20170 Yes 20mg QD Take 20 mg [facility] (PRAVACHOL) 7-[address] 20 MG 18:57: nightly. [facility] tablet 14 l coenzyme 2017-0 Yes 200mg QD Take 200 [facility] Q10 200 mg 7-[address] capsule 18:57: [facility] 14 nightly. l FOLIC 2017-0 Yes 1{tbl} QD Take 1 [facility] ACID/MULTIV 7-[address] IT-MIN/LUTE 18:57: [facility] (CENTRUM 14 daily. l SILVER ORAL) cholecalcif Yes 1000U QD Take 1,000 [facility] cory, 7-[address] vitamin D3, 18:57: [facility] (VITAMIN 14 daily. l D3) 1,000 unit tablet OMEGA-3 Yes 1200mg QD Take 1,200 [facility] FATTY ACIDS 7-[address] (FISH OIL 18:57: [facility] CONCENTRATE 14 daily. l ORAL) ALPRAZolam 0 Yes .25mg QD Take 0.25 [facility] (XANAX) 7-[address] 0.25 MG 18:57: [facility] tablet 14 nightly as l needed for anxiety. telmisartan Yes 1{tbl} QD Take 1 [facility] -hydrochlor 7-[address] othiazid 18:57: [facility] (MICARDIS 14 daily. l HCT) 80-12.5 mg per tablet lactulose 20170 Yes 30g Q.5D Take 30 g [facility] 10 gram/15 7-[address] mL (15 mL) 18:57: (two) [facility] 14 times a l day. 3 Tbsp BID aspirin 2016-0 Yes 81mg QD Take 81 mg [facility] (ECOTRIN) 7-[address] 81 MG 18:57: daily. [facility] enteric 14 l coated tablet pravastatin 2017-0 Yes 20mg QD Take 20 mg [facility] (PRAVACHOL) 7-[address] 20 MG 18:57: nightly. [facility] tablet 14 l coenzyme 2017-0 Yes 200mg QD Take 200 [facility] Q10 200 mg 7-[address] capsule 18:57: [facility] 14 nightly. l FOLIC 2017-0 Yes 1{tbl} QD Take 1 [facility] ACID/MULTIV 7-[address] IT-MIN/LUTE 18:57: [facility] (CENTRUM 14 daily. l SILVER ORAL) cholecalcif 2017 Yes 1000U QD Take 1,000 [facility] cory, 7-[address] vitamin D3, 18:57: [facility] (VITAMIN 14 daily. l D3) 1,000 unit tablet OMEGA-3 Yes 1200mg QD Take 1,200 [facility] FATTY ACIDS 7-[address] (FISH OIL 18:57: [facility] CONCENTRATE 14 daily. l ORAL) ALPRAZolam Yes .25mg QD Take 0.25 [facility] (XANAX) 7-[address] 0.25 MG 18:57: [facility] tablet 14 nightly as l needed for anxiety. telmisartan Yes 1{tbl} QD Take 1 [facility] -hydrochlor 7-[address] othiazid 18:57: [facility] (MICARDIS 14 daily. l HCT) 80-12.5 mg per tablet lactulose 0 Yes 30g Q.5D Take 30 g [facility] 10 gram/15 7-[address] mL (15 mL) 18:57: (two) [facility] 14 times a l day. 3 Tbsp BID aspirin 2017-0 Yes 81mg QD Take 81 mg [facility] (ECOTRIN) 7-[address] 81 MG 18:57: daily. [facility] enter[facility] 14 l coated tablet pravastatin 2017-0 Yes 20mg QD Take 20 mg [facility] (PRAVACHOL) 7-[address] 20 MG 18:57: nightly. [facility] tablet 14 l coenzyme 2017-0 Yes 200mg QD Take 200 [facility] Q10 200 mg 7-[address] capsule 18:57: [facility] 14 nightly. l FOLIC 2017-0 Yes 1{tbl} QD Take 1 [facility] ACID/MULTIV 7-[address] IT-MIN/LUTE 18:57: [facility] (CENTRUM 14 daily. l SILVER ORAL) cholecalcif Yes 1000U QD Take 1,000 [facility] cory, 7-[address] vitamin D3, 18:57: [facility] (VITAMIN 14 daily. l D3) 1,000 unit tablet OMEGA-3 Yes 1200mg QD Take 1,200 [facility] FATTY ACIDS 7-[address] (FISH OIL 18:57: [facility] CONCENTRATE 14 daily. l ORAL) ALPRAZolam Yes .25mg QD Take 0.25 [facility] (XANAX) 7-[address] 0.25 MG 18:57: [facility] tablet 14 nightly as l needed for anxiety. telmisartan Yes 1{tbl} QD Take 1 [facility] -hydrochlor 7-[address] othiazid 18:57: [facility] (MICARDIS 14 daily. l HCT) 80-12.5 mg per tablet lactulose Yes 30g Q.5D Take 30 g [facility] 10 gram/15 7-[address] mL (15 mL) 18:57: (two) Hospit a solution 14 times a l day. 3 Tbsp BID Immunizations Ordered Filled Immunization Date Status Comments [facility] e Immunization Name Name SARS-COV-2 COVID-19 2022-07-23 Completed [facility] [place] [facility] BIVALENT 0.3ML, IM, (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) SARS-COV-2 COVID-19 2022-07-23 Completed [facility] 00:00[facility]00 [place] [facility] 12 Y[facility] BIVALENT 0.3ML, IM, (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) SARS-COV-2 COVID-19 2022-07-23 Completed [facility] 00:00:00 [facility] 12 Y[facility]+, [facility] BIVALENT 0.3ML, IM, (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) SARS-COV-2 COVID-19 2022-07-23 Completed [facility] [place] 00:00:00 [place] [facility] 12 Y[facility]+, [facility] BIVALENT 0.3ML, IM, (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) SARS-COV-2 COVID-19 2022-07-23 Completed [facility] [place] 00:00:00 [place] [facility] 12 Y[facility]+, [facility] BIVALENT 0.3ML, IM, (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) SARS-COV-2 COVID-19 2022-07-23 Completed [facility] [place] 00:00:00 [facility] 12 Y[facility]+, [facility] BIVALENT 0.3ML, IM, (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) SARS-COV-2 COVID-19 2022-07-23 Completed [facility] [place] 00:00:00 [facility] 12 Y[facility]+, [facility] BIVALENT 0.3ML, IM, (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) SARS-COV-2 COVID-19 2022-07-23 Completed [facility] [place] 00:00:00 [facility] 12 Y[facility]+, [facility] BIVALENT 0.3ML, IM, (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) SARS-COV-2 COVID-19 2022-07-23 Completed [facility] [place] 00:00:00 [place] [facility] 12 Y[facility]+, [facility] BIVALENT 0.3ML, IM, (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) SARS-COV-2 COVID-19 2022-07-23 Completed [facility] [place] 00:00:00 [place] [facility] 12 Y[facility]+, [facility] BIVALENT 0.3ML, IM, (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) SARS-COV-2 COVID-19 2022-07-23 Completed [facility] [place] 00:00:00 [place] [facility] 12 Y[facility]+, [facility] BIVALENT 0.3ML, IM, (PFIZER OLIVARES TOP) SARS-COV-2 COVID-19 2022-07-23 Completed [facility] [place] 00:00:00 [facility] BIVALENT 0.3ML, IM, (PFIZER OLIVARES TOP) Influenza High Dose 2022-05-10 Completed [facility] 00[facility]:00 [facility] Influenza High Dose 2022-05-10 Completed [facility] 00:00:00 [facility] Influenza High Dose 2022-05-10 Completed [facility] 00:00:00 [facility] Influenza High Dose 2022-05-10 Completed [facility] 00:00:00 [facility] Influenza High Dose 2022-05-10 Completed [facility] 00:00:00 [facility] Influenza High Dose 2022-05-10 Completed [facility] 00:00:00 [facility] Influenza High Dose 2022-05-10 Completed [facility] 00:00:00 [facility] SARS-COV-2 COVID-19 2022-01-25 Completed [facility] [place] 00:00:00 [facility] VACCINE (OLIVARES TOP) Branch SARS-COV-2 COVID-19 2022-01-25 Completed [facility] [place] 00:00:00 [facility] V[facility]INE (OLIVARES TOP) Branch SARS-COV-2 COVID-19 2022-01-25 Completed [facility] [place] 00:00:00 [facility] VACCINE (OLIVARES TOP) Branch SARS-COV-2 COVID-19 2022-01-25 Completed [facility] [place] 00:00:00 [facility] V[facility]INE (OLIVARES TOP) Branch SARS-COV-2 COVID-19 2022-01-25 Completed [facility] [place] 00:00:00 [facility] V[facility]INE (OLIVARES TOP) Branch SARS-COV-2 COVID-19 2022-01-25 Completed [facility] [place] 00:00:00 [facility]INE (OLIVARES TOP) Branch SARS-COV-2 COVID-19 2022-01-25 Completed [facility] [place] 00:00:00 [facility]INE (OLIVARES TOP) Branch SARS-COV-2 COVID-19 2022-01-25 Completed [facility] [place] 00:00:00 [facility]INE (OLIVARES TOP) Branch SARS-COV-2 COVID-19 2022-01-25 Completed [facility] [place] 00:00:00 [facility] V[facility]INE (OLIVARES TOP) Branch SARS-COV-2 COVID-19 2022-01-25 Completed [facility] [place] 00:00:00 [facility] VACCINE (OLIVARES TOP) Branch SARS-COV-2 COVID-19 2022-01-25 Completed [facility] [place] 00:00:00 [facility] VACCINE (OLIVARES TOP) Branch SARS-COV-2 COVID-19 2022-01-25 Completed [facility] [place] 00:00:00 [facility] VACCINE (OLIVARES TOP) Branch SARS-COV-2 COVID-19 2022-01-25 Completed [facility] [place] 00:00:00 [facility] VACCINE (OLIVARES TOP) Branch SARS-COV-2 COVID-19 2022-01-25 Completed [facility] [place] 00:00:00 [facility] VACCINE (OLIVARES TOP) Branch SARS-COV-2 COVID-19 2022-01-25 Completed [facility] [place] 00:00:00 [facility] VACCINE (OLIVARES TOP) Branch SARS-COV-2 COVID-19 2022-01-25 Completed [facility] [place] 00:00:00 [facility] VACCINE (OLIVARES TOP) Branch SARS-COV-2 COVID-19 2022-01-25 Completed [facility] [place] 00:00:00 [facility] VACCINE (OLIVARES TOP) Branch SARS-COV-2 COVID-19 2022-01-25 Completed [facility] [place] 00:00:00 [facility] V[facility]INE (OLIVARES TOP) Branch SARS-COV-2 COVID-19 2022-01-25 Completed [facility] [place] 00:00:00 [facility] VACCINE (OLIVARES TOP) Branch SARS-COV-2 COVID-19 2022-01-25 Completed [facility] [place] 00:00:00 [facility] VACCINE (OLIVARES TOP) Branch SARS-COV-2 COVID-19 2022-01-25 Completed [facility] [place] 00:00:00 [facility] V[facility]INE (OLIVARES TOP) Branch SARS-COV-2 COVID-19 2022-01-25 Completed [facility] [place] 00:00:00 [facility] VACCINE (OLIVARES TOP) Branch SARS-COV-2 COVID-19 2022-01-25 Completed [facility] [place] 00:00:00 [facility] V[facility]INE (OLIVARES TOP) Branch SARS-COV-2 COVID-19 2022-01-25 Completed [facility] 00:00:00 [facility] VACCINE (OLIVARES TOP) Branch SARS-COV-2 COVID-19 2022-01-25 Completed [facility] 00:00:00 [facility] VACCINE (OLIVARES TOP) Branch SARS-COV-2 COVID-19 2022-01-25 Completed [facility] 00:00:00 [facility] VACCINE (OLIVARES TOP) Branch SARS-COV-2 COVID-19 2022-01-25 Completed [facility] [place] 00:00:00 [facility] VACCINE (OLIVARES TOP) Branch SARS-COV-2 COVID-19 2022-01-25 Completed [facility] 00:00:00 [facility] VACCINE (OLIVARES TOP) Branch SARS-COV-2 COVID-19 2022-01-25 Completed [facility] 00:00:00 [facility] VACCINE (OLIVARES TOP) Branch SARS-COV-2 COVID-19 2022-01-25 Completed [facility] [place] 00:00:00 [facility] VACCINE (OLIVARES TOP) Branch SARS-COV-2 COVID-19 2022-01-25 Completed [facility] 00:00:00 [facility] V[facility]INE (OLIVARES TOP) Branch SARS-COV-2 COVID-19 2022-01-25 Completed [facility] 00:00:00 [facility] VACCINE (OLIVARES TOP) Branch SARS-COV-2 COVID-19 2022-01-25 Completed [facility] 00:00:00 [facility] VACCINE (OLIVARES TOP) Branch SARS-COV-2 COVID-19 2022-01-25 Completed [facility] 00:00:00 [facility] VACCINE (OLIVARES TOP) Branch SARS-COV-2 COVID-19 2022-01-25 Completed [facility] 00:00:00 [facility] VACCINE (OLIVARES TOP) Branch SARS-COV-2 COVID-19 2022-01-25 Completed [facility] 00:00:00 [facility] V[facility]INE (OLIVARES TOP) Branch SARS-COV-2 COVID-19 2022-01-25 Completed [facility] [place] 00:00:00 [facility] VACCINE (OLIVARES TOP) Branch Influenza High Dose 2021-05-22 Completed [facility] 00:00:00 [facility] Influenza High Dose 2021-05-22 Completed [facility] 00:00:00 [facility] Influenza High Dose 2021-05-22 Completed [facility] 00:00:00 [facility] Influenza High Dose 2021-05-22 Completed [facility] 00:00:00 [facility] Influenza High Dose 2021-05-22 Completed [facility] 00:00:00 [facility] Influenza High Dose 2021-05-22 Completed [facility] 00:00:00 [facility] Influenza High Dose 2021-05-22 Completed [facility] 00:00:00 [facility] Influenza High Dose 2021-05-18 Completed [facility] of 00:00:00 [facility] Influenza High Dose 2021-05-18 Completed [facility] of 00:00:00 [facility] Influenza High Dose 2021-05-18 Completed [facility] of 00:00:00 [facility] Influenza High Dose 2021-05-18 Completed [facility] of 00:00:00 [facility] Influenza High Dose 2021-05-18 Completed [facility] of 00:00:00 [facility] Influenza High Dose 2021-05-18 Completed [facility] of 00:00:00 [facility] Influenza High Dose 2021-05-18 Completed [facility] of 00:00:00 [facility] Influenza High Dose 2021-05-18 Completed [facility] of 00:00:00 [facility] Influenza High Dose 2021-05-18 Completed [facility] of 00:00:00 [facility] Influenza High Dose 2021-05-18 Completed [facility] of 00:00:00 [facility] Influenza High Dose 2021-05-18 Completed [facility] of 00:00:00 [facility] Influenza High Dose 2021-05-18 Completed [facility] of 00:00:00 [facility] Influenza High Dose 2021-05-18 Completed [facility] of 00:00:00 [facility] Influenza High Dose 2021-05-18 Completed [facility] of 00:00:00 [facility] Influenza High Dose 2021-05-18 Completed [facility] of 00:00:00 [facility] Influenza High Dose 2021-05-18 Completed [facility] of 00:00:00 [facility] Influenza High Dose 2021-05-18 Completed [facility] of 00:00:00 [facility] Influenza High Dose 2021-05-18 Completed [facility] of 00:00:00 [facility] Influenza High Dose 2021-05-18 Completed [facility] of 00:00:00 [facility] Influenza High Dose 2021-05-18 Completed [facility] of 00:00:00 [facility] Influenza High Dose 2021-05-18 Completed [facility] of 00:00:00 [facility] Influenza High Dose 2021-05-18 Completed [facility] of 00:00:00 [facility] Influenza High Dose 2021-05-18 Completed [facility] of 00:00:00 [facility] Influenza High Dose 2021-05-18 Completed [facility] of 00:00:00 [facility] Influenza High Dose 2021-05-18 Completed [facility] of 00:00:00 [facility] Influenza High Dose 2021-05-18 Completed [facility] of 00:00:00 [facility] Influenza High Dose 2021-05-18 Completed [facility] of 00:00:00 [facility] Influenza High Dose 2021-05-18 Completed [facility] of 00:00:00 [facility] Influenza High Dose 2021-05-18 Completed [facility] of 00:00:00 [facility] Influenza High Dose 2021-05-18 Completed [facility] of 00:00:00 [facility] Influenza High Dose 2021-05-18 Completed [facility] of 00:00:00 [facility] Influenza High Dose 2021-05-18 Completed [facility] of 00:00:00 [facility] Influenza High Dose 2021-05-18 Completed [facility] of 00:00:00 [facility] Influenza High Dose 2021-05-18 Completed [facility] of 00:00:00 [facility] Influenza High Dose 2021-05-18 Completed [facility] of 00:00:00 [facility] Influenza High Dose 2021-05-18 Completed [facility] of 00:00:00 [facility] Influenza High Dose 2021-05-18 Completed [facility] of 00:00:00 [facility] SARS-COV-2 COVID-19 2021-04-17 Completed [facility] of PFIZER VACCINE 00:00:00 [facility] SARS-COV-2 COVID-19 2021-04-17 Completed [facility] of PFIZER VACCINE 00:00:00 [facility] SARS-COV-2 COVID-19 2021-04-17 Completed [facility] of PFIZER VACCINE 00:00:00 [facility] SARS-COV-2 COVID-19 2021-04-17 Completed [facility] of PFIZER VACCINE 00:00:00 [facility] SARS-COV-2 COVID-19 2021-04-17 Completed [facility] of PFIZER VACCINE 00:00:00 [facility] SARS-COV-2 COVID-19 2021-04-17 Completed [facility] of PFIZER VACCINE 00:00:00 [facility] SARS-COV-2 COVID-19 2021-04-17 Completed [facility] of PFIZER VACCINE 00:00:00 [facility] SARS-COV-2 COVID-19 2021-04-17 Completed [facility] of PFIZER VACCINE 00:00:00 [facility] SARS-COV-2 COVID-19 2021-04-17 Completed [facility] of PFIZER VACCINE 00:00:00 [facility] SARS-COV-2 COVID-19 2021-04-17 Completed [facility] of PFIZER VACCINE 00:00:00 [facility] SARS-COV-2 COVID-19 2021-04-17 Completed [facility] of PFIZER VACCINE 00:00:00 [facility] SARS-COV-2 COVID-19 2021-04-17 Completed [facility] of PFIZER VACCINE 00:00:00 [facility] SARS-COV-2 COVID-19 2021-04-17 Completed [facility] of PFIZER VACCINE 00:00:00 [facility] SARS-COV-2 COVID-19 2021-04-17 Completed [facility] of PFIZER VACCINE 00:00:00 [facility] SARS-COV-2 COVID-19 2021-04-17 Completed [facility] of PFIZER VACCINE 00:00:00 [facility] SARS-COV-2 COVID-19 2021-04-17 Completed [facility] of PFIZER VACCINE 00:00:00 [facility] SARS-COV-2 COVID-19 2021-04-17 Completed [facility] of PFIZER VACCINE 00:00:00 [facility] SARS-COV-2 COVID-19 2021-04-17 Completed [facility] of PFIZER VACCINE 00:00:00 [facility] SARS-COV-2 COVID-19 2021-04-17 Completed [facility] of PFIZER VACCINE 00:00:00 [facility] SARS-COV-2 COVID-19 2021-04-17 Completed [facility] of PFIZER VACCINE 00:00:00 [facility] SARS-COV-2 COVID-19 2021-04-17 Completed [facility] of PFIZER VACCINE 00:00:00 [facility] SARS-COV-2 COVID-19 2021-04-17 Completed [facility] of PFIZER VACCINE 00:00:00 [facility] SARS-COV-2 COVID-19 2021-04-17 Completed [facility] of PFIZER VACCINE 00:00:00 [facility] SARS-COV-2 COVID-19 2021-04-17 Completed [facility] of PFIZER VACCINE 00:00:00 [facility] SARS-COV-2 COVID-19 2021-04-17 Completed [facility] of PFIZER VACCINE 00:00:00 [facility] SARS-COV-2 COVID-19 2021-04-17 Completed [facility] of PFIZER VACCINE 00:00:00 [facility] SARS-COV-2 COVID-19 2021-04-17 Completed [facility] of PFIZER VACCINE 00:00:00 [facility] SARS-COV-2 COVID-19 2021-04-17 Completed [facility] of PFIZER VACCINE 00:00:00 [facility] SARS-COV-2 COVID-19 2021-04-17 Completed [facility] of PFIZER VACCINE 00:00:00 [facility] SARS-COV-2 COVID-19 2021-04-17 Completed [facility] of PFIZER VACCINE 00:00:00 [facility] SARS-COV-2 COVID-19 2021-04-17 Completed [facility] PFIZER VACCINE 00:00:00 [facility] SARS-COV-2 COVID-19 2021-04-17 Completed [facility] PFIZER VACCINE 00:00:00 [facility] SARS-COV-2 COVID-19 2021-04-17 Completed [facility] PFIZER VACCINE 00:00:00 [facility] SARS-COV-2 COVID-19 2021-04-17 Completed [facility] PFIZER VACCINE 00:00:00 [facility] SARS-COV-2 COVID-19 2021-04-17 Completed [facility] PFIZER VACCINE 00:00:00 [facility] SARS-COV-2 COVID-19 2021-04-17 Completed [facility] PFIZER VACCINE 00:00:00 [facility] SARS-COV-2 COVID-19 2021-04-17 Completed [facility] PFIZER VACCINE 00:00:00 [facility] Pfizer COVID-19 2021-04-17 Completed Vaccine 00:00:00 influenza, 2021-04-17 Completed high-dose, 00:00:00 quadrivalent Pfizer COVID-19 2021-04-17 Completed Vaccine 00:00:00 influenza, 2021-04-17 Completed high-dose, 00:00:00 quadrivalent Pfizer COVID-19 2021-04-17 Completed Vaccine 00:00:00 influenza, 2021-04-17 Completed high-dose, 00:00:00 quadrivalent SARS-COV-2 COVID-19 2020-08-30 Completed [facility] PFIZER VACCINE 00:00:00 [facility] SARS-COV-2 COVID-19 2020-08-30 Completed [facility] PFIZER VACCINE 00:00:00 [facility] SARS-COV-2 COVID-19 2020-08-30 Completed Unive rsity of PFIZER VACCINE 00:00:00 [facility] SARS-COV-2 COVID-19 2020-08-30 Completed Unive rsity of PFIZER VACCINE 00:00:00 [facility] SARS-COV-2 COVID-19 2020-08-30 Completed [facility]ity of PFIZER VACCINE 00:00:00 [facility] SARS-COV-2 COVID-19 2020-08-30 Completed [facility] PFIZER VACCINE 00:00:00 [facility] SARS-COV-2 COVID-19 2020-08-30 Completed [facility] of PFIZER VACCINE 00:00:00 [facility] SARS-COV-2 COVID-19 2020-08-30 Completed [facility]ive rsity of PFIZER VACCINE 00:00:00 [facility] SARS-COV-2 COVID-19 2020-08-30 Completed [facility]ive rsity of PFIZER VACCINE 00:00:00 [facility] SARS-COV-2 COVID-19 2020-08-30 Completed [facility]ive [facility]ity of PFIZER VACCINE 00:00:00 [facility] SARS-COV-2 COVID-19 2020-08-30 Completed [facility] of PFIZER VACCINE 00:00:00 [facility] SARS-COV-2 COVID-19 2020-08-30 Completed [facility] of PFIZER VACCINE 00:00:00 [facility] SARS-COV-2 COVID-19 2020-08-30 Completed [facility] of PFIZER VACCINE 00:00:00 [facility] SARS-COV-2 COVID-19 2020-08-30 Completed [facility] of PFIZER VACCINE 00:00:00 [facility] SARS-COV-2 COVID-19 2020-08-30 Completed [facility] of PFIZER VACCINE 00:00:00 [facility] SARS-COV-2 COVID-19 2020-08-30 Completed [facility] of PFIZER VACCINE 00:00:00 [facility] SARS-COV-2 COVID-19 2020-08-30 Completed [facility] of PFIZER VACCINE 00:00:00 [facility] SARS-COV-2 COVID-19 2020-08-30 Completed [facility] of PFIZER VACCINE 00:00:00 [facility] SARS-COV-2 COVID-19 2020-08-30 Completed [facility] of PFIZER VACCINE 00:00:00 [facility] SARS-COV-2 COVID-19 2020-08-30 Completed [facility] of PFIZER VACCINE 00:00:00 [facility] SARS-COV-2 COVID-19 2020-08-30 Completed [facility] of PFIZER VACCINE 00:00:00 [facility] SARS-COV-2 COVID-19 2020-08-30 Completed [facility] of PFIZER VACCINE 00:00:00 [facility] SARS-COV-2 COVID-19 2020-08-30 Completed [facility] of PFIZER VACCINE 00:00:00 [facility] SARS-COV-2 COVID-19 2020-08-30 Completed [facility] of PFIZER VACCINE 00:00:00 [facility] SARS-COV-2 COVID-19 2020-08-30 Completed [facility] of PFIZER VACCINE 00:00:00 [facility] SARS-COV-2 COVID-19 2020-08-30 Completed [facility] of PFIZER VACCINE 00:00:00 [facility] SARS-COV-2 COVID-19 2020-08-30 Completed [facility] of PFIZER VACCINE 00:00:00 [facility] SARS-COV-2 COVID-19 2020-08-30 Completed [facility] of PFIZER VACCINE 00:00:00 [facility] SARS-COV-2 COVID-19 2020-08-30 Completed [facility] of PFIZER VACCINE 00:00:00 [facility] SARS-COV-2 COVID-19 2020-08-30 Completed [facility] of PFIZER VACCINE 00:00:00 [facility] SARS-COV-2 COVID-19 2020-08-30 Completed [facility] of PFIZER VACCINE 00:00:00 [facility] SARS-COV-2 COVID-19 2020-08-30 Completed [facility] of PFIZER VACCINE 00:00:00 [facility] SARS-COV-2 COVID-19 2020-08-30 Completed [facility] of PFIZER VACCINE 00:00:00 [facility] SARS-COV-2 COVID-19 2020-08-30 Completed [facility] of PFIZER VACCINE 00:00:00 [facility] SARS-COV-2 COVID-19 2020-08-30 Completed [facility] of PFIZER VACCINE 00:00:00 [facility] SARS-COV-2 COVID-19 2020-08-30 Completed [facility] of PFIZER VACCINE 00:00:00 [facility] SARS-COV-2 COVID-19 2020-08-30 Completed [facility] of PFIZER VACCINE 00:00:00 [facility] Pfizer COVID-19 2020-08-30 Completed Vaccine 00:00:00 Pfizer COVID-19 2020-08-30 Completed Vaccine 00:00:00 Pfizer COVID-19 2020-08-30 Completed Vaccine 00:00:00 SARS-COV-2 COVID-19 2020-08-09 Completed [facility] of PFIZER VACCINE 00:00:00 [facility] SARS-COV-2 COVID-19 2020-08-09 Completed [facility] of PFIZER VACCINE 00:00:00 [facility] SARS-COV-2 COVID-19 2020-08-09 Completed [facility] of PFIZER VACCINE 00:00:00 [facility] SARS-COV-2 COVID-19 2020-08-09 Completed [facility] of PFIZER VACCINE 00:00:00 [facility] SARS-COV-2 COVID-19 2020-08-09 Completed [facility] of PFIZER VACCINE 00:00:00 [facility] SARS-COV-2 COVID-19 2020-08-09 Completed [facility] of PFIZER VACCINE 00:00:00 [facility] SARS-COV-2 COVID-19 2020-08-09 Completed [facility] of PFIZER VACCINE 00:00:00 [facility] SARS-COV-2 COVID-19 2020-08-09 Completed [facility] of PFIZER VACCINE 00:00:00 [facility] SARS-COV-2 COVID-19 2020-08-09 Completed [facility] of PFIZER VACCINE 00:00:00 [facility] SARS-COV-2 COVID-19 2020-08-09 Completed [facility] of PFIZER VACCINE 00:00:00 [facility] SARS-COV-2 COVID-19 2020-08-09 Completed [facility] of PFIZER VACCINE 00:00:00 [facility] SARS-COV-2 COVID-19 2020-08-09 Completed [facility] of PFIZER VACCINE 00:00:00 [facility] SARS-COV-2 COVID-19 2020-08-09 Completed [facility] of PFIZER VACCINE 00:00:00 [facility] SARS-COV-2 COVID-19 2020-08-09 Completed [facility] of PFIZER VACCINE 00:00:00 [facility] SARS-COV-2 COVID-19 2020-08-09 Completed [facility] of PFIZER VACCINE 00:00:00 [facility] SARS-COV-2 COVID-19 2020-08-09 Completed [facility] of PFIZER VACCINE 00:00:00 [facility] SARS-COV-2 COVID-19 2020-08-09 Completed [facility] of PFIZER VACCINE 00:00:00 [facility] SARS-COV-2 COVID-19 2020-08-09 Completed [facility] of PFIZER VACCINE 00:00:00 [facility] SARS-COV-2 COVID-19 2020-08-09 Completed [facility] of PFIZER VACCINE 00:00:00 [facility] SARS-COV-2 COVID-19 2020-08-09 Completed [facility] of PFIZER VACCINE 00:00:00 [facility] SARS-COV-2 COVID-19 2020-08-09 Completed [facility] of PFIZER VACCINE 00:00:00 [facility] SARS-COV-2 COVID-19 2020-08-09 Completed [facility] of PFIZER VACCINE 00:00:00 [facility] SARS-COV-2 COVID-19 2020-08-09 Completed [facility] of PFIZER VACCINE 00:00:00 [facility] SARS-COV-2 COVID-19 2020-08-09 Completed [facility] of PFIZER VACCINE 00:00:00 [facility] SARS-COV-2 COVID-19 2020-08-09 Completed [facility] of PFIZER VACCINE 00:00:00 [facility] SARS-COV-2 COVID-19 2020-08-09 Completed [facility] of PFIZER VACCINE 00:00:00 [facility] SARS-COV-2 COVID-19 2020-08-09 Completed [facility] of PFIZER VACCINE 00:00:00 [facility] SARS-COV-2 COVID-19 2020-08-09 Completed [facility] of PFIZER VACCINE 00:00:00 [facility] SARS-COV-2 COVID-19 2020-08-09 Completed [facility] of PFIZER VACCINE 00:00:00 [facility] SARS-COV-2 COVID-19 2020-08-09 Completed [facility] of PFIZER VACCINE 00:00:00 [facility] SARS-COV-2 COVID-19 2020-08-09 Completed [facility] of PFIZER VACCINE 00:00:00 [facility] SARS-COV-2 COVID-19 2020-08-09 Completed [facility] of PFIZER VACCINE 00:00:00 [facility] SARS-COV-2 COVID-19 2020-08-09 Completed [facility] of PFIZER VACCINE 00:00:00 [facility] SARS-COV-2 COVID-19 2020-08-09 Completed [facility] of PFIZER VACCINE 00:00:00 [facility] SARS-COV-2 COVID-19 2020-08-09 Completed [facility] of PFIZER VACCINE 00:00:00 [facility] SARS-COV-2 COVID-19 2020-08-09 Completed [facility] of PFIZER VACCINE 00:00:00 [facility] SARS-COV-2 COVID-19 2020-08-09 Completed [facility] of PFIZER VACCINE 00:00:00 [facility] Pfizer COVID-19 2020-08-09 Completed Vaccine 00:00:00 Pfizer COVID-19 2020-08-09 Completed Vaccine 00:00:00 Pfizer COVID-19 2020-08-09 Completed Vaccine 00:00:00 influenza, 2020-06-02 Completed high-dose, 00:00:00 quadrivalent influenza, 2020-06-02 Completed high-dose, 00:00:00 quadrivalent influenza, 2020-06-02 Completed high-dose, 00:00:00 quadrivalent Influenza, 2019-05-18 Completed seasonal, inj 00:00:00 Influenza, 2019-05-18 Completed seasonal, inj 00:00:00 Influenza, 2019-05-18 Completed seasonal, inj 00:00:00 pneumococcal 2017-08-18 Completed polysacchar 00:00:00 pneumococcal 2017-08-18 Completed polysacchar 00:00:00 pneumococcal 2017-08-18 Completed polysacchar 00:00:00 Pneumococcal 2016-08-19 Completed conjugate P 00:00:00 Pneumococcal 2016-08-19 Completed conjugate P 00:00:00 Pneumococcal 2016-08-19 Completed conjugate P 00:00:00 Vital Signs Vital Name Observation Time Observation Value Comments Source Systolic blood 2023-03-24 14:55:00 133 mm[Hg] [facility] Diastolic blood 2023-03-24 14:55:00 82 mm[Hg] [facility] pressure [facility] Heart rate 2023-03-24 14:55:00 69 /min [facility] Body height 2023-03-24 14:55:00 160 cm [facility] Body weight 2023-03-24 14:55:00 58.968 kg [facility] BMI 2023-03-24 14:55:00 23.03 kg/m2 [facility] Oxygen saturation in 2023-03-24 14:55:00 94 /min [facility] blood by [facility] oxim[facility] Systolic blood 2022-11-21 14:58:00 144 mm[Hg] [facility] Diastolic blood 2022-11-21 14:58:00 70 mm[Hg] [facility] Heart rate 2022-11-21 14:58:00 63 /min [facility] Oxygen saturation in 2022-11-21 14:58:00 92 /min [facility] Arterial blood by [facility] Pulse oxim[facility] Respiratory rate 2022-11-21 14:53:00 19 /min [facility] Body height 2022-11-21 14:53:00 160 cm [facility] Body weight 2022-11-21 14:53:00 58.242 kg [facility] BMI 2022-11-21 14:53:00 22.75 kg/m2 [facility] Respiratory rate 2022-11-05 19:18:00 18 /min [facility] Oxygen saturation in 2022-11-05 19:18:00 99 /min [facility] blood by [facility] Pulse oxim[facility] Branch Systolic blood 2022-11-05 16:29:00 159 mm[Hg] [facility] Diastolic blood 2022-11-05 16:29:00 87 mm[Hg] [facility] Heart rate 2022-11-05 16:29:00 67 /min [facility] Body temperature 2022-11-05 16:29:00 36.5 Dior [facility] Body weight 2022-11-05 08:36:00 64.456 kg [facility] BMI 2022-11-05 08:36:00 25.17 kg/m2 [facility] Body height 2022-11-01 01:31:00 160 cm [facility] Body weight 2022-10-16 20:23:00 59.875 kg [facility] BMI 2022-10-16 20:23:00 23.38 kg/m2 [facility] Systolic blood 2022-07-23 15:13:00 125 mm[Hg] [facility] Diastolic blood 2022-07-23 15:13:00 69 mm[Hg] [facility] Heart rate 2022-07-23 15:13:00 65 /min [facility] Body temperature 2022-07-23 15:13:00 35.94 Dior [facility] Respiratory rate 2022-07-23 15:13:00 18 /min [facility] Body height 2022-07-23 15:13:00 160 cm [facility] Body weight 2022-07-23 15:13:00 59.875 kg [facility] BMI 2022-07-23 15:13:00 23.38 kg/m2 [facility] Oxygen saturation in 2022-07-23 15:13:00 97 /min [facility] blood by [facility] Pulse oxim[facility] Branch Systolic blood 2022-04-24 14:11:00 122 mm[Hg] [facility] Diastolic blood 2022-04-24 14:11:00 58 mm[Hg] [facility] Heart rate 2022-04-24 14:11:00 68 /min [facility] Body temperature 2022-04-24 14:11:00 36.06 Dior [facility] Body height 2022-04-24 14:11:00 157.5 cm [facility] Body weight 2022-04-24 14:11:00 59.421 kg [facility] BMI 2022-04-24 14:11:00 23.96 kg/m2 [facility] Oxygen saturation in 2022-04-24 14:11:00 98 /min [facility] blood by [facility] Pulse oximetry Branch BP Systolic 2022-06-12 15:26:00 182 mm[Hg] BP Diastolic 2022-06-12 15:26:00 78 mm[Hg] Weight Measured 2022-06-12 15:26:00 133.20 pounds Height Measured 2022-06-12 15:26:00 62.00 inches Body Temperature 2022-06-12 15:26:00 98.20 degrees Heart Rate 2022-06-12 15:26:00 67.00 /min Respiratory Rate 2022-06-12 15:26:00 BP Systolic 2022-05-30 08:35:00 141 mm[Hg] BP Diastolic 2022-05-30 08:35:00 69 mm[Hg] Weight Measured 2022-05-30 08:35:00 132.80 pounds Height Measured 2022-05-30 08:35:00 62.00 inches Body Temperature 2022-05-30 08:35:00 98.50 degrees Heart Rate 2022-05-30 08:35:00 77.00 /min Respiratory Rate 2022-05-30 08:35:00 BP Systolic 2022-04-29 11:42:00 138 mm[Hg] BP Diastolic 2022-04-29 11:42:00 73 mm[Hg] Weight Measured 2022-04-29 11:42:00 131.80 pounds Height Measured 2022-04-29 11:42:00 62.00 inches Body Temperature 2022-04-29 11:42:00 98.30 degrees Heart Rate 2022-04-29 11:42:00 65.00 /min Respiratory Rate 2022-04-29 11:42:00 BP Systolic 2022-02-06 14:06:00 153 mm[Hg] BP Diastolic 2022-02-06 14:06:00 67 mm[Hg] Weight Measured 2022-02-06 14:06:00 133.00 pounds Height Measured 2022-02-06 14:06:00 62.00 inches Body Temperature 2022-02-06 14:06:00 98.10 degrees Heart Rate 2022-02-06 14:06:00 76.00 /min Respiratory Rate 2022-02-06 14:06:00 BP Systolic 2021-10-24 17:05:00 137 mm[Hg] BP Diastolic 2021-10-24 17:05:00 71 mm[Hg] Weight Measured 2021-10-24 17:05:00 135.60 pounds Height Measured 2021-10-24 17:05:00 62.00 inches Body Temperature 2021-10-24 17:05:00 97.60 degrees Heart Rate 2021-10-24 17:05:00 79.00 /min Respiratory Rate 2021-10-24 17:05:00 BP Systolic 2021-09-17 09:43:00 102 mm[Hg] BP Diastolic 2021-09-17 09:43:00 53 mm[Hg] Weight Measured 2021-09-17 09:43:00 137.40 pounds Height Measured 2021-09-17 09:43:00 62.00 inches Body Temperature 2021-09-17 09:43:00 97.80 degrees Heart Rate 2021-09-17 09:43:00 69.00 /min Respiratory Rate 2021-09-17 09:43:00 BP Systolic 2021-07-25 14:19:00 105 mm[Hg] BP Diastolic 2021-07-25 14:19:00 53 mm[Hg] Weight Measured 2021-07-25 14:19:00 140.80 pounds Height Measured 2021-07-25 14:19:00 62.00 inches Body Temperature 2021-07-25 14:19:00 97.90 degrees Heart Rate 2021-07-25 14:19:00 78.00 /min Respiratory Rate 2021-07-25 14:19:00 BP Systolic 2021-06-27 13:48:00 148 mm[Hg] BP Diastolic 2021-06-27 13:48:00 77 mm[Hg] Weight Measured 2021-06-27 13:48:00 140.80 pounds Height Measured 2021-06-27 13:48:00 62.00 inches Body Temperature 2021-06-27 13:48:00 97.50 degrees Heart Rate 2021-06-27 13:48:00 76.00 /min Respiratory Rate 2021-06-27 13:48:00 BP Systolic 2021-06-19 12:35:00 121 mm[Hg] BP Diastolic 2021-06-19 12:35:00 64 mm[Hg] Weight Measured 2021-06-19 12:35:00 142.80 pounds Height Measured 2021-06-19 12:35:00 62.00 inches Body Temperature 2021-06-19 12:35:00 97.50 degrees Heart Rate 2021-06-19 12:35:00 81.00 /min Respiratory Rate 2021-06-19 12:35:00 BP Systolic 2021-03-19 14:32:00 134 mm[Hg] BP Diastolic 2021-03-19 14:32:00 82 mm[Hg] Weight Measured 2021-03-19 14:32:00 142.00 pounds Height Measured 2021-03-19 14:32:00 62.00 inches Body Temperature 2021-03-19 14:32:00 97.30 degrees Heart Rate 2021-03-19 14:32:00 83.00 /min Respiratory Rate 2021-03-19 14:32:00 BP Systolic 2021-03-06 08:47:00 95 mm[Hg] BP Diastolic 2021-03-06 08:47:00 59 mm[Hg] Weight Measured 2021-03-06 08:47:00 143.60 pounds Height Measured 2021-03-06 08:47:00 62.00 inches Body Temperature 2021-03-06 08:47:00 97.80 degrees Heart Rate 2021-03-06 08:47:00 83.00 /min Respiratory Rate 2021-03-06 08:47:00 16.00 /min BP Systolic 2020-12-05 08:04:00 174 mm[Hg] BP Diastolic 2020-12-05 08:04:00 84 mm[Hg] Weight Measured 2020-12-05 08:04:00 143.00 pounds Height Measured 2020-12-05 08:04:00 62.00 inches Body Temperature 2020-12-05 08:04:00 97.50 degrees Heart Rate 2020-12-05 08:04:00 88.00 /min Respiratory Rate 2020-12-05 08:04:00 Procedures Procedure Date / Time Performing Clinician Source Performed PAMB PATIENT FINANCIAL 2022-11-21 14:40:41 Doctor Unassigned, No [facility] POLICY Name Medical Branch TROPONIN I 2022-11-05 15:54:00 [facility] MAGNESIUM 2022-11-03 09:14:00 [facility] BASIC METABOLIC PANEL 2022-11-03 09:14:00 Shady Smith [facility] (NA, K, CL, CO2, Medical Branch GLUCOSE, BUN, CREATININE, CA) CBC WITH DIFF 2022-11-03 09:14:00 [facility] BASIC METABOLIC PANEL 2022-11-02 10:00:00 Michelle Tellez [facility] (NA, K, CL, CO2, Medical Branch GLUCOSE, BUN, CREATININE, CA) TRANSTHORACIC ECHO (TTE) 2022-11-01 14:25:00 Segundo Schmitt [facility] PNEUMOCOCCAL ANTIGEN 2022-11-01 12:25:00 Segundo Schmitt [facility] PHOSPHORUS 2022-11-01 11:41:00 Segundo Schmitt [facility] MAGNESIUM 2022-11-01 11:41:00 Oskar [facility] TROPONIN I 2022-11-01 11:41[facility] 2022-11-01 11:41:00 Segundo Schmitt [facility] ([id number]) (ALB,T.PRO,BILI [facility] T,BU/BC,ALT,AST,ALK PHOS) BASIC METABOLIC PANEL 2022-11-01 11:41:00 Segundo Schmitt [facility] (NA, K, CL, CO2, Medical Branch GLUCOSE, BUN, CREATININE, CA) CBC WITH DIFF 2022-11-01 11:41:00 Oskar [facility] N-TERMINAL PRO-BNP 2022-11-01 11:41:00 Segundo Schmitt [facility] CRITICAL CARE 2022-10-31 21:46:17 [facility] 2022-10-31 19:18:00 Sohail [facility] RAPID INFLUENZA A/B 2022-10-31 19:18:00 Stevie Sauceda [facility] COVID-19 (ID NOW RAPID 2022-10-31 19:18:00 Stevie Sauceda [facility] TESTING) Medical Branch LAB ONLY COVID 2022-10-31 19:18:00 Stevie Sauceda [facility] INTERPRETATION [facility] CT THORAX W CONTRAST 2022-10-31 18:19:02 Stevie Sauceda [facility] URINALYSIS 2022-10-31 18:06:00 Stevie Sauceda [facility] URINE CULTURE 2022-10-31 18:06:00 Stevie Sauceda [facility] AC PANEL 20 + LACTIC 2022-10-31 17:04:[address] [facility] ACID [facility] XR CHEST 1 VW 2022-10-31 16:47:00 Stevie Sauceda [facility] HB ECG ROUTINE & RHYTHM 2022-10-31 16:38:10 Stevie Sauceda [facility] STRIP [facility] BLOOD CULTURE SCREEN 2022-10-31 16:19:00 Stevie Sauceda [facility] TROPONIN I 2022-10-31 16:19:00 Stevie Sauceda [facility] COMP. METABOLIC PANEL 2022-10-31 16:19:00 Stevie Sauceda [facility] ([id number]) [facility] CBC WITH DIFF 2022-10-31 16:19:00 Stevie Sauceda [facility] N-TERMINAL PRO-BNP 2022-10-31 16:19:00 Stevie Sauceda [facility] CONSENT/REFUSAL FOR 2022-10-31 15:50:51 Doctor Unassigned, No Un [facility] DIAGNOSIS AND TREATMENT Name Medical Branch XR LUMBAR SPINE 2 VW 2022-10-08 21:05:[address] [facility] XR SACRUM AND COCCYX 2022-10-08 21:05:[address] [facility] XR KNEE 3 VW LEFT 2022-10-08 21:05:46 To [facility] SARS-COV-2 COVID-19 2022-07-23 15:58:50 [facility] [place] VACCINE 12 [facility] YRS+, BIVALENT 0.3ML, IM, (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) XR CHEST 2 VW 2022-05-30 16:34:24 Requisition, Paper [facility] ASSIGNMENT OF BENEFITS 2022-05-30 16:09:16 Doctor Unassigned, No [facility] ASSIGNMENT OF BENEFITS 2022-05-20 15:02:25 Doctor Unassigned, No [facility] EXTERNAL PROVIDER - ADC 2022-04-29 05:01:00 Doctor Unassigned, N o [facility] [place] E[facility] 2021-03-06 00:00:00 Plan of Care Planned Activity Planned Date Details Comments Source Goal Plan of Care Note [code = 07252-0] Goal Plan of Care Note [code = 87595-3] Goal Plan of Care Note [code = 66735-6] Goal Plan of Care Note [code = 29266-2] Goal Plan of Care Note [code = 39415-9] Goal Plan of Care Note [code = 94747-8] Goal Plan of Care Note [code = 31715-4] Goal Plan of Care Note [code = 45414-8] Goal Plan of Care Note [code = 43103-7] Goal Plan of Care Note [code = 88077-4] Goal Plan of Care Note [code = 72453-4] Goal Plan of Care Note [code = 09598-3] Goal Plan of Care Note [code = 05226-8] Goal Plan of Care Note [code = 54752-0] Goal Plan of Care Note [code = 10610-3] Goal Plan of Care Note [code = 84722-2] Goal Plan of Care Note [code = 13985-7] Goal Plan of Care Note [code = 33958-8] Goal Plan of Care Note [code = 25292-9] Goal Plan of Care Note [code = 59772-5] Goal Plan of Care Note [code = 78082-1] Goal Plan of Care Note [code = 66055-5] Goal Plan of Care Note [code = 05040-5] Goal Plan of Care Note [code = 96022-3] Goal Plan of Care Note [code = 94837-2] Goal Plan of Care Note [code = 84076-9] Goal Plan of Care Note [code = 85909-1] Goal Plan of Care Note [code = 97090-0] Goal Plan of Care Note [code = 19505-9] Goal Plan of Care Note [code = 74540-8] Goal Plan of Care Note [code = 68965-9] Goal Plan of Care Note [code = 33951-3] Goal Plan of Care Note [code = 93363-8] Goal Plan of Care Note [code = 99809-5] Goal Plan of Care Note [code = 36741-7] Goal Plan of Care Note [code = 38923-2] Goal Plan of Care Note [code = 00294-0] Goal Plan of Care Note [code = 20231-4] Goal Plan of Care Note [code = 73440-8] Goal Plan of Care Note [code = 39484-8] Goal Plan of Care Note [code = 63494-8] Goal Plan of Care Note [code = 12548-1] Goal Plan of Care Note [code = 36216-9] Goal Plan of Care Note [code = 28725-2] Goal Plan of Care Note [code = 09584-5] Goal Plan of Care Note [code = 71366-2] Goal Plan of Care Note [code = 23773-0] Goal Plan of Care Note [code = 87350-7] Goal Plan of Care Note [code = 74411-7] Goal Plan of Care Note [code = 91417-6] Goal Plan of Care Note [code = 25850-4] Goal Plan of Care Note [code = 43462-8] Goal Plan of Care Note [code = 72055-0] Goal Plan of Care Note [code = 94952-4] Goal Plan of Care Note [code = 78121-5] Goal Plan of Care Note [code = 46798-2] Goal Plan of Care Note [code = 19614-5] Goal Plan of Care Note [code = 14907-8] Goal Plan of Care Note [code = 09263-8] Goal Plan of Care Note [code = 23264-5] Goal Plan of Care Note [code = 22958-6] Goal Plan of Care Note [code = 66424-6] Goal Plan of Care Note [code = 21993-3] Goal Plan of Care Note [code = 00292-3] Goal Plan of Care Note [code = 39469-0] Goal Plan of Care Note [code = 94495-8] Goal Plan of Care Note [code = 34103-7] Goal Plan of Care Note [code = 74244-5] Goal Plan of Care Note [code = 71358-9] Goal Plan of Care Note [code = 99356-1] Goal Plan of Care Note [code = 30192-3] Goal Plan of Care Note [code = 97698-8] Goal Plan of Care Note [code = 95052-2] Goal Plan of Care Note [code = 58415-3] Goal Plan of Care Note [code = 59373-9] Goal Plan of Care Note [code = 26765-2] Goal Plan of Care Note [code = 86498-0] Goal Plan of Care Note [code = 85745-5] Goal Plan of Care Note [code = 22853-9] Goal Plan of Care Note [code = 54527-4] Goal Plan of Care Note [code = 52089-7] Goal Plan of Care Note [code = 04591-7] Goal Plan of Care Note [code = 13616-2] Goal Plan of Care Note [code = 27356-2] Goal Plan of Care Note [code = 82038-3] Goal Plan of Care Note [code = 76869-3] Goal Plan of Care Note [code = 59514-3] Goal Plan of Care Note [code = 63502-3] Goal Plan of Care Note [code = 35288-5] Goal Plan of Care Note [code = 24492-6] Goal Plan of Care Note [code = 25772-3] Goal Plan of Care Note [code = 67165-2] Goal Plan of Care Note [code = 13742-7] Goal Plan of Care Note [code = 08722-1] Goal Plan of Care Note [code = 91903-9] Goal Plan of Care Note [code = 66150-7] Goal Plan of Care Note [code = 39427-2] Encounters Start End Encounter Admission Attending Care Care Encounter Source Date/Time Date/Time Type Type Clinicians Facility Department ID 2021-06-18 Emergency [facility] [id number] [facility] Emergency [facility] [id number] Univers 00:51:49 ity [facility] 2023-07-22 2023-07-22 Outpatient R NICK, [facility] [id number] Univers 10:00:00 10:00:00 DAMEON parker [facility] 2023-04-15 2023-04-15 Outpatient R NICK, [facility] [id number] Univers 00:00:00 00:00:00 DAMEON parker [facility] 2023-04-02 2023-04-02 Outpatient SFA FRED [id number] Natanael 13:52:41 13:52:41 0816 F Hankins 2023-03-27 2023-03-27 Outpatient GC_GCBZW_Ka PRIV PRIV [id number] [facility] 00:00:00 00:00:00 diyala_S [id number] Medic al 2023-03-24 2023-03-24 Outpatient R NICK, [facility] [id number] Univers 10:00:00 10:13:33 DAMEON parker [facility] 2023-03-24 2023-03-24 [facility] 1.2.840.114 [id number] Univers 10:00:00 10:13:33 Visit Dameon MENDOSA 350.1.13.10 [facility] [place] [id number] Dc dical [facility] [address] [facility] 2023-03-18 2023-03-18 Outpatient GC_GCBZW_Ka PRIV PRIV [id number] [facility] 00:00:00 00:00:00 diyala_S [id number] Medic al 2023-03-17 2023-03-17 Outpatient GC_GCBZW_Ka PRIV PRIV [id number] [facility] 00:00:00 00:00:00 diyala_S [id number] Medic al 2023-01-27 2023-01-27 Outpatient SFA FRED [id number] Natanael 11:52:48 11:52:48 0612 F Hankins 2022-11-21 2022-11-21 Outpatient R NICK, [facility] [id number] Univers 10:00:00 10:10:41 DAMEON ity o f [facility] 2022-11-21 2022-11-21 Office Nick [facility] 1.2.840.114 [id number] Univers 10:00:00 10:10:41 Visit Dameon MENDOSA 350.1.13.10 ity of [place] [id number] Dc dical [facility] 059 [facility] 2022-11-21 2022-11-21 Orders Doctor JAN 1.2.840.114 [id number] Univers 00:00:00 00:00:00 Only Unassigned, KAYKAY 350.1.13.[address] [place] [facility] 4.2.7.2.686 Naldo as [id number] [facility] [address] 2022-11-11 2022-11-11 Outpatient [facility] [id number] Natanael 15:54:33 15:54:33 0327 F Hankins 2022-11-06 2022-11-06 Transition KURT Raza 1.2.840.114 [id number] Univers 00:00:00 00:00:00 of Care Bhumi IBRAHIM 350.1.13.10 it y of [place] [id number] [facility] [address] 2022-10-31 2022-11-05 Inpatient X LUIS [facility] GOSIA [id number] Univers 10:52:00 16:00:00 SHADY kwon of [facility] 2022-10-31 2022-11-05 [facility] Stevie Sauceda [facility] 1.2.840.1 14 [id number] Univers 10:52:00 16:00:00 Encounter Shady Smith 350.1.13.10 ity of [place] [id number] [facility] [address] 2022-10-28 2022-10-28 Outpatient [facility] [id number] Natanael 11:06:40 11:06:40 0313 F Hankins 2022-10-16 2022-10-16 Outpatient Wily KRISHNA [facility] [id number] Univers 14:30:00 17:19:31 CHRISTOS ity of [facility] 2022-10-16 2022-10-16 Office Krihsna, [facility] 1.2.445.364 [id number] Univers 14:30:00 17:19:31 Visit Christos Reina [facility] 350.1.13.10 it y of [place] 4.2.7.2.686 Naldo as FRANDY?BLEA [phone] Dc roland MARTINEZ [address] [place] [address] MEDICAL OFFICE [facility] 2022-10-09 2022-10-09 Outpatient [facility] [id number] Natanael 15:56:31 15:56:31 0222 F Hankins 2022-10-08 2022-10-08 Outpatient R RADIOLOGY [facility] [id number] Univers 14:46:21 23:59:00 ity [facility] 2022-10-08 2022-10-08 Hospital Radiology [facility] 1.2.840.114 [id number] Univers 14:45:00 23:59:00 Encounter NAVYA 350.1.13.10 ity [facility] 4.2.7.2.686 [facility] [id number] [facility] [address] 2022-09-20 2022-09-20 Outpatient R UNKNOWN, [facility] [id number] Univers 10:22:09 23:59:00 ATTENDING ity [facility] 2022-09-20 2022-09-20 Hospital Unknown, [facility] 1.2.144.643 [id number] Univers 10:22:09 23:59:00 Encounter Attending NAVYA 350.1.13.10 ity [facility] 4.2.7.2.686 [facility] [id number] [facility] [address] 2022-08-05 2022-08-05 Outpatient SFA [facility] [id number] Natanael 10:04:47 10:04:47 1219 F Hankins 2022-07-23 2022-07-23 Outpatient R NICK, [facility] [id number] Univers 10:30:00 10:30:00 DAMEON kwon o f [facility] 2022-07-23 2022-07-23 Imm/Inj Vaccine, Adc Family Medicine [facility] 1.2.840.114 [id number] Univers 10:30:00 10:30:00 Visit Dameon Rosales 350.1.13.10 ity of [place].7.2.[place] [id number] Dc dical NAL 044 [facility] 2022-07-23 2022-07-23 Office [facility] 1.2.840.114 [id number] Univers 09:20:00 09:31:12 Visit Dameon MENDOSA 350.1.13.10 ity [place] 4.2.7.2.[place] [id number] Dc dical NAL 059 [facility] 2022-07-23 2022-07-23 Outpatient R NICK [facility] [id number] Univers 09:20:00 09:20:00 DAMEON ity o f [facility] 2022-07-10 2022-07-10 Ancillary Jolie Perez [facility] 1.2.84 0.114 [id number] [facility] 09:30:00 10:15:00 Visit Christos Krishna 350.1.13.10 ity of [place] 4.2.7.2.[place] [id number] Dc dical NAL 179 [facility] 2022-07-10 2022-07-10 Outpatient R TOMI [facility] [id number] Univers 09:30:00 09:30:00 CHRISTOS ity of [facility] 2022-07-08 2022-07-08 Ancillary Jolie Perez [facility] 1.2.84 0.114 [id number] [facility] 10:15:00 10:53:48 Visit Christos Krishna 350.1.13.10 it[place] 4.[place].2.[place] [id number] Dc dical NAL 179 [facility] 2022-07-05 2022-07-05 Ancillary Jolie Perez [facility] 1.2.84 0.114 [id number] [facility] 13:00:00 13:45:00 Visit Christos Krishna 350.1.13.10 it[place] 4.2.[place].2.[place] 522.0023015 Dc dical NAL [address] [facility] 2022-07-02 2022-07-02 Ancillary Jolie Perez [facility] 1.2.84 0.114 [id number] Univers 15:15:00 16:00:00 Visit Christos Krishna 350.1.13.10 it[place].2.[place] 152.2378851 Dc dical NAL [address] [facility] 2022-06-27 2022-06-27 Ancillary Jolie Perez [facility] 1.2.84 0.114 [id number] [facility] 13:45:00 14:41:05 Visit Christos Krishna 350.1.13.10 it[place].2.[place] [id number] Dc dical NAL [address] [facility] 2022-06-24 2022-06-24 Ancillary Jolie Perez [facility] 1.2.84 0.114 [id number] [facility] 13:45:00 14:30:00 Visit Christos Krishna 350.1.13.10 it[place].2.[place] [id number] Dc dical NAL [address] [facility] 2022-06-19 2022-06-19 Ancillary Jolie Perez [facility] 1.2.84 0.114 [id number] [facility] 16:45:00 16:55:05 Visit Christos Krishna 350.1.13.10 it[place] 4.2.7.2.[place] [id number] Dc dical NAL [address] [facility] 2022-06-17 2022-06-17 Outpatient R TOMI [facility] [id number] Univers 14:30:00 15:30:17 CHRISTOS itfadia of [facility] 2022-06-17 2022-06-17 Ancillary Jolie Perez [facility] 1.2.84 0.114 [id number] [facility] 14:30:00 15:30:17 Visit Christos Krishna 350.1.13.10 it[place].7.2.[place] [id number] Me dical NAL 179 [facility] 2022-06-13 2022-06-13 Ancillary Evangelina Saravia [facility] 1.2.840 .114 [id number] [facility] 13:00:00 13:41:08 Visit Christos Krishna 350.1.13.10 it[place] of [place] 4.2.7.2.[place] [id number] Dc dical NAL 179 [facility] 2022-06-12 2022-06-12 Outpatient [facility] [id number] Natanael 15:17:44 15:17:44 1026 F Brian 2022-06-12 2022-06-12 Outpatient [id number] [id number] 00:00:00 00:00:00 Visit 42dd-4ca2 2dd-4ca2-8 -3s81-235 a30-213685 426hzd5r6 ddc3c0 2022-06-10 2022-06-10 Ancillary Jolie Perez [facility] 1.2.84 0.114 [id number] [facility] 15:15:00 16:08:07 Visit Christos Krishna 350.1.13.10 it[place] 4.[place].2.[place] [id number] Dc dical NAL 179 [facility] 2022-06-06 2022-06-06 Ancillary Jolie Perez [facility] 1.2.84 0.114 [id number] [facility] 13:45:00 14:28:33 Visit Christos Krishna 350.1.13.10 it[place].2.[place].2.[place] [id number] Dc dical NAL 179 [facility] 2022-06-05 2022-06-05 Ancillary Jolie Perez [facility] 1.2.84 0.114 [id number] [facility] 13:45:00 14:30:00 Visit hCristos Krishna 350.1.13.10 it[place] 4.2.[place].2.[place] 486.1982131 Me dical NAL 179 [facility] 2022-05-30 2022-05-30 Outpatient R RADIOLOGY [facility] [id number] Univers 11:09:43 23:59:00 ity of [facility] 2022-05-30 2022-05-30 Hospital Radiology [facility] 1.2.840.114 [id number] Univers 11:00:00 23:59:00 Encounter NAVYA 350.1.13.10 ity of [place].2.[place].2.[place] [id number] [facility] [address] 2022-05-30 2022-05-30 Ancillary Jolie Perez [facility] 1.2.84 0.114 [id number] [facility] 13:45:00 14:30:00 Visit Christos Krishna 350.1.13.10 ity of [place].2.[place] [id number] Dc dical NAL 179 [facility] 2022-05-30 2022-05-30 Outpatient icm2w12i- [id number] af u7i07b-q 00:00:00 00:00:00 Visit m1v5-411d 2i8-786u-z -k79x-ejm 92c-cbc90a 19m35589n 64238c 2022-05-30 2022-05-30 Orders Doctor JAN 1.2.840.[id number] [place] [address] 00:00:00 00:00:00 Only Unassigned, KAYKAY 350.1.13.[address] [place] [facility] 4.2.7.2.686 Naldo as [id number] [facility] [address] 2022-05-27 2022-05-27 Ancillary Jolie Perez [facility] 1.2.84 0.114 [id number] [facility] 13:45:00 14:30:24 Visit Christos Krishna 350.1.13.10 ity of [place].2.[place] [id number] Dc dical NAL 179 [facility] 2022-05-23 2022-05-23 Ancillary Evangelina Saravia [facility] 1.2.840 .114 [id number] [facility] 13:45:00 14:30:00 Visit Christos Krishna 350.1.13.10 [facility] 4.2.7.2.[place] [id number] Dc dical NAL 179 [facility] 2022-05-20 2022-05-20 Ancillary Jolie Perez [facility] 1.2.84 0.114 [id number] [facility] 10:15:00 11:05:39 Visit Christos Krishna 350.1.13.10 [facility] 4.2.7.2.[place] [phone] Dc dical NAL 179 [facility] 2022-05-20 2022-05-20 Orders Doctor JAN 1.2.840.114 [id number] [facility] 00:00:00 00:00:00 Only Unassigned, KAYKAY 350.1.13.10 ity of [place] [facility] 4.2.7.2.686 Naldo as [id number] [address] 2022-05-13 2022-05-13 Outpatient R TOMI [facility] [id number] Univers 15:00:00 16:04:09 CHRISTOS ity [facility] 2022-05-13 2022-05-13 Ancillary April Patel [facility] 1.2.840. 114 [id number] [facility] 15:00:00 16:04:09 Visit Christos Krishna 350.1.13.10 ity of [place] [id number] Dc dicga NAL 179 [facility] 2022-04-29 2022-04-29 Outpatient [id number]- [id number] ff [id number] 00:00:00 00:00:00 Visit 7dfc-4608 dfc-4608-8 -834b-634 34b-6348dc 7tt5vx7x0 5ce0a5 2022-04-29 2022-04-29 Orders Doctor MONTOYA 1.2.840.114 [id number] Univers 00:00:00 00:00:00 Only Unassigned, KAYKAY 350.1.13.10 ity of [place] [facility] 4.2.7.2.686 Naldo as [id number] [address] 2022-04-24 2022-04-24 Office Nick, [facility] 1.2.840.114 [id number] Univers 09:00:00 09:34:22 Visit Dameon MENDOSA 350.1.13.10 ity [facility] 4.2.7.2.[place] [phone] Dc dical NAL 059 [facility] 2022-04-24 2022-04-24 Outpatient R NICK, [facility] [id number] Univers 09:00:00 09:34:22 DAMEON kwon o [facility] 2022-04-24 2022-04-24 Outpatient R NICK, [facility] [id number] Univers 09:00:00 09:34:22 DAMEON kwon o [facility] 2022-04-24 2022-04-24 Outpatient R NICK, [facility] [id number] Univers 09:00:00 09:00:00 DAMEON kwon o [facility] 2022-04-02 2022-04-02 Outpatient R NICK, [facility] [id number] Univers 09:20:00 09:20:00 DAMEON kwon o [facility] 2022-02-22 2022-02-22 Telephone Nick, [facility] 1.2.517.960 [id number] Univers 00:00:00 00:00:00 Dameon MENDOSA 350.1.13.10 ity of [place] [id number] Dc dical NAL 059 [facility] 2022-01-25 2022-01-25 Imm/Inj Vaccine, Adc Family Medicine [facility] 1.2.840.114 [id number] Univers 10:00:00 10:07:28 Visit Krathik Singh 350.1.13 .10 ity of [place] [id number] Dc dical NAL 044 [facility] 2022-01-25 2022-01-25 Out[facility] [id number] Univers 10:00:00 10:00:00 KARTHIK ity of [facility] 2022-01-24 2022-01-24 Telephone Nick, [facility] 1.2.160.777 [id number] Univers 00:00:00 00:00:00 Dameon MENDOSA 350.1.13.10 it[place] 174.6746366 Dc dical NAL 9 [facility] 2022-01-22 2022-01-22 Incident Response Engineer 2, Adc Lab [facility] 1.2.840.114 [id number] Univers 10:45:00 11:00:00 Visit Nick Dameon CAPUTOJULEE 350.1.13.10 it[place] of [place] 4[place].2.[place] [id number] Dc dical NAL 353 [facility] 2022-01-22 2022-01-22 Office [facility] 1.2.840.114 [id number] Univers 10:00:00 10:20:00 Visit Dameon MENDOSA 350.1.13.10 ity of [place].2.[place] [id number] Dc dicga NAL [address] [place] [address] 2022-01-22 2022-01-22 Outpatient R NICK, [facility] [id number] Univers 10:00:00 10:00:00 DAMEON kwon o [facility] 2022-01-22 2022-01-22 Outpatient R NICK, [facility] [id number] Univers 10:00:00 10:00:00 MYTAPAN wally o [facility] 2022-01-22 2022-01-22 Outpatient R NICK, [facility] [id number] Univers 10:00:00 10:00:00 DAMEON kwon o [facility] 2021-12-17 2021-12-17 Office [facility] 1.2.840.114 [id number] Univers 10:40:00 11:00:00 Visit Dameon MENDOSA 350.1.13.10 it[place] of [place] [id number] Dc dical NAL 9 [facility] 2021-12-17 2021-12-17 Outpatient R NICK, [facility] [id number] Univers 10:40:00 10:40:00 QIANGJUN ity o f [facility] 2021-12-17 2021-12-17 Outpatient R NICK, [facility] [id number] Univers 10:40:00 10:40:00 QIANGVIK kwon o f [facility] 2021-12-17 2021-12-17 Orders Doctor JAN 1.2.840.114 [id number] Univers 00:00:00 00:00:00 Only Unassigned, KAYKAY 350.1.13.10 ity of [place] [facility] 4.2.7.2.686 Naldo as [id number] [address] 2021-10-29 2021-10-29 Telephone [facility] 1.2.129.610 [id number] Univers 00:00:00 00:00:00 Dameon MENDOSA 350.1.13.10 [facility] 4.2.7.2.[place] [id number] Dc dicga NAL [address] [place] [address] 2021-10-29 2021-10-29 Orders Doctor JAN 1.2.840.114 [id number] Univers 00:00:00 00:00:00 Only Unassigned, KAYKAY 350.1.13.10 ity of [place] [facility] 4.2.7.2.686 Naldo as [id number] [address] 2021-10-22 2021-10-22 Outpatient R NICK, [facility] [id number] Univers 13:20:00 13:53:33 MYTAPAN ity o f [facility] 2021-10-22 2021-10-22 Office [facility] 1.2.840.114 [id number] Univers 13:20:00 13:53:33 Visit Dameon MENDOSA 350.1.13.10 [facility] 4.2.7.[place] [id number] Dc dicga NAL [address] [place] [address] 2021-10-22 2021-10-22 Outpatient R NICK, [facility] [id number] Univers 10:00:00 10:00:00 MYNEVILLEVIK cher o f [facility] 2021-10-22 2021-10-22 Orders Doctor JAN 1.2.840.114 [id number] Univers 00:00:00 00:00:00 Only Unassigned, KAYKAY 350.1.13.[address] [place] [facility] 4.2.7.2.686 Naldo as [id number] [address] 2021-10-12 2021-10-12 Outpatient R DESTINEY COFFMAN [facility] [id number] Univers 15:40:00 16:57:03 DESTINEY COFFMAN itfadia [facility] 2021-08-30 2021-08-30 Telephone [facility] 1.2.341.167 [id number] Univers 00:00:00 00:00:00 Dameon MENDOSA 350.1.13.10 it[place] [id number] Dc dical [facility] 059 [facility] 2021-08-24 2021-08-24 Telephone [facility] 1.2.960.749 [id number] Univers 00:00:00 00:00:00 Dameon MENDOSA 350.1.13.10 it[place] of [place] [id number] Dc dical [facility] 059 [facility] 2021-08-20 2021-08-20 Incident Response Engineer Davon, Jesús Lab Main [facility] 1.2.8 40.114 [id number] Univers 11:15:00 11:30:00 Visit Dameon Rosales 350.1.13.10 it[place] of [place] [id number] Dc dical NAL 353 [facility] 2021-08-20 2021-08-20 [facility] [id number] Univers 11:15:00 11:15:00 DAMEON kwon o [facility] 2021-08-20 2021-08-20 [facility] [id number] Univers 10:00:00 10:35:12 DAMEON olivera [facility] 2021-08-20 2021-08-20 Office [facility] 1.2.840.114 [id number] Univers 10:00:00 10:35:12 Visit Dameon MENDOSA 350.1.13.10 it[place] of [place] [id number] Dc dical NAL 9 [facility] 2021-07-18 2021-07-18 Outpatient R [facility] [id number] Univers 15:00:00 15:33:24 CLIFFVIK cher o [facility] 2021-07-18 2021-07-18 Office [facility] 1.2.840.114 [id number] Univers 14:43:54 15:33:24 Visit Dameon MENDOSA 350.1.13.10 [place]y of [place] 221.3939860 Dc dical NAL 9 [facility] 2021-07-17 2021-07-17 Transition KURT Raza 1.2.840.114 [id number] Univers 00:00:00 00:00:00 of Care Bhumi IBRAHIM 350.1.13.10 it y [place] [id number] [facility] [address] 2021-07-11 2021-07-13 Outpatient U [facility] [id number] Univers 16:48:00 16:23:00 NANCY kwon of [facility] 2021-07-11 2021-07-13 [facility] 1.2.840.114 [id number] Univers 16:48:00 16:23:00 Encounter Nancy MENDOSA 350.1.13.10 ity [facility] 4.2.7.2.[place] [id number] [facility] [address] 2021-07-11 2021-07-11 Outpatient [facility] [id number] Univers 15:00:00 16:34:05 DAMEON kwon o [facility] 2021-07-11 2021-07-11 Office [facility] 1.2.840.114 [id number] Univers 14:50:17 16:34:05 Visit Dameon CAPUTOJULEE 350.1.13.10 it[place] of [place] [id number] [place] 476329 [facility] 2021-07-11 2021-07-11 [facility] [id number] Univers 15:00:00 15:00:00 QIATAPAN ity o f [facility] 2021-07-11 2021-07-11 [facility] 1.2.134.048 [id number] Univers 00:00:00 00:00:00 [place]vik HARSH[place]TON 350.1.13.10 [facility] [place] [id number] [address] 2021-07-10 2021-07-10 [facility] [id number] Univers 09:27:29 23:59:00 CARIDAD ity [facility] 2021-07-10 2021-07-10 [facility] 1.2.840.114 [id number] Univers 09:27:29 23:59:00 Encounter Caridad MENDOSA 350.1.13.10 it[place] [id number] [address] 2021-07-10 2021-07-10 [facility] [id number] Univers 09:27:29 23:59:00 CARIDAD ity [facility] 2021-07-09 2021-07-09 Outpatient R RADIOLOGY [facility] [id number] Univers 13:50:33 23:59:00 ity of [facility] 2021-07-09 2021-07-09 Hospital Radiology [facility] 1.2.840.114 [id number] Univers 13:50:33 23:59:00 Encounter [place] 350.1.13.10 [facility] [place] [id number] [address] 2021-07-09 2021-07-09 Outpatient R RADIOLOGY [facility] [id number] Univers 13:50:33 23:59:00 ity of [facility] 2021-07-05 2021-07-05 Transition Raza KARRIEJosep 1.2.840.114 [id number] Univers 00:00:00 00:00:00 of Kd IBRAHIM 350.1.13.10 [place] [id number] [facility] [address] 2021-07-02 2021-07-04 Outpatient X JENNY, [facility] GOSIA [id number] Univers 18:18:00 15:36:00 MERCY ity of [facility] 2021-07-02 2021-07-04 Emergency Beth Lucero [facility] 1.2.840 .114 [id number] Univers 18:18:00 15:36:00 April Alvarado NAVYA [id number] it[facility] [place] [id number] [facility] [address] 2021-06-29 2021-06-29 Hospital Radiology [facility] 1.2.840.114 [id number] Univers 13:41:55 23:59:00 Encounter [place] 350.1.13.10 [facility] [place] [id number] [facility] [address] 2021-06-29 2021-06-29 Outpatient R RADIOLOGY [facility] [id number] Univers 13:39:32 13:40:00 ity of [facility] 2021-06-29 2021-06-29 Hospital Radiology [facility] 1.2.840.114 [id number] Univers 13:39:32 13:40:00 Encounter [place] 350.1.13.10 [facility] [place] [id number] [facility] [address] 2021-05-22 2021-05-22 Ancillary Adrien Cramer [facility] 1.2. 840.114 [id number] Univers 07:56:29 08:53:19 Visit Christos Krishna 350.1.13.10 [place] [phone] Dc dical nal [address] [place] [address] 2021-05-22 2021-05-22 Outpatient R TOMI [facility] [id number] Univers 08:00:00 08:00:00 CHRISTOS ity [facility] 2021-05-17 2021-05-17 Ancillary Adrien Cramer [facility] 1.2. 840.114 [id number] Univers 14:48:53 17:43:48 Visit Christos Krishna 350.1.13.10 [place] [id number] Dc dicga nal [address] [place] [address] 2021-05-15 2021-05-15 [facility] 1.2.840.114 [id number] [facility] 09:22:48 23:59:00 Encounter Burak [place] 350.1.13.10 [place] [phone] [address] 2021-05-15 2021-05-15 Ancillary Adrien Cramer [facility] 1.2. 840.114 [id number] Univers 08:02:36 08:47:36 Visit Krishna Christos [place] 350.1.13.10 [place] [phone] Dc dicga nal [address] [place] [address] 2021-05-15 2021-05-15 Outpatient R JONATHON [facility] [id number] Univers 00:00:00 00:00:00 SENDIL ity [facility] 2021-05-10 2021-05-10 Ancillary Adrien Cramer [facility] 1.2. 840.114 [id number] Univers 08:00:36 11:16:43 Visit Christos Krishna 350.1.13.10 [place] [phone] Dc dical nal [address] [place] [address] 2021-05-08 2021-05-08 Ancillary Adrien Cramer [facility] 1.2. 840.114 [id number] Univers 07:58:01 08:43:01 Visit Christos Krishna [place] 350.1.13.10 [place] [phone] [address] 2021-05-03 2021-05-03 Ancillary Adrien Cramer [facility] 1.2. 840.114 [id number] Univers 08:03:12 08:48:12 Visit Christos Krishna Navya 350.1.13.10 [place] [phone] [address] 2021-04-30 2021-04-30 Orders Doctor JAN 1.2.840.[id number] [place] [address] 00:00:00 00:00:00 Only Unassigned, KAYKAY 350.1.13.10 [facility] 4.2.7.2.686 Naldo as [phone] [address] 2021-04-26 2021-04-26 Ancillary Adrien Cramer [facility] 1.2. 840.114 [id number] [facility] 07:55:36 09:05:52 Visit Krishna Christos L Navya 350.1.13.10 [place] [phone] [address] 2021-04-24 2021-04-24 Ancillary Adrien Cramer [facility] 1.2. 840.114 [id number] [facility] 08:58:51 10:33:05 Visit Kerry Gee 350.1.13.10 [place] [phone] [address] 2021-04-24 2021-04-24 Outpatient Wily GEE PALAUREN [facility] [id number] [facility] Univers 09:00:00 09:00:00 KERRY itfadia [facility] 2021-04-17 2021-04-17 Outpatient R FRANCISCO [facility] [id number] Univers 13:10:00 13:10:00 KARTHIK itfadia of [facility] 2021-04-17 2021-04-17 Imm/Inj Nurse, Adc Pob Immunization [facility] 1.2.840.114 [id number] Univers 10:09:04 10:09:13 Visit Karthik Singh 350.1.13 .10 [place] [phone] [facility] 2021-04-16 2021-04-16 Hospital [facility] 1.2.840.114 [id number] Univers 13:50:00 23:59:00 Encounter [facility] 350.1.13.10 ity of [place] 4.2.7.2.686 Naldo as Frandy?Blea [phone] [facility] henry 809 [facility] 2021-04-16 2021-04-16 Office [facility] 1.2.840.114 [id number] Univers 13:41:47 13:56:47 Visit [facility] 350.1.13.10 it y of [place] 4.2.7.2.686 Naldo as Frandy?Blea [phone] Dc vivianaga dieter 198 [facility] 2021-04-16 2021-04-16 Outpatient R MARLEN [facility] [id number] Univers 13:30:00 13:30:00 KERRY kwon [facility] 2021-04-02 2021-04-02 Office [facility] 1.2.840.114 [id number] Univers 08:34:28 09:02:03 Visit Dameon [place] 350.1.13.10 [place] [phone] Dc dicga nal 059 [facility] 2021-04-02 2021-04-02 Office [facility] 1.2.840.114 [id number] Univers 08:34:28 09:02:03 Visit Dameon [place] 350.1.13.10 [place] [phone] Me dical nal 059 [facility] 2021-04-02 2021-04-02 Outpatient R NICK [facility] [id number] Univers 08:40:00 08:40:00 MYNGVIK ity o f [facility] 2021-04-02 2021-04-02 Orders Doctor JAN 1.2.840.114 [id number] Univers 00:00:00 00:00:00 Only Unassigned, KAYKAY 350.1.13.10 ity of [place] [facility] 4.2.7.2.686 Naldo as [phone] [address] 2021-04-02 2021-04-02 Orders Doctor JAN 1.2.840.114 [id number] Univers 00:00:00 00:00:00 Only Unassigned, KAYKAY 350.1.13.10 ity of [place] [facility] 4.2.7.2.686 [place] as [phone] [address] 2021-03-12 2021-03-12 Hospital [facility] 1.2.840.114 [id number] Univers 15:22:19 23:59:00 Encounter [facility] 350.1.13.10 ity of Surgical 4.2.7.2.686 [place] as Specialti [phone] Me dical es 809 [facility] 2021-03-12 2021-03-12 Office [facility] 1.2.840.114 [id number] Univers 15:04:45 15:19:45 Visit [facility] 350.1.13.10 it y of Surgical 4.2.7.2.686 [place] as Specialti [phone] Me dical es 198 [facility] 2021-03-12 2021-03-12 Outpatient R MARLEN [facility] [id number] Univers 15:15:00 15:15:00 KERRY ity of [facility] 2021-03-12 2021-03-12 Transition Kurt Raza 1.2.840.114 [id number] Univers 00:00:00 00:00:00 of Care Bhumi Agrawaly 350.1.13.10 it y of [place] [phone] [facility] [address] 2021-03-09 2021-03-09 Transition Kurt Raza 1.2.840.114 [id number] Univers 00:00:00 00:00:00 of Care Bhumi Ibrahim 350.1.13.10 [place] [phone] [facility] [address] [place] 2021-03-06 2021-03-08 Emergency Sohail Stevie [facility] 1.2.840. 114 [id number] Univers 10:33:00 14:45:00 Nancy Freedman 350.1.13.10 ity of [place] 4.2.7.2.686 [facility] [phone] [facility] [address] [place] 2021-03-05 2021-03-05 Hospital Radiology [facility] 1.2.840.114 [id number] Univers 11:30:45 23:59:00 Encounter Navya 350.1.13.10 ity of [place] 4.2.7.2.686 [facility] [phone] [facility] [address] [place] 2021-03-05 2021-03-05 Office Kerry Gee S [facility] 1.2.840.114 [id number] Univers 15:53:59 16:08:59 Visit KrishnaOscarig [facility] 350.1.13.10 ity of Surgical 4.2.7.2.686 [place]aldo as Specialti [phone] Dc dical es 198 [facility] 2021-03-05 2021-03-05 Outpatient R [facility] [id number] Univers 00:00:00 00:00:00 ity of [facility] 2020-08-30 2020-08-30 [facility] [id number] Univers 14:20:00 14:20:00 SANDRA ity [facility] 2020-08-09 2020-08-09 [facility] [id number] Univers 14:20:00 14:20:00 SANDRA ity [facility] 2020-06-10 2020-06-10 Emergency Kirit, [facility] 1.2.840.114 [id number] Univers 10:59:00 12:06:00 Lucero Navya 350.1.13.10 i ty of [place] 4.2.7.2.686 [facility] [phone] [place] [address] [place] 2020-06-10 2020-06-10 Emergency Beth, [facility] 1.2.840.114 [id number] 10:59:00 12:06:00 Lucero [place] 350.1.13.10 [place] 4.2.7.2.686 [place] [phone] [facility] 2020-02-15 2020-02-15 Hospital Unknown, [facility] 1.2.121.906 [id number] Univers 09:27:00 23:59:00 Encounter Attending Navya 350.1.13.10 ity of [place] 4.2.7.2.[address] [place] [phone] 2020-02-15 2020-02-15 Hospital Unknown, [facility] 1.2.016.412 [id number] 09:27:00 23:59:00 Encounter Attending Navya 350.1.13.10 [place] 4.2.7.2.686 [place] [phone] 800 2020-02-15 2020-02-15 Hospital Unknown, [facility] 1.2.468.567 [id number] Univers 09:26:00 09:26:00 Encounter Attending Navya 350.1.13.10 ity of [place] [address].7.[address] [place] [phone] 2020-02-15 2020-02-15 Hospital Unknown, [facility] 1.2.337.594 [id number] 09:26:00 09:26:00 Encounter Attending Navya 350.1.13.10 [place] 4.2.7.2.686 [place] [phone] [facility] 2020-02-15 2020-02-15 Outpatient R UNKNOWN, [facility] [id number] Univers 00:00:00 00:00:00 ATTENDING ity of [facility] 2016-03-11 2016-03-11 Outpatient R TO [facility] [id number] Univers 10:00:00 10:00:00 , ity [facility] Results Test Description Test Time Test Comments Results Result Comments Source BLOOD CULTURE SCREEN 2022-11-05 17:01:39 Test Item Value Reference Range Interpretation Comme nts Blood Culture-Aerobic (test No organisms isolated No growth Previous preliminary code = 50253-2) verified res ult was Culture In Prog ress on 10/31/2022 at 15 01 CDTPrevious pre liminary verified result was No growth at 24 ho urs on 11/01/2022 at 12 01 CDTPrevious pre liminary verified result was No growth at 48 ho urs on 11/02/2022 at 12 01 CDTPrevious pre liminary verified result was No growth at 72 ho urs on 11/03/2022 at 12 01 CDT Blood Culture-Anaerobic No organisms isolated No growth Previous preliminary (test code = 20633-4) verifi ed result was Culture In Prog ress on 10/31/2022 at 15 01 CDTPrevious pre liminary verified result was No growth at 24 ho urs on 11/01/2022 at 12 01 CDTPrevious pre liminary verified result was No growth at 48 ho urs on 11/02/2022 at 12 01 CDTPrevious pre liminary verified result was No growth at 72 ho urs on 11/03/2022 at 12 01 CDT Lab Interpretation (test Normal code = 78808-4) [id number] 17:01:39 Test Item Value Reference Range Interpretation Comments Blood Culture-Aerobic No organisms No growth Previo us (test code = 91524-3) isolated prelim inary verified result was Culture In Progress on 10/31/2022 at 15 01 CDTPrevious preliminary verified result was No growth a t 24 hours on 11/01/2022 at 12 01 CDTPrevious preliminary verified result was No growth a t 48 hours on 11/02/2022 at 12 01 CDTPrevious preliminary verified result was No growth a t 72 hours on 11/03/2022 at 12 01 CDT Blood No organisms No growth Previous Culture-Anaerobic isolated preliminar y (test code = 57044-5) verifi ed result was Culture In Progress on 10/31/2022 at 15 01 CDTPrevious preliminary verified result was No growth a t 24 hours on 11/01/2022 at 12 01 CDTPrevious preliminary verified result was No growth a t 48 hours on 11/02/2022 at 12 01 CDTPrevious preliminary verified result was No growth a t 72 hours on 11/03/2022 at 12 01 CDT Lab Interpretation Normal (test code = 98330-4) [facility] [id number] 20:10:17 Test Item Value Reference Range Interpretation Comments TROPONIN I (test code = 0.058 ng/mL <=0.034 H [id number]) CARLOS (test code = CARLOS) Reference (Normal) Range (defined by the 99th percentile reference limit): <= 0.034 ng/mL Note: Cardiac troponin begins to rise 3-4 hours after the onset of ischemia. Repeat in 4-6 hours if the sample was drawn within 3-4 hours of the onset of the symptom and found normal. Diagnosis of myocardial injury is made with acute changes in cTn concentrations with at least one serial sample above the 99th percentile upper reference limit (URL), taken together with the patient's clinical presentation. Biotin has been reported to cause a negative bias, interpret results relative to patient's use of biotin. Lab Interpretation Abnormal (test code = 66656-5) [facility] [id number] 17:12:48 Test Item Value Reference Range Interpretation Comments TROPONIN I (test code = 0.057 ng/mL <=0.034 H 0258264280) CARLOS (test code = CARLOS) Reference (Normal) Range (defined by the 99th percentile reference limit): <= 0.034 ng/mL Note: Cardiac troponin begins to rise 3-4 hours after the onset of ischemia. Repeat in 4-6 hours if the sample was drawn within 3-4 hours of the onset of the symptom and found normal. Diagnosis of myocardial injury is made with acute changes in cTn concentrations with at least one serial sample above the 99th percentile upper reference limit (URL), taken together with the patient's clinical presentation. Biotin has been reported to cause a negative bias, interpret results relative to patient's use of biotin. Lab Interpretation Abnormal (test code = 42867-4) [facility] [id number] 17:09:28 Test Item Value Reference Range Interpretation Comments NT-proBNP (test code = 3060 pg/mL <=450 H 9550821352) CARLOS (test code = CARLOS) Biotin has been reported to cause a negative bias, interpret results relative to patient's use of biotin. Lab Interpretation (test Abnormal code = 77266-0) [facility]. Metabolic Panel (16288)2022-10-31 17:01:26 Test Item Value Reference Range Interpretation Comments NA (test code = 130 mmol/L 135-145 L 3070934610) K (test code = 3.4 mmol/L 3.5-5.0 L 2346429840) CL (test code = 93 mmol/L 98-108 L 2388980773) CO2 TOTAL (test code = 29 mmol/L 23-31 3843489643) AGAP (test code = 8 2-16 3737030630) BUN (test code = 36 mg/dL 7-23 H 4196324334) GLUCOSE (test code = 118 mg/dL 70-110 H 5803330696) CREATININE (test code = 0.92 mg/dL 0.50-1.04 6700555543) TOTAL BILI (test code = 0.7 mg/dL 0.1-1.6 3706794212) CALCIUM (test code = 8.5 mg/dL 8.6-10.6 L 1802038905) T PROTEIN (test code = 5.6 g/dL 6.3-8.2 L 4753955990) ALBUMIN (test code = 3.0 g/dL 3.5-5.0 L 5907782534) ALK PHOS (test code = 171 U/L 34-122 H 3179986359) ALTv (test code = 36 U/L 5-35 H 1742-6) AST(SGOT) (test code = 35 U/L 13-40 9454152530) eGFR (test code = 58.2 mL/min/1.73m2 9202579084) CARLOS (test code = CARLOS) Association of Glomerular Filtration Rate (GFR) and Staging of Kidney Disease* + --+ --+ ------+| GFR (mL/min/1.73 m2) ?| With Kidney Damage ?| ?Without Kidney Damage+ --------+ --------+ +| ?>90 ?| ?Stage one ?| ? Normal ?+ ---+ ---+ -------+| ?60-89 ?| ?Stage two ?| ? Decreased GFR ? + --+ --+ ------+| ?30-59 ?| ?Stage three ?| ? Stage three ? + --+ --+ ------+| ?15-29 ?| ?Stage four ? | ? Stage four ?+ ---+ ---+ -------+| ?<15 (or dialysis) ? ?| ?Stage five ? | ? Stage five ?+ ---+ ---+ -------+ *Each stage assumes the associated GFR level has been in effect for at least three months. ?Stages 1 to 5, with or without kidney disease, indicate chronic kidney disease. Notes: Determination of stages one and two (with eGFR >59mL/min/1.73 m2) requires estimation of kidney damage for at least three months as defined by structural or functional abnormalities of the kidney, manifested by either:Pathological abnormalities or Markers of kidney damage (including abnormalities in the composition of the blood or urine or abnormalities in imaging tests). Lab Interpretation Abnormal (test code = 76776-2) [facility] with [id number] 16:38:19 Test Item Value Reference Range Interpretation Comments WBC (test code = 8.98 See_Comment [Automated 4057-2) message] The sy stem which generated this result transmitted reference range : 4.30 - 11.10 10*3/?L. The reference range was not used to interpret this result as normal/abnormal . RBC (test code = 3.88 See_Comment L [Automated 313-8) message] The sy stem which generated this result transmitted reference range : 3.93 - 5.25 10*6/?L. The reference range was not used to interpret this result as normal/abnormal . HGB (test code = 12.4 g/dL 11.6-15.0 718-7) HCT (test code = 36.6 % 35.7-45.2 4544-3) MCV (test code = 94.3 fL 80.6-95.5 787-2) MCH (test code = 32.0 pg 25.9-32.8 785-6) MCHC (test code = 33.9 g/dL 31.6-35.1 786-4) RDW-SD (test code = 42.4 fL 39.0-49.9 79848-9) RDW-CV (test code = 12.2 % 12.0-15.5 788-0) PLT (test code = 272 See_Comment [Automated 777-3) message] The sy stem which generated this result transmitted reference range : 166 - 358 10*3/ ?L. The reference r mukesh was not used to interpret this result as normal/abnormal . MPV (test code = 9.2 fL 9.5-12.9 L 51995-8) NRBC/100 WBC (test 0.0 See_Comment [Automat ed code = 5119147128) message] The system which generated this result transmitted reference range : 0.0 - 10.0 /100 WBCs. The refer ence range was not u sed to interpret th is result as normal/abnormal . NRBC x10^3 (test code See_Comment [Auto mated = 7820161242) message] The s ystem which generated this result transmitted reference range : 10*3/?L. The reference range was not used to interpret this result as normal/abnormal . GRAN MAT (NEUT) % 79.1 % (test code = 770-8) IMM GRAN % (test code 0.90 % = 9437103925) LYMPH % (test code = 7.8 % 736-9) MONO % (test code = 11.7 % 5905-5) EOS % (test code = 0.3 % 713-8) BASO % (test code = 0.2 % 706-2) GRAN MAT x10^3(ANC) 7.10 10*3/uL 1.88-7.09 H (test code = 3372736380) IMM GRAN x10^3 (test 0.08 10*3/uL 0.00-0.06 H code = 7440201347) LYMPH x10^3 (test code 0.70 10*3/uL 1.32-3.29 L = 731-0) MONO x10^3 (test code 1.05 10*3/uL 0.33-0.92 H = 742-7) EOS x10^3 (test code = 0.03 10*3/uL 0.03-0.39 711-2) BASO x10^3 (test code 0.01-0.07 = 704-7) Lab Interpretation Abnormal (test code = 91217-9) [facility] W/AUTO DIFF WITH [id number] 06:19:59 Test Item Value Reference Range Interpretation Comments WBC (test code = 9.4 K/UL 3.5-11.0 1001) RBC (test code = 4.18 M/UL 3.80-5.40 1002) HEMOGLOBIN (test code 13.5 G/DL 11.5-15.5 = 1003) HEMATOCRIT (test code 40.4 % 34.0-45.0 = 1004) MCV (test code = 96.7 fL 80.0-99.0 1005) MCH (test code = 32.3 PG 25.0-33.0 1006) MCHC (test code = 33.4 G/DL 31.0-36.0 1007) RDW (test code = 12.2 % 11.5-15.0 1038) NEUTROPHILS (test 73.1 % code = 1008) LYMPHOCYTES (test 15.8 % code = 1010) MONOCYTES (test code 8.5 % = 1011) EOSINOPHILS (test 1.5 % code = 1012) BASOPHILS (test code 0.6 % = 1013) IMMATURE GRANULOCYTES 0.5 % (test code = 1036) NUCLEATED RBCS (test 0.0 /100 WBC'S See_Comment [Aut omated code = 1065) message] The sy stem which generated this result transmitted reference range : 0.0. The refere nce range was not u sed to interpret th is result as normal/abnormal . PLATELET COUNT (test 334 K/UL 130-400 code = 1015) ABSOLUTE NEUTROPHILS 6.89 K/UL 1.50-7.50 (test code = 1066) ABSOLUTE LYMPHOCYTES 1.49 K/UL 1.00-4.00 (test code = 1067) ABSOLUTE MONOCYTES 0.80 K/UL 0.20-1.00 (test code = 1068) ABSOLUTE EOSINOPHILS 0.14 K/UL 0.00-0.50 (test code = 1040) ABSOLUTE BASOPHILS 0.06 K/UL 0.00-0.20 (test code = 1069) ABS IMMATURE 0.05 K/UL 0.00-0.10 GRANULOCYTES (test code = 1020) ABS NUCLEATED RBCS 0.00 K/UL 0.00-0.11 (test code = 54263) COMPREHENSIVE METABOLIC [id number] 03:08:09 Test Item Value Reference Range Interpretation Comments GLUCOSE (test code = 98 MG/DL 70-99 2216) BUN (test code = 11 MG/DL 8-23 2207) CREATININE (test 0.56 MG/DL 0.60-1.30 L code = 2214) eGFR (2020 CKD-EPI) 90 >60 (test code = 18866) ML/MIN/1.73 CALC BUN/CREAT (test 20 RATIO 6-28 code = 2235) SODIUM (test code = 141 MEQ/L 997-786 8547) POTASSIUM (test code 3.7 MEQ/L 3.5-5.4 = 2227) CHLORIDE (test code 100 MEQ/L 95-107 = 2214) CARBON DIOXIDE (test 28 MEQ/L 19-31 code = 220) CALCIUM (test code = 9.3 MG/DL 8.5-10.5 2208) PROTEIN, TOTAL (test 6.3 G/DL 6.1-8.3 code = 222) ALBUMIN (test code = 3.8 G/DL 3.5-5.2 2200) CALC GLOBULIN (test 2.5 G/DL 1.9-3.7 code = 2240) CALC A/G RATIO (test 1.5 RATIO 1.0-2.6 code = 2234) BILIRUBIN, TOTAL 0.5 MG/DL See_Comment [Automated message] (test code = 2207) The [employer] which generated this result transmitted ref erence range: <=1.2. T he reference range was not used to int erpret this result as normal/abnormal . ALKALINE PHOSPHATASE 93 U/L 40-142 (test code = 2204) AST (test code = 15 U/L 9-40 2217) ALT (test code = 12 U/L 5-40 UNLESS OTH ERWISE 2218) INDICATED, ALL TESTING PERFORM ED ATCLINICAL PATH [facility]LOGY LABORATORIES, [place]. [address] [place] [address] [facility] DIRECTOR: SOFIE LOZANO M.D. CLIA NUMBER [id number] CAP ACCREDITATION N O. [id number] CBC W/AUTO DIFF WITH PLATELETS [ADDED]2022-05-31 00:00:00 Test Item Value Reference Range Interpretation Comments WBC (test code = 1001) 9.4 K/UL RBC (test code = 1002) 4.18 M/UL HEMOGLOBIN (test code = 1003) 13.5 G/DL HEMATOCRIT (test code = 1004) 40.4 % MCV (test code = 1005) 96.7 fL MCH (test code = 1006) 32.3 PG MCHC (test code = 1007) 33.4 G/DL RDW (test code = 1038) 12.2 % NEUTROPHILS (test code = 1008) 73.1 % LYMPHOCYTES (test code = 1010) 15.8 % MONOCYTES (test code = 1011) 8.5 % EOSINOPHILS (test code = 1012) 1.5 % BASOPHILS (test code = 1013) 0.6 % IMMATURE GRANULOCYTES (test 0.5 % code = 1036) NUCLEATED RBCS (test code = 0.0 /100WBC'S 1065) PLATELET COUNT (test code = 334 K/UL 1015) ABSOLUTE NEUTROPHILS (test code 6.89 K/UL = 1066) ABSOLUTE LYMPHOCYTES (test code 1.49 K/UL = 1067) ABSOLUTE MONOCYTES (test code = 0.80 K/UL 1068) ABSOLUTE EOSINOPHILS (test code 0.14 K/UL = 1040) ABSOLUTE BASOPHILS (test code = 0.06 K/UL 1069) ABS IMMATURE GRANULOCYTES (test 0.05 K/UL code = 1020) ABS NUCLEATED RBCS (test code = 0.00 K/UL 12858) CBC W/AUTO DIFF WITH PLATELETS [ADDED]2022-05-31 00:00:00 Test Item Value Reference Range Interpretation Comments WBC (test code = 1001) 9.4 K/UL RBC (test code = 1002) 4.18 M/UL HEMOGLOBIN (test code = 1003) 13.5 G/DL HEMATOCRIT (test code = 1004) 40.4 % MCV (test code = 1005) 96.7 fL MCH (test code = 1006) 32.3 PG MCHC (test code = 1007) 33.4 G/DL RDW (test code = 1038) 12.2 % NEUTROPHILS (test code = 1008) 73.1 % LYMPHOCYTES (test code = 1010) 15.8 % MONOCYTES (test code = 1011) 8.5 % EOSINOPHILS (test code = 1012) 1.5 % BASOPHILS (test code = 1013) 0.6 % IMMATURE GRANULOCYTES (test 0.5 % code = 1036) NUCLEATED RBCS (test code = 0.0 /100WBC'S 1065) PLATELET COUNT (test code = 334 K/UL 1015) ABSOLUTE NEUTROPHILS (test code 6.89 K/UL = 1066) ABSOLUTE LYMPHOCYTES (test code 1.49 K/UL = 1067) ABSOLUTE MONOCYTES (test code = 0.80 K/UL 1068) ABSOLUTE EOSINOPHILS (test code 0.14 K/UL = 1040) ABSOLUTE BASOPHILS (test code = 0.06 K/UL 1069) ABS IMMATURE GRANULOCYTES (test 0.05 K/UL code = 1020) ABS NUCLEATED RBCS (test code = 0.00 K/UL 13474) CBC W/AUTO DIFF WITH PLATELETS [ADDED]2022-05-31 00:00:00 Test Item Value Reference Range Interpretation Comments WBC (test code = 1001) 9.4 K/UL RBC (test code = 1002) 4.18 M/UL HEMOGLOBIN (test code = 1003) 13.5 G/DL HEMATOCRIT (test code = 1004) 40.4 % MCV (test code = 1005) 96.7 fL MCH (test code = 1006) 32.3 PG MCHC (test code = 1007) 33.4 G/DL RDW (test code = 1038) 12.2 % NEUTROPHILS (test code = 1008) 73.1 % LYMPHOCYTES (test code = 1010) 15.8 % MONOCYTES (test code = 1011) 8.5 % EOSINOPHILS (test code = 1012) 1.5 % BASOPHILS (test code = 1013) 0.6 % IMMATURE GRANULOCYTES (test 0.5 % code = 1036) NUCLEATED RBCS (test code = 0.0 /100WBC'S 1065) PLATELET COUNT (test code = 334 K/UL 1015) ABSOLUTE NEUTROPHILS (test code 6.89 K/UL = 1066) ABSOLUTE LYMPHOCYTES (test code 1.49 K/UL = 1067) ABSOLUTE MONOCYTES (test code = 0.80 K/UL 1068) ABSOLUTE EOSINOPHILS (test code 0.14 K/UL = 1040) ABSOLUTE BASOPHILS (test code = 0.06 K/UL 1069) ABS IMMATURE GRANULOCYTES (test 0.05 K/UL code = 1020) ABS NUCLEATED RBCS (test code = 0.00 K/UL 83305) COMPREHENSIVE METABOLIC PANEL [ADDED]2022-05-31 00:00:00 Test Item Value Reference Range Interpretation Comments GLUCOSE (test code = 2217) 98 MG/DL BUN (test code = 2208) 11 MG/DL CREATININE (test code = 2214) 0.56 MG/DL eGFR (2020 CKD-EPI) (test code 90 ML/MIN/1.73 = 24706) CALC BUN/CREAT (test code = 20 RATIO 2235) SODIUM (test code = 2231) 141 MEQ/L POTASSIUM (test code = 2228) 3.7 MEQ/L CHLORIDE (test code = 2215) 100 MEQ/L CARBON DIOXIDE (test code = 28 MEQ/L 2205) CALCIUM (test code = 2209) 9.3 MG/DL PROTEIN, TOTAL (test code = 6.3 G/DL 2228) ALBUMIN (test code = 2201) 3.8 G/DL CALC GLOBULIN (test code = 2.5 G/DL 2239) CALC A/G RATIO (test code = 1.5 RATIO 2234) BILIRUBIN, TOTAL (test code = 0.5 MG/DL 2206) ALKALINE PHOSPHATASE (test 93 U/L code = 2204) AST (test code = 2218) 15 U/L ALT (test code = 2219) 12 U/L COMPREHENSIVE METABOLIC PANEL [ADDED]2022-05-31 00:00:00 Test Item Value Reference Range Interpretation Comments GLUCOSE (test code = 2217) 98 MG/DL BUN (test code = 2208) 11 MG/DL CREATININE (test code = 2214) 0.56 MG/DL eGFR (2020 CKD-EPI) (test code 90 ML/MIN/1.73 = 26104) CALC BUN/CREAT (test code = 20 RATIO 2235) SODIUM (test code = 2231) 141 MEQ/L POTASSIUM (test code = 2228) 3.7 MEQ/L CHLORIDE (test code = 2215) 100 MEQ/L CARBON DIOXIDE (test code = 28 MEQ/L 2206) CALCIUM (test code = 2209) 9.3 MG/DL PROTEIN, TOTAL (test code = 6.3 G/DL 222) ALBUMIN (test code = 2201) 3.8 G/DL CALC GLOBULIN (test code = 2.5 G/DL 2240) CALC A/G RATIO (test code = 1.5 RATIO 2234) BILIRUBIN, TOTAL (test code = 0.5 MG/DL 2206) ALKALINE PHOSPHATASE (test 93 U/L code = 2204) AST (test code = 2218) 15 U/L ALT (test code = 2219) 12 U/L CBC W/AUTO DIFF WITH PLATELETS [ADDED]2022-05-31 00:00:00 Test Item Value Reference Range Interpretation Comments WBC (test code = 1001) 9.4 K/UL RBC (test code = 1002) 4.18 M/UL HEMOGLOBIN (test code = 1003) 13.5 G/DL HEMATOCRIT (test code = 1004) 40.4 % MCV (test code = 1005) 96.7 fL MCH (test code = 1006) 32.3 PG MCHC (test code = 1007) 33.4 G/DL RDW (test code = 1038) 12.2 % NEUTROPHILS (test code = 1008) 73.1 % LYMPHOCYTES (test code = 1010) 15.8 % MONOCYTES (test code = 1011) 8.5 % EOSINOPHILS (test code = 1012) 1.5 % BASOPHILS (test code = 1013) 0.6 % IMMATURE GRANULOCYTES (test 0.5 % code = 1036) NUCLEATED RBCS (test code = 0.0 /100WBC'S 1065) PLATELET COUNT (test code = 334 K/UL 1015) ABSOLUTE NEUTROPHILS (test code 6.89 K/UL = 1066) ABSOLUTE LYMPHOCYTES (test code 1.49 K/UL = 1067) ABSOLUTE MONOCYTES (test code = 0.80 K/UL 1068) ABSOLUTE EOSINOPHILS (test code 0.14 K/UL = 1040) ABSOLUTE BASOPHILS (test code = 0.06 K/UL 1069) ABS IMMATURE GRANULOCYTES (test 0.05 K/UL code = 1020) ABS NUCLEATED RBCS (test code = 0.00 K/UL 78818) CBC W/AUTO DIFF WITH PLATELETS [ADDED]2022-05-31 00:00:00 Test Item Value Reference Range Interpretation Comments WBC (test code = 1001) 9.4 K/UL RBC (test code = 1002) 4.18 M/UL HEMOGLOBIN (test code = 1003) 13.5 G/DL HEMATOCRIT (test code = 1004) 40.4 % MCV (test code = 1005) 96.7 fL MCH (test code = 1006) 32.3 PG MCHC (test code = 1007) 33.4 G/DL RDW (test code = 1038) 12.2 % NEUTROPHILS (test code = 1008) 73.1 % LYMPHOCYTES (test code = 1010) 15.8 % MONOCYTES (test code = 1011) 8.5 % EOSINOPHILS (test code = 1012) 1.5 % BASOPHILS (test code = 1013) 0.6 % IMMATURE GRANULOCYTES (test 0.5 % code = 1036) NUCLEATED RBCS (test code = 0.0 /100WBC'S 1065) PLATELET COUNT (test code = 334 K/UL 1015) ABSOLUTE NEUTROPHILS (test code 6.89 K/UL = 1066) ABSOLUTE LYMPHOCYTES (test code 1.49 K/UL = 1067) ABSOLUTE MONOCYTES (test code = 0.80 K/UL 1068) ABSOLUTE EOSINOPHILS (test code 0.14 K/UL = 1040) ABSOLUTE BASOPHILS (test code = 0.06 K/UL 1069) ABS IMMATURE GRANULOCYTES (test 0.05 K/UL code = 1020) ABS NUCLEATED RBCS (test code = 0.00 K/UL 22000) CBC W/AUTO DIFF WITH PLATELETS [ADDED]2022-05-31 00:00:00 Test Item Value Reference Range Interpretation Comments WBC (test code = 1001) 9.4 K/UL RBC (test code = 1002) 4.18 M/UL HEMOGLOBIN (test code = 1003) 13.5 G/DL HEMATOCRIT (test code = 1004) 40.4 % MCV (test code = 1005) 96.7 fL MCH (test code = 1006) 32.3 PG MCHC (test code = 1007) 33.4 G/DL RDW (test code = 1038) 12.2 % NEUTROPHILS (test code = 1008) 73.1 % LYMPHOCYTES (test code = 1010) 15.8 % MONOCYTES (test code = 1011) 8.5 % EOSINOPHILS (test code = 1012) 1.5 % BASOPHILS (test code = 1013) 0.6 % IMMATURE GRANULOCYTES (test 0.5 % code = 1036) NUCLEATED RBCS (test code = 0.0 /100WBC'S 1065) PLATELET COUNT (test code = 334 K/UL 1015) ABSOLUTE NEUTROPHILS (test code 6.89 K/UL = 1066) ABSOLUTE LYMPHOCYTES (test code 1.49 K/UL = 1067) ABSOLUTE MONOCYTES (test code = 0.80 K/UL 1068) ABSOLUTE EOSINOPHILS (test code 0.14 K/UL = 1040) ABSOLUTE BASOPHILS (test code = 0.06 K/UL 1069) ABS IMMATURE GRANULOCYTES (test 0.05 K/UL code = 1020) ABS NUCLEATED RBCS (test code = 0.00 K/UL 50665) COMPREHENSIVE METABOLIC PANEL [ADDED]2022-05-31 00:00:00 Test Item Value Reference Range Interpretation Comments GLUCOSE (test code = 2217) 98 MG/DL BUN (test code = 2208) 11 MG/DL CREATININE (test code = 2214) 0.56 MG/DL eGFR (2020 CKD-EPI) (test code 90 ML/MIN/1.73 = 76832) CALC BUN/CREAT (test code = 20 RATIO 2235) SODIUM (test code = 2231) 141 MEQ/L POTASSIUM (test code = 2228) 3.7 MEQ/L CHLORIDE (test code = 2215) 100 MEQ/L CARBON DIOXIDE (test code = 28 MEQ/L 6) CALCIUM (test code = 2209) 9.3 MG/DL PROTEIN, TOTAL (test code = 6.3 G/DL 2228) ALBUMIN (test code = 2201) 3.8 G/DL CALC GLOBULIN (test code = 2.5 G/DL 2240) CALC A/G RATIO (test code = 1.5 RATIO 2234) BILIRUBIN, TOTAL (test code = 0.5 MG/DL 220) ALKALINE PHOSPHATASE (test 93 U/L code = 2204) AST (test code = 2218) 15 U/L ALT (test code = 2219) 12 U/L COMPREHENSIVE METABOLIC PANEL [ADDED]2022-05-31 00:00:00 Test Item Value Reference Range Interpretation Comments GLUCOSE (test code = 2217) 98 MG/DL BUN (test code = 2208) 11 MG/DL CREATININE (test code = 2214) 0.56 MG/DL eGFR (2020 CKD-EPI) (test code 90 ML/MIN/1.73 = 93593) CALC BUN/CREAT (test code = 20 RATIO 2235) SODIUM (test code = 2231) 141 MEQ/L POTASSIUM (test code = 2228) 3.7 MEQ/L CHLORIDE (test code = 2215) 100 MEQ/L CARBON DIOXIDE (test code = 28 MEQ/L 2205) CALCIUM (test code = 220) 9.3 MG/DL PROTEIN, TOTAL (test code = 6.3 G/DL 2228) ALBUMIN (test code = 2201) 3.8 G/DL CALC GLOBULIN (test code = 2.5 G/DL 2239) CALC A/G RATIO (test code = 1.5 RATIO 2233) BILIRUBIN, TOTAL (test code = 0.5 MG/DL 2206) ALKALINE PHOSPHATASE (test 93 U/L code = 2204) AST (test code = 2218) 15 U/L ALT (test code = 2219) 12 U/L LIPID [id number] 06:57:57 Test Item Value Reference Range Interpretation Comments CHOLESTEROL (test 134 MG/DL <200 code = 2210) TRIGLYCERIDES (test 76 MG/DL <150 code = 2232) HDL CHOLESTEROL (test 34 MG/DL >39 L code = 2220) CALC LDL CHOL (test 83 MG/DL <100 NOTE: C ALCULATED LDL code = 2237) IS BASED ON SIDNEY-HAYS METHOD WHICHINCLUDES ADJUSTABLE TRIGLYCERIDE:VL DL CHOLESTEROL RAT IO.THIS FACTOR VARIES B Y MEASURED TRIGLY CERIDE AND NON-HDLCHOL ESTEROL CONCENTRATIONS WITH INCREASED CALCU LATED LDL SEENIN HIGH ER TRIGLYCERIDE OR LOWER NON-HDL SPECIME NS. FOR MOREINFORMATION , SEE CLIENT ANNOUNCE MENT AT [email or web address] RISK RATIO LDL/HDL 2.44 RATIO <3.22 (test code = 223) COMPREHENSIVE METABOLIC [id number] 06:57:57 Test Item Value Reference Range Interpretation Comments GLUCOSE (test code = 89 MG/DL 70-99 2216) BUN (test code = 14 MG/DL 8-23 2207) CREATININE (test 0.68 MG/DL 0.60-1.30 code = 2214) eGFR (2020 CKD-EPI) 86 ML/MIN/1.73 >60 (test code = 32163) CALC BUN/CREAT (test 21 RATIO 6-28 code = 2235) SODIUM (test code = 141 MEQ/L 297-745 2930) POTASSIUM (test code 4.4 MEQ/L 3.5-5.4 = 2228) CHLORIDE (test code 104 MEQ/L 95-107 = 2215) CARBON DIOXIDE (test 27 MEQ/L 19-31 code = 2206) CALCIUM (test code = 9.2 MG/DL 8.5-10.5 2208) PROTEIN, TOTAL (test 6.1 G/DL 6.1-8.3 code = 2229) ALBUMIN (test code = 3.9 G/DL 3.5-5.2 2200) CALC GLOBULIN (test 2.2 G/DL 1.9-3.7 code = 2240) CALC A/G RATIO (test 1.8 RATIO 1.0-2.6 code = 2234) BILIRUBIN, TOTAL 0.4 MG/DL See_Comment [Automated message] (test code = 220) The syste m which generated this result transmit pina reference range : <=1.2. The refe rence range was not u sed to interpret th is result as normal/abnormal . ALKALINE PHOSPHATASE 96 U/L 40-142 (test code = 2203) AST (test code = 15 U/L 9-40 2217) ALT (test code = 11 U/L 5-40 2218) CBC W/AUTO DIFF WITH [id number] 06:22:07 Test Item Value Reference Range Interpretation Comments WBC (test code = 5.0 K/UL 3.5-11.0 1001) RBC (test code = 4.25 M/UL 3.80-5.40 1002) HEMOGLOBIN (test 13.6 G/DL 11.5-15.5 code = 1003) HEMATOCRIT (test 41.3 % 34.0-45.0 code = 1004) MCV (test code = 97.2 fL 80.0-99.0 1005) MCH (test code = 32.0 PG 25.0-33.0 1006) MCHC (test code = 32.9 G/DL 31.0-36.0 1007) RDW (test code = 12.5 % 11.5-15.0 1038) NEUTROPHILS (test 51.5 % code = 1008) LYMPHOCYTES (test 35.3 % code = 1010) MONOCYTES (test code 8.0 % = 1011) EOSINOPHILS (test 3.4 % code = 1012) BASOPHILS (test code 1.4 % = 1013) IMMATURE 0.4 % GRANULOCYTES (test code = 1036) NUCLEATED RBCS (test 0.0 /100 See_Comment [Autom ated message] code = 1065) WBC'S The system [employer] generated this result transmitted ref erence range: 0.0. The reference range was not used to int erpret this result as normal/abnormal . PLATELET COUNT (test 268 K/UL 130-400 code = 1015) ABSOLUTE NEUTROPHILS 2.56 K/UL 1.50-7.50 (test code = 1066) ABSOLUTE LYMPHOCYTES 1.76 K/UL 1.00-4.00 (test code = 1067) ABSOLUTE MONOCYTES 0.40 K/UL 0.20-1.00 (test code = 1068) ABSOLUTE EOSINOPHILS 0.17 K/UL 0.00-0.50 (test code = 1040) ABSOLUTE BASOPHILS 0.07 K/UL 0.00-0.20 (test code = 1069) ABS IMMATURE 0.02 K/UL 0.00-0.10 GRANULOCYTES (test code = 1020) ABS NUCLEATED RBCS 0.00 K/UL 0.00-0.11 UNLESS O THERWISE (test code = 39756) INDICATE D, ALL TESTING PERFORM [facility], [facility]. [address] [place] [id number] [place] [address] DIRECTOR: Enid CHENGIA NUMBER [id number] CAP ACCREDITATION N O. [id number] LIPID PANEL [ADDED]2022-05-01 00:00:00 Test Item Value Reference Range Interpretation Comments CHOLESTEROL (test code = 2210) 134 MG/DL TRIGLYCERIDES (test code = 2232) 76 MG/DL HDL CHOLESTEROL (test code = 2220) 34 MG/DL CALC LDL CHOL (test code = 2237) 83 MG/DL RISK RATIO LDL/HDL (test code = 2.44 RATIO 2238) LIPID PANEL [ADDED]2022-05-01 00:00:00 Test Item Value Reference Range Interpretation Comments CHOLESTEROL (test code = 2210) 134 MG/DL TRIGLYCERIDES (test code = 2232) 76 MG/DL HDL CHOLESTEROL (test code = 2220) 34 MG/DL CALC LDL CHOL (test code = 2237) 83 MG/DL RISK RATIO LDL/HDL (test code = 2.44 RATIO 2238) COMPREHENSIVE METABOLIC PANEL [ADDED]2022-05-01 00:00:00 Test Item Value Reference Range Interpretation Comments GLUCOSE (test code = 2217) 89 MG/DL BUN (test code = 2208) 14 MG/DL CREATININE (test code = 2214) 0.68 MG/DL eGFR (2020 CKD-EPI) (test code 86 ML/MIN/1.73 = 51254) CALC BUN/CREAT (test code = 21 RATIO 2235) SODIUM (test code = 2231) 141 MEQ/L POTASSIUM (test code = 2228) 4.4 MEQ/L CHLORIDE (test code = 2215) 104 MEQ/L CARBON DIOXIDE (test code = 27 MEQ/L 220) CALCIUM (test code = 2209) 9.2 MG/DL PROTEIN, TOTAL (test code = 6.1 G/DL 2228) ALBUMIN (test code = 2201) 3.9 G/DL CALC GLOBULIN (test code = 2.2 G/DL 2240) CALC A/G RATIO (test code = 1.8 RATIO 2234) BILIRUBIN, TOTAL (test code = 0.4 MG/DL 2206) ALKALINE PHOSPHATASE (test 96 U/L code = 2204) AST (test code = 2218) 15 U/L ALT (test code = 2219) 11 U/L COMPREHENSIVE METABOLIC PANEL [ADDED]2022-05-01 00:00:00 Test Item Value Reference Range Interpretation Comments GLUCOSE (test code = 2217) 89 MG/DL BUN (test code = 2208) 14 MG/DL CREATININE (test code = 2214) 0.68 MG/DL eGFR (2020 CKD-EPI) (test code 86 ML/MIN/1.73 = 40071) CALC BUN/CREAT (test code = 21 RATIO 2235) SODIUM (test code = 2231) 141 MEQ/L POTASSIUM (test code = 2228) 4.4 MEQ/L CHLORIDE (test code = 2215) 104 MEQ/L CARBON DIOXIDE (test code = 27 MEQ/L 220) CALCIUM (test code = 2209) 9.2 MG/DL PROTEIN, TOTAL (test code = 6.1 G/DL 2228) ALBUMIN (test code = 2201) 3.9 G/DL CALC GLOBULIN (test code = 2.2 G/DL 2240) CALC A/G RATIO (test code = 1.8 RATIO 2234) BILIRUBIN, TOTAL (test code = 0.4 MG/DL 2207) ALKALINE PHOSPHATASE (test 96 U/L code = 2204) AST (test code = 2218) 15 U/L ALT (test code = 2219) 11 U/L CBC W/AUTO DIFF WITH PLATELETS [ADDED]2022-05-01 00:00:00 Test Item Value Reference Range Interpretation Comments WBC (test code = 1001) 5.0 K/UL RBC (test code = 1002) 4.25 M/UL HEMOGLOBIN (test code = 1003) 13.6 G/DL HEMATOCRIT (test code = 1004) 41.3 % MCV (test code = 1005) 97.2 fL MCH (test code = 1006) 32.0 PG MCHC (test code = 1007) 32.9 G/DL RDW (test code = 1038) 12.5 % NEUTROPHILS (test code = 1008) 51.5 % LYMPHOCYTES (test code = 1010) 35.3 % MONOCYTES (test code = 1011) 8.0 % EOSINOPHILS (test code = 1012) 3.4 % BASOPHILS (test code = 1013) 1.4 % IMMATURE GRANULOCYTES (test 0.4 % code = 1036) NUCLEATED RBCS (test code = 0.0 /100WBC'S 1065) PLATELET COUNT (test code = 268 K/UL 1015) ABSOLUTE NEUTROPHILS (test code 2.56 K/UL = 1066) ABSOLUTE LYMPHOCYTES (test code 1.76 K/UL = 1067) ABSOLUTE MONOCYTES (test code = 0.40 K/UL 1068) ABSOLUTE EOSINOPHILS (test code 0.17 K/UL = 1040) ABSOLUTE BASOPHILS (test code = 0.07 K/UL 1069) ABS IMMATURE GRANULOCYTES (test 0.02 K/UL code = 1020) ABS NUCLEATED RBCS (test code = 0.00 K/UL 59180) CBC W/AUTO DIFF WITH PLATELETS [ADDED]2022-05-01 00:00:00 Test Item Value Reference Range Interpretation Comments WBC (test code = 1001) 5.0 K/UL RBC (test code = 1002) 4.25 M/UL HEMOGLOBIN (test code = 1003) 13.6 G/DL HEMATOCRIT (test code = 1004) 41.3 % MCV (test code = 1005) 97.2 fL MCH (test code = 1006) 32.0 PG MCHC (test code = 1007) 32.9 G/DL RDW (test code = 1038) 12.5 % NEUTROPHILS (test code = 1008) 51.5 % LYMPHOCYTES (test code = 1010) 35.3 % MONOCYTES (test code = 1011) 8.0 % EOSINOPHILS (test code = 1012) 3.4 % BASOPHILS (test code = 1013) 1.4 % IMMATURE GRANULOCYTES (test 0.4 % code = 1036) NUCLEATED RBCS (test code = 0.0 /100WBC'S 1065) PLATELET COUNT (test code = 268 K/UL 1015) ABSOLUTE NEUTROPHILS (test code 2.56 K/UL = 1066) ABSOLUTE LYMPHOCYTES (test code 1.76 K/UL = 1067) ABSOLUTE MONOCYTES (test code = 0.40 K/UL 1068) ABSOLUTE EOSINOPHILS (test code 0.17 K/UL = 1040) ABSOLUTE BASOPHILS (test code = 0.07 K/UL 1069) ABS IMMATURE GRANULOCYTES (test 0.02 K/UL code = 1020) ABS NUCLEATED RBCS (test code = 0.00 K/UL 56701) CBC W/AUTO DIFF WITH PLATELETS [ADDED]2022-05-01 00:00:00 Test Item Value Reference Range Interpretation Comments WBC (test code = 1001) 5.0 K/UL RBC (test code = 1002) 4.25 M/UL HEMOGLOBIN (test code = 1003) 13.6 G/DL HEMATOCRIT (test code = 1004) 41.3 % MCV (test code = 1005) 97.2 fL MCH (test code = 1006) 32.0 PG MCHC (test code = 1007) 32.9 G/DL RDW (test code = 1038) 12.5 % NEUTROPHILS (test code = 1008) 51.5 % LYMPHOCYTES (test code = 1010) 35.3 % MONOCYTES (test code = 1011) 8.0 % EOSINOPHILS (test code = 1012) 3.4 % BASOPHILS (test code = 1013) 1.4 % IMMATURE GRANULOCYTES (test 0.4 % code = 1036) NUCLEATED RBCS (test code = 0.0 /100WBC'S 1065) PLATELET COUNT (test code = 268 K/UL 1015) ABSOLUTE NEUTROPHILS (test code 2.56 K/UL = 1066) ABSOLUTE LYMPHOCYTES (test code 1.76 K/UL = 1067) ABSOLUTE MONOCYTES (test code = 0.40 K/UL 1068) ABSOLUTE EOSINOPHILS (test code 0.17 K/UL = 1040) ABSOLUTE BASOPHILS (test code = 0.07 K/UL 1069) ABS IMMATURE GRANULOCYTES (test 0.02 K/UL code = 1020) ABS NUCLEATED RBCS (test code = 0.00 K/UL 19408) LIPID PANEL [ADDED]2022-05-01 00:00:00 Test Item Value Reference Range Interpretation Comments CHOLESTEROL (test code = 2210) 134 MG/DL TRIGLYCERIDES (test code = 2232) 76 MG/DL HDL CHOLESTEROL (test code = 2220) 34 MG/DL CALC LDL CHOL (test code = 2237) 83 MG/DL RISK RATIO LDL/HDL (test code = 2.44 RATIO 2238) LIPID PANEL [ADDED]2022-05-01 00:00:00 Test Item Value Reference Range Interpretation Comments CHOLESTEROL (test code = 2210) 134 MG/DL TRIGLYCERIDES (test code = 2232) 76 MG/DL HDL CHOLESTEROL (test code = 2220) 34 MG/DL CALC LDL CHOL (test code = 2237) 83 MG/DL RISK RATIO LDL/HDL (test code = 2.44 RATIO 2238) COMPREHENSIVE METABOLIC PANEL [ADDED]2022-05-01 00:00:00 Test Item Value Reference Range Interpretation Comments GLUCOSE (test code = 2217) 89 MG/DL BUN (test code = 2208) 14 MG/DL CREATININE (test code = 2214) 0.68 MG/DL eGFR (2020 CKD-EPI) (test code 86 ML/MIN/1.73 = 51520) CALC BUN/CREAT (test code = 21 RATIO 2235) SODIUM (test code = 2231) 141 MEQ/L POTASSIUM (test code = 2228) 4.4 MEQ/L CHLORIDE (test code = 2215) 104 MEQ/L CARBON DIOXIDE (test code = 27 MEQ/L 2205) CALCIUM (test code = 2209) 9.2 MG/DL PROTEIN, TOTAL (test code = 6.1 G/DL 2228) ALBUMIN (test code = 220) 3.9 G/DL CALC GLOBULIN (test code = 2.2 G/DL 2239) CALC A/G RATIO (test code = 1.8 RATIO 223) BILIRUBIN, TOTAL (test code = 0.4 MG/DL 2207) ALKALINE PHOSPHATASE (test 96 U/L code = 2204) AST (test code = 2218) 15 U/L ALT (test code = 2219) 11 U/L COMPREHENSIVE METABOLIC PANEL [ADDED]2022-05-01 00:00:00 Test Item Value Reference Range Interpretation Comments GLUCOSE (test code = 2217) 89 MG/DL BUN (test code = 2208) 14 MG/DL CREATININE (test code = 2214) 0.68 MG/DL eGFR (2020 CKD-EPI) (test code 86 ML/MIN/1.73 = 53885) CALC BUN/CREAT (test code = 21 RATIO 2235) SODIUM (test code = 2231) 141 MEQ/L POTASSIUM (test code = 2228) 4.4 MEQ/L CHLORIDE (test code = 2215) 104 MEQ/L CARBON DIOXIDE (test code = 27 MEQ/L 2205) CALCIUM (test code = 2209) 9.2 MG/DL PROTEIN, TOTAL (test code = 6.1 G/DL 2228) ALBUMIN (test code = 2201) 3.9 G/DL CALC GLOBULIN (test code = 2.2 G/DL 2239) CALC A/G RATIO (test code = 1.8 RATIO 2234) BILIRUBIN, TOTAL (test code = 0.4 MG/DL 2206) ALKALINE PHOSPHATASE (test 96 U/L code = 2204) AST (test code = 2218) 15 U/L ALT (test code = 2219) 11 U/L CBC W/AUTO DIFF WITH PLATELETS [ADDED]2022-05-01 00:00:00 Test Item Value Reference Range Interpretation Comments WBC (test code = 1001) 5.0 K/UL RBC (test code = 1002) 4.25 M/UL HEMOGLOBIN (test code = 1003) 13.6 G/DL HEMATOCRIT (test code = 1004) 41.3 % MCV (test code = 1005) 97.2 fL MCH (test code = 1006) 32.0 PG MCHC (test code = 1007) 32.9 G/DL RDW (test code = 1038) 12.5 % NEUTROPHILS (test code = 1008) 51.5 % LYMPHOCYTES (test code = 1010) 35.3 % MONOCYTES (test code = 1011) 8.0 % EOSINOPHILS (test code = 1012) 3.4 % BASOPHILS (test code = 1013) 1.4 % IMMATURE GRANULOCYTES (test 0.4 % code = 1036) NUCLEATED RBCS (test code = 0.0 /100WBC'S 1065) PLATELET COUNT (test code = 268 K/UL 1015) ABSOLUTE NEUTROPHILS (test code 2.56 K/UL = 1066) ABSOLUTE LYMPHOCYTES (test code 1.76 K/UL = 1067) ABSOLUTE MONOCYTES (test code = 0.40 K/UL 1068) ABSOLUTE EOSINOPHILS (test code 0.17 K/UL = 1040) ABSOLUTE BASOPHILS (test code = 0.07 K/UL 1069) ABS IMMATURE GRANULOCYTES (test 0.02 K/UL code = 1020) ABS NUCLEATED RBCS (test code = 0.00 K/UL 03562) CBC W/AUTO DIFF WITH PLATELETS [ADDED]2022-05-01 00:00:00 Test Item Value Reference Range Interpretation Comments WBC (test code = 1001) 5.0 K/UL RBC (test code = 1002) 4.25 M/UL HEMOGLOBIN (test code = 1003) 13.6 G/DL HEMATOCRIT (test code = 1004) 41.3 % MCV (test code = 1005) 97.2 fL MCH (test code = 1006) 32.0 PG MCHC (test code = 1007) 32.9 G/DL RDW (test code = 1038) 12.5 % NEUTROPHILS (test code = 1008) 51.5 % LYMPHOCYTES (test code = 1010) 35.3 % MONOCYTES (test code = 1011) 8.0 % EOSINOPHILS (test code = 1012) 3.4 % BASOPHILS (test code = 1013) 1.4 % IMMATURE GRANULOCYTES (test 0.4 % code = 1036) NUCLEATED RBCS (test code = 0.0 /100WBC'S 1065) PLATELET COUNT (test code = 268 K/UL 1015) ABSOLUTE NEUTROPHILS (test code 2.56 K/UL = 1066) ABSOLUTE LYMPHOCYTES (test code 1.76 K/UL = 1067) ABSOLUTE MONOCYTES (test code = 0.40 K/UL 1068) ABSOLUTE EOSINOPHILS (test code 0.17 K/UL = 1040) ABSOLUTE BASOPHILS (test code = 0.07 K/UL 1069) ABS IMMATURE GRANULOCYTES (test 0.02 K/UL code = 1020) ABS NUCLEATED RBCS (test code = 0.00 K/UL 70355) CBC W/AUTO DIFF WITH PLATELETS [ADDED]2022-05-01 00:00:00 Test Item Value Reference Range Interpretation Comments WBC (test code = 1001) 5.0 K/UL RBC (test code = 1002) 4.25 M/UL HEMOGLOBIN (test code = 1003) 13.6 G/DL HEMATOCRIT (test code = 1004) 41.3 % MCV (test code = 1005) 97.2 fL MCH (test code = 1006) 32.0 PG MCHC (test code = 1007) 32.9 G/DL RDW (test code = 1038) 12.5 % NEUTROPHILS (test code = 1008) 51.5 % LYMPHOCYTES (test code = 1010) 35.3 % MONOCYTES (test code = 1011) 8.0 % EOSINOPHILS (test code = 1012) 3.4 % BASOPHILS (test code = 1013) 1.4 % IMMATURE GRANULOCYTES (test 0.4 % code = 1036) NUCLEATED RBCS (test code = 0.0 /100WBC'S 1065) PLATELET COUNT (test code = 268 K/UL 1015) ABSOLUTE NEUTROPHILS (test code 2.56 K/UL = 1066) ABSOLUTE LYMPHOCYTES (test code 1.76 K/UL = 1067) ABSOLUTE MONOCYTES (test code = 0.40 K/UL 1068) ABSOLUTE EOSINOPHILS (test code 0.17 K/UL = 1040) ABSOLUTE BASOPHILS (test code = 0.07 K/UL 1069) ABS IMMATURE GRANULOCYTES (test 0.02 K/UL code = 1020) ABS NUCLEATED RBCS (test code = 0.00 K/UL 85858) URINE CULTURE, NO [id number] 00:00:00 Test Item Value Reference Range Interpretation Comments URINE CULTURE, NO SPECIMEN NUMBER: SENS (test code = 820281326 16875) URINE CULTURE, NO [id number] 00:00:00 Test Item Value Reference Range Interpretation Comments URINE CULTURE, NO SPECIMEN NUMBER: SENS (test code = [id number] 61305) URINE CULTURE, NO [id number] 00:00:00 Test Item Value Reference Range Interpretation Comments URINE CULTURE, NO SPECIMEN NUMBER: SENS (test code = [id number] 04339) URINE CULTURE, NO [id number] 00:00:00 Test Item Value Reference Range Interpretation Comments URINE CULTURE, NO SPECIMEN NUMBER: SENS (test code = 232903558 05597) URINE CULTURE, NO [id number] 00:00:00 Test Item Value Reference Range Interpretation Comments URINE CULTURE, NO SPECIMEN NUMBER: SENS (test code = [id number] 02379) URINE CULTURE, NO [id number] 00:00:00 Test Item Value Reference Range Interpretation Comments URINE CULTURE, NO SPECIMEN NUMBER: SENS (test code = 226608184 30371) URINE CULTURE, NO [id number] 00:00:00 Test Item Value Reference Range Interpretation Comments URINE CULTURE, NO SPECIMEN NUMBER: SENS (test code = [id number] 47155) URINE CULTURE, NO [id number] 00:00:00 Test Item Value Reference Range Interpretation Comments URINE CULTURE, NO SPECIMEN NUMBER: SENS (test code = 777639491 52433) URINE CULTURE, NO [id number] 00:00:00 Test Item Value Reference Range Interpretation Comments URINE CULTURE, NO SPECIMEN NUMBER: SENS (test code = 564380883 71011) URINE CULTURE, NO [id number] 00:00:00 Test Item Value Reference Range Interpretation Comments URINE CULTURE, NO SPECIMEN NUMBER: SENS (test code = 201345795 10025) URINE CULTURE, NO [id number] 00:00:00 Test Item Value Reference Range Interpretation Comments URINE CULTURE, NO SPECIMEN NUMBER: SENS (test code = 660690239 87819) URINE CULTURE, NO [id number] 00:00:00 Test Item Value Reference Range Interpretation Comments URINE CULTURE, NO SPECIMEN NUMBER: SENS (test code = 516480315 94891) CULTURE, [id number] 00:00:00 Test Item Value Reference Range Interpretation Comments CULTURE, URINE (test SPECIMEN NUMBER: code = 10984) [id number] CULTURE, [id number] 00:00:00 Test Item Value Reference Range Interpretation Comments CULTURE, URINE (test SPECIMEN NUMBER: code = 08022) [id number] CULTURE, [id number] 00:00:00 Test Item Value Reference Range Interpretation Comments CULTURE, URINE (test SPECIMEN NUMBER: code = 80168) [id number] CULTURE, [id number] 00:00:00 Test Item Value Reference Range Interpretation Comments CULTURE, URINE (test SPECIMEN NUMBER: code = 19849) [id number] CULTURE, [id number] 00:00:00 Test Item Value Reference Range Interpretation Comments CULTURE, URINE (test SPECIMEN NUMBER: code = 94424) [id number] CULTURE, [id number] 00:00:00 Test Item Value Reference Range Interpretation Comments CULTURE, URINE (test SPECIMEN NUMBER: code = 25238) [id number] CULTURE, [id number] 00:00:00 Test Item Value Reference Range Interpretation Comments CULTURE, URINE (test SPECIMEN NUMBER: code = 92226) [id number] CULTURE, [id number] 00:00:00 Test Item Value Reference Range Interpretation Comments CULTURE, URINE (test SPECIMEN NUMBER: code = 07147) [id number] CULTURE, [id number] 00:00:00 Test Item Value Reference Range Interpretation Comments CULTURE, URINE (test SPECIMEN NUMBER: code = 88756) [id number] CULTURE, [id number] 00:00:00 Test Item Value Reference Range Interpretation Comments CULTURE, URINE (test SPECIMEN NUMBER: code = 94213) [id number] CULTURE, [id number] 00:00:00 Test Item Value Reference Range Interpretation Comments CULTURE, URINE (test SPECIMEN NUMBER: code = 21904) [id number] CULTURE, [id number] 00:00:00 Test Item Value Reference Range Interpretation Comments CULTURE, URINE (test SPECIMEN NUMBER: code = 09351) [id number] SARS-CoV-2 (COVID-19) by RT-PCR (HIGH RISK)2020-07-08 00:00:00 Test Item Value Reference Range Interpretation Comments SARS-CoV-2 INTERPRETATION Negative (test code = 26850) SOURCE (test code = 10974) Nasal_Swab_in_VTM__ UTM SARS-CoV-2 (COVID-19) by RT-PCR (HIGH RISK)2020-07-08 00:00:00 Test Item Value Reference Range Interpretation Comments SARS-CoV-2 INTERPRETATION Negative (test code = 15435) SOURCE (test code = 49121) Nasal_Swab_in_VTM__ UTM SARS-CoV-2 (COVID-19) by RT-PCR (HIGH RISK)2020-07-08 00:00:00 Test Item Value Reference Range Interpretation Comments SARS-CoV-2 INTERPRETATION Negative (test code = 61717) SOURCE (test code = 30898) Nasal_Swab_in_VTM__ UTM URINE CULTURE, NO [id number] 00:00:00 Test Item Value Reference Range Interpretation Comments URINE CULTURE, NO SPECIMEN NUMBER: SENS (test code = [id number]) URINE CULTURE, NO [id number] 00:00:00 Test Item Value Reference Range Interpretation Comments URINE CULTURE, NO SPECIMEN NUMBER: SENS (test code = [id number]) URINE CULTURE, NO [id number] 00:00:00 Test Item Value Reference Range Interpretation Comments URINE CULTURE, NO SPECIMEN NUMBER: SENS (test code = [id number]) URINE CULTURE, NO [id number] 00:00:00 Test Item Value Reference Range Interpretation Comments URINE CULTURE, NO SPECIMEN NUMBER: SENS (test code = [id number] 21402) URINE CULTURE, NO [id number] 00:00:00 Test Item Value Reference Range Interpretation Comments URINE CULTURE, NO SPECIMEN NUMBER: SENS (test code = [id number]) URINE CULTURE, NO [id number] 00:00:00 Test Item Value Reference Range Interpretation Comments URINE CULTURE, NO SPECIMEN NUMBER: SENS (test code = [id number]) LIPID [id number] 00:00:00 Test Item Value Reference Range Interpretation Comments CHOLESTEROL (test code = 2210) 156 MG/DL TRIGLYCERIDES (test code = 2232) 86 MG/DL HDL CHOLESTEROL (test code = 2220) 35 MG/DL CALC LDL CHOL (test code = 2237) 103 MG/DL RISK RATIO LDL/HDL (test code = 2.94 RATIO 2238) LIPID [id number] 00:00:00 Test Item Value Reference Range Interpretation Comments CHOLESTEROL (test code = 2210) 156 MG/DL TRIGLYCERIDES (test code = 2232) 86 MG/DL HDL CHOLESTEROL (test code = 2220) 35 MG/DL CALC LDL CHOL (test code = 2237) 103 MG/DL RISK RATIO LDL/HDL (test code = 2.94 RATIO 2238) COMPREHENSIVE METABOLIC [id number] 00:00:00 Test Item Value Reference Range Interpretation Comments GLUCOSE (test code = 2217) 96 MG/DL BUN (test code = 2208) 13 MG/DL CREATININE (test code = 2214) 0.55 MG/DL eGFR AMER. (test code 102 ML/MIN/1.73 = 91182) eGFR NON- AMER. (test 88 ML/MIN/1.73 code = 40795) CALC BUN/CREAT (test code = 24 RATIO 2235) SODIUM (test code = 2231) 138 MEQ/L POTASSIUM (test code = 2228) 4.3 MEQ/L CHLORIDE (test code = 2215) 100 MEQ/L CARBON DIOXIDE (test code = 26 MEQ/L 2205) CALCIUM (test code = 2209) 9.8 MG/DL PROTEIN, TOTAL (test code = 6.9 G/DL 2228) ALBUMIN (test code = 2201) 4.3 G/DL CALC GLOBULIN (test code = 2.6 G/DL 2240) CALC A/G RATIO (test code = 1.7 RATIO 2234) BILIRUBIN, TOTAL (test code = 0.3 MG/DL 2206) ALKALINE PHOSPHATASE (test 86 U/L code = 2204) AST (test code = 2218) 18 U/L ALT (test code = 2219) 12 U/L COMPREHENSIVE METABOLIC [id number] 00:00:00 Test Item Value Reference Range Interpretation Comments GLUCOSE (test code = 2217) 96 MG/DL BUN (test code = 2208) 13 MG/DL CREATININE (test code = 2214) 0.55 MG/DL eGFR AMER. (test code 102 ML/MIN/1.73 = 90509) eGFR NON- AMER. (test 88 ML/MIN/1.73 code = 79754) CALC BUN/CREAT (test code = 24 RATIO 2235) SODIUM (test code = 2231) 138 MEQ/L POTASSIUM (test code = 2228) 4.3 MEQ/L CHLORIDE (test code = 2215) 100 MEQ/L CARBON DIOXIDE (test code = 26 MEQ/L 2205) CALCIUM (test code = 2209) 9.8 MG/DL PROTEIN, TOTAL (test code = 6.9 G/DL 2228) ALBUMIN (test code = 2201) 4.3 G/DL CALC GLOBULIN (test code = 2.6 G/DL 2240) CALC A/G RATIO (test code = 1.7 RATIO 2234) BILIRUBIN, TOTAL (test code = 0.3 MG/DL 2206) ALKALINE PHOSPHATASE (test 86 U/L code = 2204) AST (test code = 2218) 18 U/L ALT (test code = 2219) 12 U/L LIPID [id number] 00:00:00 Test Item Value Reference Range Interpretation Comments CHOLESTEROL (test code = 2210) 156 MG/DL TRIGLYCERIDES (test code = 2232) 86 MG/DL HDL CHOLESTEROL (test code = 2220) 35 MG/DL CALC LDL CHOL (test code = 2237) 103 MG/DL RISK RATIO LDL/HDL (test code = 2.94 RATIO 2238) LIPID [id number] 00:00:00 Test Item Value Reference Range Interpretation Comments CHOLESTEROL (test code = 2210) 156 MG/DL TRIGLYCERIDES (test code = 2232) 86 MG/DL HDL CHOLESTEROL (test code = 2220) 35 MG/DL CALC LDL CHOL (test code = 2237) 103 MG/DL RISK RATIO LDL/HDL (test code = 2.94 RATIO 2238) COMPREHENSIVE METABOLIC [id number] 00:00:00 Test Item Value Reference Range Interpretation Comments GLUCOSE (test code = 2217) 96 MG/DL BUN (test code = 2208) 13 MG/DL CREATININE (test code = 2214) 0.55 MG/DL eGFR AMER. (test code 102 ML/MIN/1.73 = 12244) eGFR NON- AMER. (test 88 ML/MIN/1.73 code = 05003) CALC BUN/CREAT (test code = 24 RATIO 2235) SODIUM (test code = 2231) 138 MEQ/L POTASSIUM (test code = 2228) 4.3 MEQ/L CHLORIDE (test code = 2215) 100 MEQ/L CARBON DIOXIDE (test code = 26 MEQ/L 2206) CALCIUM (test code = 2209) 9.8 MG/DL PROTEIN, TOTAL (test code = 6.9 G/DL 2228) ALBUMIN (test code = 2201) 4.3 G/DL CALC GLOBULIN (test code = 2.6 G/DL 2240) CALC A/G RATIO (test code = 1.7 RATIO 2234) BILIRUBIN, TOTAL (test code = 0.3 MG/DL 2206) ALKALINE PHOSPHATASE (test 86 U/L code = 2204) AST (test code = 2218) 18 U/L ALT (test code = 2219) 12 U/L COMPREHENSIVE METABOLIC [id number] 00:00:00 Test Item Value Reference Range Interpretation Comments GLUCOSE (test code = 2217) 96 MG/DL BUN (test code = 2208) 13 MG/DL CREATININE (test code = 2214) 0.55 MG/DL eGFR AMER. (test code 102 ML/MIN/1.73 = 03425) eGFR NON- AMER. (test 88 ML/MIN/1.73 code = 57105) CALC BUN/CREAT (test code = 24 RATIO 2235) SODIUM (test code = 2231) 138 MEQ/L POTASSIUM (test code = 2228) 4.3 MEQ/L CHLORIDE (test code = 2215) 100 MEQ/L CARBON DIOXIDE (test code = 26 MEQ/L 2205) CALCIUM (test code = 2209) 9.8 MG/DL PROTEIN, TOTAL (test code = 6.9 G/DL 222) ALBUMIN (test code = 2201) 4.3 G/DL CALC GLOBULIN (test code = 2.6 G/DL 2240) CALC A/G RATIO (test code = 1.7 RATIO 2234) BILIRUBIN, TOTAL (test code = 0.3 MG/DL 2206) ALKALINE PHOSPHATASE (test 86 U/L code = 2204) AST (test code = 2218) 18 U/L ALT (test code = 2219) 12 U/L LIPID [id number] 00:00:00 Test Item Value Reference Range Interpretation Comments CHOLESTEROL (test code = 2210) 156 MG/DL TRIGLYCERIDES (test code = 2232) 86 MG/DL HDL CHOLESTEROL (test code = 2220) 35 MG/DL CALC LDL CHOL (test code = 2237) 103 MG/DL RISK RATIO LDL/HDL (test code = 2.94 RATIO 2238) LIPID [id number] 00:00:00 Test Item Value Reference Range Interpretation Comments CHOLESTEROL (test code = 2210) 156 MG/DL TRIGLYCERIDES (test code = 2232) 86 MG/DL HDL CHOLESTEROL (test code = 2220) 35 MG/DL CALC LDL CHOL (test code = 2237) 103 MG/DL RISK RATIO LDL/HDL (test code = 2.94 RATIO 2238) COMPREHENSIVE METABOLIC [id number] 00:00:00 Test Item Value Reference Range Interpretation Comments GLUCOSE (test code = 2217) 96 MG/DL BUN (test code = 2208) 13 MG/DL CREATININE (test code = 2214) 0.55 MG/DL eGFR AMER. (test code 102 ML/MIN/1.73 = 45724) eGFR NON- AMER. (test 88 ML/MIN/1.73 code = 81315) CALC BUN/CREAT (test code = 24 RATIO 2235) SODIUM (test code = 2231) 138 MEQ/L POTASSIUM (test code = 2228) 4.3 MEQ/L CHLORIDE (test code = 2215) 100 MEQ/L CARBON DIOXIDE (test code = 26 MEQ/L 220) CALCIUM (test code = 2209) 9.8 MG/DL PROTEIN, TOTAL (test code = 6.9 G/DL 2228) ALBUMIN (test code = 2201) 4.3 G/DL CALC GLOBULIN (test code = 2.6 G/DL 2240) CALC A/G RATIO (test code = 1.7 RATIO 2234) BILIRUBIN, TOTAL (test code = 0.3 MG/DL 2206) ALKALINE PHOSPHATASE (test 86 U/L code = 2204) AST (test code = 2218) 18 U/L ALT (test code = 2219) 12 U/L COMPREHENSIVE METABOLIC [id number] 00:00:00 Test Item Value Reference Range Interpretation Comments GLUCOSE (test code = 2217) 96 MG/DL BUN (test code = 2208) 13 MG/DL CREATININE (test code = 2214) 0.55 MG/DL eGFR AMER. (test code 102 ML/MIN/1.73 = 21731) eGFR NON- AMER. (test 88 ML/MIN/1.73 code = 96242) CALC BUN/CREAT (test code = 24 RATIO 2235) SODIUM (test code = 2231) 138 MEQ/L POTASSIUM (test code = 2228) 4.3 MEQ/L CHLORIDE (test code = 2215) 100 MEQ/L CARBON DIOXIDE (test code = 26 MEQ/L 2206) CALCIUM (test code = 2209) 9.8 MG/DL PROTEIN, TOTAL (test code = 6.9 G/DL 2228) ALBUMIN (test code = 2201) 4.3 G/DL CALC GLOBULIN (test code = 2.6 G/DL 2240) CALC A/G RATIO (test code = 1.7 RATIO 2234) BILIRUBIN, TOTAL (test code = 0.3 MG/DL 2206) ALKALINE PHOSPHATASE (test 86 U/L code = 2204) AST (test code = 2218) 18 U/L ALT (test code = 2219) 12 U/L LIPID [id number] 00:00:00 Test Item Value Reference Range Interpretation Comments CHOLESTEROL (test code = 2210) 144 MG/DL TRIGLYCERIDES (test code = 2232) 86 MG/DL HDL CHOLESTEROL (test code = 2220) 35 MG/DL CALC LDL CHOL (test code = 2237) 92 MG/DL RISK RATIO LDL/HDL (test code = 2.62 RATIO 2238) LIPID [id number] 00:00:00 Test Item Value Reference Range Interpretation Comments CHOLESTEROL (test code = 2210) 144 MG/DL TRIGLYCERIDES (test code = 2232) 86 MG/DL HDL CHOLESTEROL (test code = 2220) 35 MG/DL CALC LDL CHOL (test code = 2237) 92 MG/DL RISK RATIO LDL/HDL (test code = 2.62 RATIO 2238) LIVER (HEPATIC) FUNCTION [id number] 00:00:00 Test Item Value Reference Range Interpretation Comments PROTEIN, TOTAL (test code = 2229) 6.9 G/DL ALBUMIN (test code = 2201) 4.3 G/DL BILIRUBIN, TOTAL (test code = 2207) 0.4 MG/DL BILIRUBIN, DIRECT (test code = 0.1 MG/DL 2021) ALKALINE PHOSPHATASE (test code = 96 U/L 2203) AST (test code = 2218) 17 U/L ALT (test code = 2219) 10 U/L LIVER (HEPATIC) FUNCTION [id number] 00:00:00 Test Item Value Reference Range Interpretation Comments PROTEIN, TOTAL (test code = 2229) 6.9 G/DL ALBUMIN (test code = 2201) 4.3 G/DL BILIRUBIN, TOTAL (test code = 2207) 0.4 MG/DL BILIRUBIN, DIRECT (test code = 0.1 MG/DL 2021) ALKALINE PHOSPHATASE (test code = 96 U/L 2203) AST (test code = 2218) 17 U/L ALT (test code = 2219) 10 U/L BASIC METABOLIC [id number] 00:00:00 Test Item Value Reference Range Interpretation Comments GLUCOSE (test code = 2217) 96 MG/DL BUN (test code = 2208) 11 MG/DL CREATININE (test code = 2214) 0.64 MG/DL eGFR AMER. (test code 98 ML/MIN/1.73 = 48673) eGFR NON- AMER. (test 84 ML/MIN/1.73 code = 83517) SODIUM (test code = 2231) 140 MEQ/L POTASSIUM (test code = 2228) 4.1 MEQ/L CHLORIDE (test code = 2215) 99 MEQ/L CARBON DIOXIDE (test code = 27 MEQ/L 2206) CALCIUM (test code = 2209) 9.5 MG/DL BASIC METABOLIC [id number] 00:00:00 Test Item Value Reference Range Interpretation Comments GLUCOSE (test code = 2217) 96 MG/DL BUN (test code = 2208) 11 MG/DL CREATININE (test code = 2214) 0.64 MG/DL eGFR AMER. (test code 98 ML/MIN/1.73 = 99115) eGFR NON- AMER. (test 84 ML/MIN/1.73 code = 27485) SODIUM (test code = 2231) 140 MEQ/L POTASSIUM (test code = 2228) 4.1 MEQ/L CHLORIDE (test code = 2215) 99 MEQ/L CARBON DIOXIDE (test code = 27 MEQ/L 2206) CALCIUM (test code = 2209) 9.5 MG/DL LIPID [id number] 00:00:00 Test Item Value Reference Range Interpretation Comments CHOLESTEROL (test code = 2210) 144 MG/DL TRIGLYCERIDES (test code = 2232) 86 MG/DL HDL CHOLESTEROL (test code = 2220) 35 MG/DL CALC LDL CHOL (test code = 2237) 92 MG/DL RISK RATIO LDL/HDL (test code = 2.62 RATIO 2238) LIPID [id number] 00:00:00 Test Item Value Reference Range Interpretation Comments CHOLESTEROL (test code = 2210) 144 MG/DL TRIGLYCERIDES (test code = 2232) 86 MG/DL HDL CHOLESTEROL (test code = 2220) 35 MG/DL CALC LDL CHOL (test code = 2237) 92 MG/DL RISK RATIO LDL/HDL (test code = 2.62 RATIO 2238) LIVER (HEPATIC) FUNCTION [id number] 00:00:00 Test Item Value Reference Range Interpretation Comments PROTEIN, TOTAL (test code = 2229) 6.9 G/DL ALBUMIN (test code = 2201) 4.3 G/DL BILIRUBIN, TOTAL (test code = 2207) 0.4 MG/DL BILIRUBIN, DIRECT (test code = 0.1 MG/DL 2021) ALKALINE PHOSPHATASE (test code = 96 U/L 2203) AST (test code = 2218) 17 U/L ALT (test code = 2219) 10 U/L LIVER (HEPATIC) FUNCTION [id number] 00:00:00 Test Item Value Reference Range Interpretation Comments PROTEIN, TOTAL (test code = 2229) 6.9 G/DL ALBUMIN (test code = 2201) 4.3 G/DL BILIRUBIN, TOTAL (test code = 2207) 0.4 MG/DL BILIRUBIN, DIRECT (test code = 0.1 MG/DL 2021) ALKALINE PHOSPHATASE (test code = 96 U/L 2203) AST (test code = 2218) 17 U/L ALT (test code = 2219) 10 U/L BASIC METABOLIC [id number] 00:00:00 Test Item Value Reference Range Interpretation Comments GLUCOSE (test code = 2217) 96 MG/DL BUN (test code = 2208) 11 MG/DL CREATININE (test code = 2214) 0.64 MG/DL eGFR AMER. (test code 98 ML/MIN/1.73 = 99882) eGFR NON- AMER. (test 84 ML/MIN/1.73 code = 69743) SODIUM (test code = 2231) 140 MEQ/L POTASSIUM (test code = 2228) 4.1 MEQ/L CHLORIDE (test code = 2215) 99 MEQ/L CARBON DIOXIDE (test code = 27 MEQ/L 2205) CALCIUM (test code = 2209) 9.5 MG/DL BASIC METABOLIC [id number] 00:00:00 Test Item Value Reference Range Interpretation Comments GLUCOSE (test code = 2217) 96 MG/DL BUN (test code = 2208) 11 MG/DL CREATININE (test code = 2214) 0.64 MG/DL eGFR AMER. (test code 98 ML/MIN/1.73 = 82925) eGFR NON- AMER. (test 84 ML/MIN/1.73 code = 21510) SODIUM (test code = 2231) 140 MEQ/L POTASSIUM (test code = 2228) 4.1 MEQ/L CHLORIDE (test code = 2215) 99 MEQ/L CARBON DIOXIDE (test code = 27 MEQ/L 2205) CALCIUM (test code = 2209) 9.5 MG/DL LIPID [id number] 00:00:00 Test Item Value Reference Range Interpretation Comments CHOLESTEROL (test code = 2210) 144 MG/DL TRIGLYCERIDES (test code = 2232) 86 MG/DL HDL CHOLESTEROL (test code = 2220) 35 MG/DL CALC LDL CHOL (test code = 2237) 92 MG/DL RISK RATIO LDL/HDL (test code = 2.62 RATIO 2238) LIPID [id number] 00:00:00 Test Item Value Reference Range Interpretation Comments CHOLESTEROL (test code = 2210) 144 MG/DL TRIGLYCERIDES (test code = 2232) 86 MG/DL HDL CHOLESTEROL (test code = 2220) 35 MG/DL CALC LDL CHOL (test code = 2237) 92 MG/DL RISK RATIO LDL/HDL (test code = 2.62 RATIO 2238) LIVER (HEPATIC) FUNCTION [id number] 00:00:00 Test Item Value Reference Range Interpretation Comments PROTEIN, TOTAL (test code = 2229) 6.9 G/DL ALBUMIN (test code = 2201) 4.3 G/DL BILIRUBIN, TOTAL (test code = 2207) 0.4 MG/DL BILIRUBIN, DIRECT (test code = 0.1 MG/DL 2021) ALKALINE PHOSPHATASE (test code = 96 U/L 2203) AST (test code = 2218) 17 U/L ALT (test code = 2219) 10 U/L LIVER (HEPATIC) FUNCTION [id number] 00:00:00 Test Item Value Reference Range Interpretation Comments PROTEIN, TOTAL (test code = 2229) 6.9 G/DL ALBUMIN (test code = 2201) 4.3 G/DL BILIRUBIN, TOTAL (test code = 2207) 0.4 MG/DL BILIRUBIN, DIRECT (test code = 0.1 MG/DL 2021) ALKALINE PHOSPHATASE (test code = 96 U/L 2203) AST (test code = 2218) 17 U/L ALT (test code = 2219) 10 U/L BASIC METABOLIC [id number] 00:00:00 Test Item Value Reference Range Interpretation Comments GLUCOSE (test code = 2217) 96 MG/DL BUN (test code = 2208) 11 MG/DL CREATININE (test code = 2214) 0.64 MG/DL eGFR AMER. (test code 98 ML/MIN/1.73 = 51943) eGFR NON- AMER. (test 84 ML/MIN/1.73 code = 80359) SODIUM (test code = 2231) 140 MEQ/L POTASSIUM (test code = 2228) 4.1 MEQ/L CHLORIDE (test code = 2215) 99 MEQ/L CARBON DIOXIDE (test code = 27 MEQ/L 2206) CALCIUM (test code = 2209) 9.5 MG/DL BASIC METABOLIC [id number] 00:00:00 Test Item Value Reference Range Interpretation Comments GLUCOSE (test code = 2217) 96 MG/DL BUN (test code = 2208) 11 MG/DL CREATININE (test code = 2214) 0.64 MG/DL eGFR AMER. (test code 98 ML/MIN/1.73 = 59365) eGFR NON- AMER. (test 84 ML/MIN/1.73 code = 13755) SODIUM (test code = 2231) 140 MEQ/L POTASSIUM (test code = 2228) 4.1 MEQ/L CHLORIDE (test code = 2215) 99 MEQ/L CARBON DIOXIDE (test code = 27 MEQ/L 2206) CALCIUM (test code = 2209) 9.5 MG/DL"
[2023-04-11 10:22] LABS: Absolute Lymphocytes (CBC) 1.2 K/uL (0.7-4.9); Hematocrit 41.8 % (36.0-45.0); MCV 94.7 fL (80-100); MPV 6.9 fL (7.6-11.3); Platelets 290 thou/uL (152-406); RBC Red Blood Cell Count 4.42 M/uL (3.86-4.86)
[2023-04-11 10:38] LABS: Albumin 3.5 g/dL (3.4-5.0); Bilirubin Total 0.7 mg/dL (0.2-1.0); Potassium 3.8 mEq/L (3.5-5.1)
[2023-04-11 10:51] LABS: Specific Gravity 1.005 (1.005-1.030); Urine Bacteria <20 /HPF (<20); Urine Bilirubin NEGATIVE (Negative); Urine Blood 1+ (Negative); Urine Clarity Clear (Clear); Urine Color Colorless (Yellow); Urine Glucose NEGATIVE (Negative); Urine Protein NEGATIVE (Negative); Urine RBC <5 /HPF (None Seen); Urine Urobilinogen Normal (Normal); Urine pH 6.5 (5.0-7.0)
[2023-04-11] MEDS ORDERED: MIDAZOLAM HCL 2 MG/2 ML INJ ONE ×2 (11:40→14:34)
--- NOTE | 2023-04-11 11:43 | RAD REPORT ---
EXAM DESCRIPTION: CTAbdomen Pelvis W Contrast - 04/11/2023 10:48 am CLINICAL HISTORY: Abdominal pain. ABD PAIN COMPARISON: Abdomen Pelvis W Contrast dated 09/15/2020 TECHNIQUE: Biphasic CT imaging of the abdomen and pelvis was performed with 100 ml non-ionic IV cont rast. All CT scans are performed using dose optimization technique as appropriate and may include automated exposure control or mA/KV adjustment according to patient size. FINDINGS: The lung bases are clear. The liver, spleen, pancreas, adrenal glands and kidneys are within normal limits. Small benign liver cysts noted. Moderate aortoiliac atherosclerosis. No bowel obstruction, free air, free fluid or abscess. Prominent stool is noted throughout the colon. Small right inguinal fat and fluid containing hernia seen. Pessary device is present. No evidence o f significant lymphadenopathy. Moderate lumbar degenerative changes. Moderate compression deformity T11 vertebral body, chronic. IMPRESSION: Small right inguinal fat and fluid containing hernia is present. No bowel involvement is evident.
[2023-04-11] MEDS ORDERED: FENTANYL CITR 100 MCG/2 ML ONE ×2 (12:12→14:33)
[2023-04-11] MEDS ORDERED: ONDANSETRON 4 MG/2 ML VIAL IV PRN (12:55)
[2023-04-11] MEDS ORDERED: ACETAMINOPHEN 650MG/RECT SUPP PR PRN (12:55)
--- NOTE | 2023-04-11 12:55 | P.HP ---
Certification for Inpatient Patient admitted to: Observation With expected LOS: <2 Midnights Practitioner: I am a practitioner with admitting privileges, knowledge of patient current condition, hospital course, and medical plan of care. Services: Services provided to patient in accordance with Admission requirements found in Title 42 Section 412.3 of the Code of Federal Regulations Patient History Date of Service: 04/11/23 Reason for admission: Incarcerated hernia History of Present Illness: 82 y o female pt with hx of HLD, HTN, who presented to the ED with c/o groin pain on the left. she noted a lump on the left groin afetr she attemted to get into her bed a few days back. the lumpr got bigger and more painful so she decided to come to the ED for evaluation. No issues with trauma to the affected area. she denies any n/v, diarrhea. CT abd/pelvis done in the ED revealed an incarcerated hernai which was not reducible by surgeon at bedside. she was asked to be admitted for OR reduction of hernia. Allergies codeine Allergy (Verified 09/06/20 15:58) Nausea/Vomiting Home Medications: Ascorbic Acid [Vitamin C] 1 tab PO DAILY 09/06/20 Aspirin 81 mg PO DAILY 09/06/20 Calcium Carbonate [Calcium] 1 tab PO DAILY 09/06/20 Cetirizine HCl [Zyrtec*] 5 mg PO DAILY 09/06/20 Cholecalciferol (Vitamin D3) [Vitamin D3] 1 cap PO DAILY 09/06/20 Docosahexanoic AC/Epa [Fish Oil 1,000 MG*] 1 cap PO DAILY 09/06/20 Estradiol [Estrace] 0.5 gm TOP SEECOM 09/06/20 Ezetimibe 10 mg PO DAILY 09/06/20 Lactulose 10 gm PO PRN PRN 09/06/20 Multivit-Min/FA/Lycopen/Lutein [Centrum Silver Tablet] 1 tab PO DAILY 09/06/20 Multivitamin/Iron/Folic Acid [Centrum Women Tablet] 1 tab PO DAILY 09/06/20 Omeprazole 20 mg PO DAILY 09/06/20 Ubidecarenone [Co Q-10] 200 mg PO DAILY 09/06/20 Nitrofuran Macro [Macrobid] 100 mg PO DAILY 5 Days #10 cap 09/13/20 - Past Medical/Surgical History Diabetic: No -: HTN -: appendectomy -: hysterectomy - Family History Father -: Heart disease, Hypertension Mother Notes: alzheimers - Social History Alcohol use: No CD- Drugs: No Caffeine use: Yes Review of Systems General: Unremarkable Eyes: Unremarkable ENT: Unremarkable Respiratory: Unremarkable Cardiovascular: Unremarkable Gastrointestinal: Abdominal Pain Genitourinary: Unremarkable Musculoskeletal: Unremarkable Integumentary: Unremarkable Neurological: Unremarkable Physical Examination - Physical Exam General: Alert, Oriented x3 HEENT: Atraumatic, Normocephalic Neck: Supple Respiratory: Normal air movement Cardiovascular: Regular rate/rhythm, Normal S1 S2 Neurological: Normal speech, Normal strength at 5/5 x4 extr - Studies Laboratory Data (last 24 hrs) 04/11/23 04/11/23 10:10 10:10 WBC 8.50 Hgb 14.6 Hct 41.8 Plt Count 290 Sodium 133 L Potassium 3.8 BUN 13 Creatinine 0.69 Glucose 113 H Total Bilirubin 0.7 AST 13 L ALT 17 Alkaline Phosphatase 100 Lipase 20 Assessment and Plan - Plan Incarcerated hernia: Discovered on CT abd/pelvis. no evidence of bowel obstruction. Surgeon following for reduction/intervention. NPO for now. Pain control with IV morphine prn. Hyponatremia: Mildly low at 133 today. we will continue NS infusion and follow daily labs. Hypertension: we will monitor vitals per unit protocol and continue antihypertensive medications. Prophylaxis: Lovenox for DVT. Code status: Full code. Disposition: For reduction/repair of hernia and dc home thereafter. - Advance Directives Does patient have a Living Will: No Does patient have a Durable POA for Healthcare: No
--- NOTE | 2023-04-11 12:56 | EDPHYS ---
Physician Documentation [facility] Name: Erendira Morgan Age: 82 yrs Sex: Female : 1940 Arrival Date: 04/11/2023 Time: 09:51 Bed 7 Private MD: Demario Butler R ED Physician Bay Senior HPI: 04/11 10:09 This 82 yrs old Female presents to ER via Ambulatory with complaints of sb4 abdominal pain. 10:09 Onset: The symptoms/episode began/occurred last night. Associated signs and symptoms: sb4 Pertinent negatives: diarrhea, fever, vomiting. Modifying factors: The patient symptoms are alleviated by remaining still, the patient symptoms are aggravated by straining, pressure. The patient has not experienced similar symptoms in the past. The patient has been recently seen by a physician: Dr. Xiao. 10:11 patient states she felt a painful bulge in her RLQ last night and when she strained sb4 this morning trying to have a BM it worsened. she saw Dr. Xiao this morning who sent her to the ED. she denies any fever, nausea, vomiting, chest pain, sob. Historical: - Allergies: 10:08 Codeine; iw - Home Meds: 10:08 Micardis 80 mg Oral tablet daily [Active]; Xarelto 15 mg oral tablet daily [Active]; iw furosemide 20 mg Oral tablet daily [Active]; ezetimibe 10 mg oral tablet daily [Active]; omeprazole 20 mg Oral Tablet,disintegrating,delayed release daily [Active]; carvedilol 6.25 mg oral tablet every 12 hours [Active]; buspirone 10 mg Oral tablet 2 times per day [Active]; gabapentin 300 mg oral capsule 2 times per day [Active]; estradiol 10 mcg vaginal tablet 3 times per week [Active]; lactulose 10 gram/15 mL Oral solution 2 times per day [Active]; - Immunization history:: Client reports receiving the 2nd dose of the Covid vaccine. - Social history:: Smoking status: Patient/guardian denies using tobacco, but has a distant history of tobacco abuse. ROS: 10:11 Constitutional: Negative for fever, chills, and weight loss. sb4 10:11 Abdomen/GI: Positive for abdominal pain, constipation, Negative for nausea and vomiting, diarrhea. 10:11 All other systems are negative. Exam: 10:11 Constitutional: This is a well developed, well nourished patient who is awake, alert, sb4 and in no acute distress. Head/Face: Normocephalic, atraumatic. Eyes: Extra-ocular motions intact. Periorbital areas with no swelling, redness, or edema. ENT: Mucous membranes moist. Cardiovascular: Regular rate and rhythm with a normal S1 and S2. Respiratory: Lungs have equal breath sounds bilaterally, clear to auscultation and percussion. No rales, rhonchi or wheezes noted. No increased work of breathing, no retractions or nasal flaring. Skin: Warm, dry with normal turgor. Normal color with no rashes, no lesions, and no evidence of cellulitis. MS/ Extremity: Pulses equal, no cyanosis. Neurovascular intact. Full, normal range of motion. Neuro: Awake and alert, GCS 15, oriented to person, place, time, and situation. Cranial nerves II-XII grossly intact. Motor strength 5/5 in all extremities. Sensory grossly intact. Cerebellar exam normal. Normal gait. 10:11 Abdomen/GI: Inspection: hernia mid/RLQ, Bowel sounds: diminished, in all quadrants, Palpation: soft, mass, that is tender, involuntary guarding, is elicited in the right lower quadrant. Vital Signs: 10:06 BP 172 / 72; Pulse 70; Resp 16; Temp 98.2; Pulse Ox 96% on R/A; Weight 58.97 kg; Height iw 5 ft. 3 in. ; 11:38 BP 179 / 78; Pulse 71; Resp 16; Pulse Ox 97% on R/A; iw 10:06 Body Mass Index 23.03 (58.97 kg, 160.02 cm) iw Procedures: 13:22 right inguinal hernia reduction attempted by Dr. Senior, Dr. Duque and myself. sb4 Hernia partially reduced. MDM: 09:54 Patient medically screened. sb4 10:14 Differential diagnosis: incarcerated hernia, bowel obstruction, constipation, abdominal sb4 mass. 12:53 Data reviewed: vital signs, nurses notes, lab test result(s), radiologic studies, I sb4 have discussed the patient's presentation/case with the attending Emergency Department Physician; and as a result, I will admit patient. Consideration of Admission/Observation Patient was admitted/placed on observation. Management of patient was discussed with the following: Hospitalist: Dr. Hansen . Multifocal Button Inspector: Dr. Duque. Care significantly affected by the following chronic conditions: Hypertension, Congestive Heart Failure. Counseling: I had a detailed discussion with the patient and/or guardian regarding the historical points, exam findings, and any diagnostic results supporting the discharge/admit diagnosis, the presence of at least one elevated blood pressure reading (>120/80) during this emergency department visit, lab results, radiology results, the need for further work-up and treatment in the hospital. ED course: Dr. Senior, Dr. Duque, and I all tried to reduce the hernia. It was significantly reduced but not fully. Dr. Duque will take patient to OR this afternoon. 04/11 09:59 Order name: CBC with Diff; Complete Time: 10:32 sb4 04/11 09:59 Order name: CMP; Complete Time: 10:39 sb4 04/11 09:59 Order name: Lipase; Complete Time: 10:39 sb4 04/11 09:59 Order name: Lactate w/ 2H reflex if indic.; Complete Time: 10:49 sb4 04/11 10:32 Order name: Urinalysis W/Microscopic; Complete Time: 10:52 sb4 04/11 13:00 Order name: Urinalysis w/ reflexes EDMS 04/11 09:59 Order name: CT Abd/Pelvis - IV Contrast Only; Complete Time: 12:18 sb4 04/11 13:00 Order name: NPO EDMD 04/11 13:16 Order name: EKG; Complete Time: 13:16 sb4 04/11 09:59 Order name: IV Saline Lock; Complete Time: 10:20 sb4 04/11 09:59 Order name: Labs collected and sent; Complete Time: 10:20 sb4 04/11 12:19 Order name: NPO; Complete Time: 12:22 sb4 Administered Medications: 12:00 Drug: fentaNYL (PF) IVP 25 mcg Route: IVP; Site: right forearm; iw 12:20 Follow up: Response: No adverse reaction iw 12:23 Drug: Midazolam IVP or IV 5 mg Route: IVP; Site: right forearm; iw 13:00 Follow up: Response: No adverse reaction iw Disposition: 12:58 Co-signature as Attending Physician, Bay Senior MD I reviewed the patient's care rt provided by Advanced Practice Provider \T\ agree w/ the diagnosis \T\ care plan. I personally saw the pt \T\ performed a substantive portion of the visit, incldng all aspects of the (History/Exam/Medical Decision Making). Patient presents to the ED with a right inguinal hernia. Is large, tender to palpation. Was able to partially reduce most of the hernia. Surgery was consulted for further care.. Disposition Summary: 04/11/23 12:55 Hospitalization Ordered Hospitalization Status: Inpatient Admission sb4 Provider: Srini Hansen sb4 Location: Telemetry/MedSur (Inpatient) sb4 Condition: Fair sb4 Problem: new sb4 Symptoms: are unchanged sb4 Bed/Room Type: Standard sb4 Room Assignment: sb4 Diagnosis - Incarcerated Right Inguinal Hernia sb4 Forms: - Medication Reconciliation Form sb4 - SBAR form sb4 - Leadership Thank You Letter sb4 Signatures: Dispatcher [employer] Edith Smith RN RN Lilo Hannon PA-C PA-C sb4 Bay Senior MD MD rt Corrections: (The following items were deleted from the chart) 10:14 10:11 patient states she felt a painful bulge in her LLQ last night and when she sb4 strained this morning trying to have a BM it worsened. she saw Dr. Xiao this morning who sent her to the ED. she denies any fever, nausea, vomiting, chest pain, sob. sb4
--- NOTE | 2023-04-11 12:56 | ER ---
Nurse's Notes [facility] Name: Erendira Morgan Age: 82 yrs Sex: Female : 1940 Arrival Date: 04/11/2023 Time: 09:51 Bed 7 Private MD: Demario Butler R Diagnosis: Incarcerated Right Inguinal Hernia Presentation: 04/11 10:06 Chief complaint: Patient states: was sent from Dr. Xiao office for incarcerated iw hernia , is supposed to be seen by Dr. Duque. Coronavirus screen: At this time, the client does not indicate any symptoms associated with coronavirus-19. Ebola Screen: Patient negative for fever greater than or equal to 101.5 degrees Fahrenheit, and additional compatible Ebola Virus Disease symptoms Patient denies exposure to infectious person. Patient denies travel to an Ebola-affected area in the 21 days before illness onset. No symptoms or risks identified at this time. Initial Sepsis Screen: Does the patient meet any 2 criteria? No. Patient's initial sepsis screen is negative. Does the patient have a suspected source of infection? No. Patient's initial sepsis screen is negative. Risk Assessment: Do you want to hurt yourself or someone else? Patient reports no desire to harm self or others. Onset of symptoms was April 09, 2023. 10:06 Method Of Arrival: Ambulatory iw 10:06 Acuity: ELIU 3 iw Historical: - Allergies: 10:08 Codeine; iw - Home Meds: 10:08 Micardis 80 mg Oral tablet daily [Active]; Xarelto 15 mg oral tablet daily [Active]; iw furosemide 20 mg Oral tablet daily [Active]; ezetimibe 10 mg oral tablet daily [Active]; omeprazole 20 mg Oral Tablet,disintegrating,delayed release daily [Active]; carvedilol 6.25 mg oral tablet every 12 hours [Active]; buspirone 10 mg Oral tablet 2 times per day [Active]; gabapentin 300 mg oral capsule 2 times per day [Active]; estradiol 10 mcg vaginal tablet 3 times per week [Active]; lactulose 10 gram/15 mL Oral solution 2 times per day [Active]; - Immunization history:: Client reports receiving the 2nd dose of the Covid vaccine. - Social history:: Smoking status: Patient/guardian denies using tobacco, but has a distant history of tobacco abuse. Screenin:17 [facility] ED Fall Risk Assessment (Adult) Altered Elimination No (0 pt). Abuse screen: iw Denies threats or abuse. Denies injuries from another. Nutritional screening: No deficits noted. Tuberculosis screening: No symptoms or risk factors identified. Assessment: 10:17 General: Appears in no apparent distress. Behavior is calm, cooperative. Pain: iw Complains of pain in right inguinal area. Neuro: Level of Consciousness is awake, alert, obeys commands, Oriented to person, place, time, situation, Moves all extremities. Full function. Cardiovascular: Patient's skin is warm and dry. Respiratory: Respiratory effort is even, unlabored, Respiratory pattern is regular, symmetrical. GI: Abdomen is flat, non-distended. Derm: Skin is intact, is healthy with good turgor. Musculoskeletal: Range of motion: intact in all extremities. 11:39 Reassessment: Patient appears in no apparent distress at this time. Patient and/or iw family updated on plan of care and expected duration. Pain level reassessed. Patient is alert, oriented x 3, equal unlabored respirations, skin warm/dry/pink. awaiting Dr. Senior for hernia reduction. Vital Signs: 10:06 BP 172 / 72; Pulse 70; Resp 16; Temp 98.2; Pulse Ox 96% on R/A; Weight 58.97 kg; Height iw 5 ft. 3 in. ; 11:38 BP 179 / 78; Pulse 71; Resp 16; Pulse Ox 97% on R/A; iw 10:06 Body Mass Index 23.03 (58.97 kg, 160.02 cm) ED Course: 09:53 Patient arrived in ED. rg4 09:53 Demario Butler MD is Private Physician. rg4 09:54 Lilo Saravia PA-C is PHCP. sb4 09:54 Bay Senior MD is Attending Physician. sb4 10:06 Edith Kemp, CAMPOS is Primary Nurse. iw 10:08 Triage completed. iw 10:11 Arm band placed on. iw 10:13 Initial lab(s) drawn, by ga, sent to lab. Inserted saline lock: 20 gauge in right aa5 forearm, using aseptic technique. Blood collected. 10:50 CT Abd/Pelvis - IV Contrast Only In Process Unspecified. EDMS 12:55 Srini Hansen MD is Hospitalizing Provider. sb4 Administered Medications: 12:00 Drug: fentaNYL (PF) IVP 25 mcg Route: IVP; Site: right forearm; iw 12:20 Follow up: Response: No adverse reaction iw 12:23 Drug: Midazolam IVP or IV 5 mg Route: IVP; Site: right forearm; iw 13:00 Follow up: Response: No adverse reaction iw Medication: 10:17 VIS not applicable for this client. iw Outcome: 12:55 Decision to Hospitalize by Provider. sb4 13:34 Patient left the ED. iw Signatures: Dispatcher [employer] Edith Smith RN RN Bernadine Dumas, CAMPOS RN [email or web address] Em Mcknight Sophia, PA-C PAFlores sb4
[2023-04-11] MEDS ORDERED: MORPHINE 2 MG/ML SYR IV PRN (12:58)
[2023-04-11] MEDS ORDERED: Ringers Lactate 1,000 ML IV ONE (13:49)
[2023-04-11] MEDS ORDERED: propofoL 200 MG/20 ML VIAL IV ONE (14:32)
[2023-04-11] MEDS ORDERED: ONDANSETRON 4 MG/2 ML VIAL ONE (14:35)
[2023-04-11] MEDS ORDERED: CEFAZOLIN SODIUM 1 GM/VIAL ONE (14:35)
[2023-04-11] MEDS ORDERED: LIDOCAINE 2% MPF 5 ML VIAL ONE (14:35)
[2023-04-11] MEDS ORDERED: GLYCOPYRROLATE 0.2 MG/ML SYR ONE ×2 (14:43)
[2023-04-11] MEDS ORDERED: ROCURONIUM 50 MG/5 ML VIAL IV ONE (14:43)
[2023-04-11] MEDS ORDERED: EPHEDRINE SULF 50 MG/ML VIAL ONE (14:43)
[2023-04-11] MEDS ORDERED: NEOSTIGMINE 1 MG/ML -10 ML VIAL ONE (14:43)
[2023-04-11] MEDS: BUPIVACAINE 0.25% PF 30 ML VIAL ONE ×2 (15:17→16:05)
--- NOTE | 2023-04-11 15:58 | P.OP ---
Preoperative diagnosis: Strangulated RIGHT inguinal hernia Postoperative diagnosis: Strangulated RIGHT inguinal hernia Primary procedure: Open RIGHT inguianal hernia repair with mesh Secondary procedure: partial omentectomy Anesthesia: GETA + Local Estimated blood loss: <5cc Specimen: Hernia sack, infarcted omentum Findings: infarcted omentum Complications: None Implants: Bard Perfix Small plug and patch Transferred to: Recovery Room Condition: Good
[2023-04-11] MEDS ORDERED: TRAMADOL HCL 50 MG TAB PO PRN (16:23)
[2023-04-11 16:39] VITALS: O2SAT 97
[2023-04-11] MEDS: NA CHLORIDE 0.9% 1,000 ML IV SCH ×2 (17:00→17:04)
[2023-04-11 17:41] VITALS: BMI 23.0
[2023-04-11] MEDS ORDERED: Estradiol [Estrace] 42.5 GM Cream.Appl TOP SCH (18:00)
[2023-04-11] MEDS: carvediloL 6.25 MG TAB PO SCH (18:31)
--- NOTE | 2023-04-11 18:46 | OP ---
Date of Procedure: 04/11/2023 Surgeon: Ricki Duque MD, Preoperative Diagnosis: Strangulated right inguinal hernia. Postoperative Diagnosis: Strangulated right inguinal hernia. Procedures Performed: 1.Open right inguinal hernia repair with mesh. 2.Partial omentectomy. Anesthesia: General endotracheal plus local with 0.25% Marcaine. Estimated Blood Loss: Less than 5 cc. Specimens: Hernia sac, infarcted omentum. Findings: An infarcted omentum was appreciated within a right inguinal hernia. Complications: None. Implants: Bard PerFix small plug and patch hernia repair system. Patient was transferred to recover y room in good condition. Procedure In Detail: After informed consent was obtained, patient was brought to the operating room, prepped and draped in the usual sterile fashion. After adequate anesthesia was achieved, I made an inguinal incision down to subcutaneous tissues after appropriately anesthetizing the skin. I dissect ed down through Camper fat, Gloria fascia to expose the external oblique aponeurosis. This was opene d sharply with a 15 blade. I then opened in its entirety using the Metzenbaum scissors towards the d irection of the superficial inguinal ring. At this point, I encircled the obvious hernia sac circumf erentially around down to the deep inguinal ring. The hernia sac was opened and infarcted omentum wa s appreciated at this point. Additional omentum was delivered into the surgical field. Good viable omentum was appreciated. I then ligated this structure using electrocautery. I then returned the om entum to the normal anatomic position in the preperitoneal space. I ligated the hernia sac using trini ctrocautery at this point and grasped the hernia sac. I sewed the hernia sac closed using a 2-0 PDS suture and imbricated it back in the preperitoneal position. I then deployed a small Bard PerFix plu g into the preperitoneal space and unfurled at this point, securing circumferentially around 4 interr upted 2-0 PDS sutures in an interrupted fashion. I then sized the hernia patch appropriately, laid o n the floor of the inguinal canal and secured to the undersurface of the inguinal ligament and the in ternal oblique aponeurosis circumferentially around reconstituting the deep inguinal ring. At this p oint, I irrigated the area copiously and suctioned out until completely dry. No hemostatic measures required. I then closed the external oblique aponeurosis with a running 3-0 Vicryl suture with good approximation of tissues. Camper fat. Gloria fascia was then closed en bloc. At this point, using t he same set 3-0 Vicryl suture in a running fashion, the deep dermal plane was closed in an additional layer of 3-0 Vicryl suture in interrupted fashion. Skin was closed with a 4-0 Monocryl in a running fashion. Dermabond was placed over top. Patient tolerated the procedure well without evidence of c omplication and transferred to PACU in good condition. All counts were correct at the end of the marck e. KAYLYNN/MODL Voice ID: [id number] Report ID: [id number]
[2023-04-11] MEDS: GABAPENTIN 300 MG CAP PO SCH (20:06)
[2023-04-11] MEDS: BUSPIRONE HCL 5 MG TABLET PO SCH (20:06)
[2023-04-12] MEDS: NA CHLORIDE 0.9% 1,000 ML IV SCH (01:34)
[2023-04-12 03:02] LABS: Specific Gravity > 1.030 (1.005-1.030); Urine Bacteria <20 /HPF (<20); Urine Bilirubin NEGATIVE (Negative); Urine Blood Trace (Negative); Urine Clarity Clear (Clear); Urine Color Light-Yellow (Yellow); Urine Glucose NEGATIVE (Negative); Urine Mucus Slight /HPF (None Seen); Urine Protein NEGATIVE (Negative); Urine RBC <5 /HPF (None Seen); Urine Urobilinogen Normal (Normal); Urine pH 6.5 (5.0-7.0)
[2023-04-12 03:54] LABS: Hematocrit 36.7 % (36.0-45.0); MCV 96.3 fL (80-100); MPV 7.7 fL (7.6-11.3); Platelets 236 thou/uL (152-406); RBC Red Blood Cell Count 3.81 M/uL (3.86-4.86)
[2023-04-12 04:08] LABS: Potassium 3.4 mEq/L (3.5-5.1)
[2023-04-12] MEDS ORDERED: PANTOPRAZOLE 40MG TABLET PO SCH (06:30)
[2023-04-12 08:25] VITALS: BP 119/58; TEMP 98.1
[2023-04-12] MEDS: GABAPENTIN 300 MG CAP PO SCH (08:48)
[2023-04-12] MEDS: BUSPIRONE HCL 5 MG TABLET PO SCH (08:49)
[2023-04-12] MEDS: carvediloL 6.25 MG TAB PO SCH (08:49)
[2023-04-12] MEDS ORDERED: VALSARTAN 160 MG TAB PO SCH (09:00)
[2023-04-12] MEDS ORDERED: EZETIMIBE 10 MG TAB PO SCH (09:00)
[2023-04-12] MEDS ORDERED: RIVAROXABAN 15 MG TABLET PO SCH (09:00)
[2023-04-12] MEDS ORDERED: ENOXAPARIN 40 MG/0.4 ML SQ SCH (09:00)
--- NOTE | 2023-04-12 11:01 | P.DS ---
Admission Date: 04/11/23 Discharge Date: 04/12/23 Disposition: ROUTINE DISCHARGE Discharge Condition: GOOD Reason for Admission: Incarcerated hernia Brief History of Present Illness: 82 y o female pt with hx of HLD, HTN, who presented to the ED with c/o groin pain on the left. she noted a lump on the left groin afetr she attemted to get into her bed a few days back. the lumpr got bigger and more painful so she decided to come to the ED for evaluation. No issues with trauma to the affected area. she denies any n/v, diarrhea. CT abd/pelvis done in the ED revealed an incarcerated hernai which was not reducible by surgeon at bedside. she was asked to be admitted for OR reduction of hernia. Hospital Course: She had operative repair of incarcerated hernia and had a good outcome. she also had partial omentectomy. She was deemed stable for DC home today after surgeon reviewed pt to continue with pain control. she will follow up as recommended with surgeon. Vital Signs/Physical Exam: Temp Pulse Resp BP Pulse Ox 98.1 F 64 14 119/58 L 91 04/12/23 08:00 04/12/23 08:49 04/12/23 08:00 04/12/23 08:49 04/12/23 08:00 General: Alert, Oriented x3 HEENT: Atraumatic, Normocephalic Neck: Supple Respiratory: Normal air movement Cardiovascular: Regular rate/rhythm, Normal S1 S2 Gastrointestinal: Soft and benign Musculoskeletal: No swelling Neurological: Normal speech, Normal strength at 5/5 x4 extr Laboratory Data at Discharge: WBC 8.60 thou/uL (4.3-10.9) 04/12/23 03:00 Hgb 12.7 g/dL (12.0-15.0) D 04/12/23 03:00 Hct 36.7 % (36.0-45.0) 04/12/23 03:00 Plt Count 236 thou/uL (152-406) 04/12/23 03:00 Sodium 134 mEq/L (136-145) L 04/12/23 03:00 Potassium 3.4 mEq/L (3.5-5.1) L 04/12/23 03:00 BUN 10 mg/dL (7-18) 04/12/23 03:00 Creatinine 0.50 mg/dL (0.55-1.02) L 04/12/23 03:00 Glucose 99 mg/dL (74-106) 04/12/23 03:00 Total Bilirubin 0.7 mg/dL (0.2-1.0) 04/11/23 10:10 AST 13 U/L (15-37) L 04/11/23 10:10 ALT 17 U/L (13-56) 04/11/23 10:10 Alkaline Phosphatase 100 U/L (45-117) 04/11/23 10:10 Lipase 20 U/L (13-75) 04/11/23 10:10 Home Medications: Estradiol [Estrace] 10 mcg TOP SEECOM 09/06/20 Ezetimibe 10 mg PO DAILY 09/06/20 Lactulose 10 gm PO BID 09/06/20 Omeprazole 20 mg PO DAILY 09/06/20 Buspirone HCl [Buspar] 10 mg PO BID 04/11/23 Furosemide 20 mg PO DAILY 04/11/23 Gabapentin 300 mg PO BID 04/11/23 Rivaroxaban [Xarelto*] 15 mg PO DAILY 04/11/23 Telmisartan 80 mg PO DAILY 04/11/23 carvediloL [Carvedilol] 6.25 mg PO BID 04/11/23 traMADol HCL [Ultram*] 50 mg PO Q6H PRN #15 tab 04/12/23 New Medications: traMADol HCL [Ultram*] 50 mg PO Q6H PRN #15 tab PRN Reason: Pain Scale 5-7 (Moderate) Diet: AHA Activity: Ad lakia Followup: Dick Butler MD [Primary Care Provider] - Ricki Duque MD [ACTIVE - CAN ADMIT] -
--- NOTE | 2023-04-13 15:09 | EKG ---
Test Date: 2023-04-11 Test Time: 13:25:22 Mica Inspector: MICAHELA MEASUREMENT RESULTS: Intervals: Rate: 72 MO: 142 QRSD: 88 QT: 396 QTc: 433 [place]: P: 75 MO: 142 QRS: 66 T: 81 INTERPRETIVE STATEMENTS: Normal sinus rhythm Cannot rule out Anterior infarct, age undetermined Abnormal ECG Compared to ECG 09/15/2020 09:15:28 Myocardial infarct finding now present Electronically Signed On 04-13-23 15:06:46 CDT by Jan Crow
== END 2023-04-12 13:14 | disposition home or self-care (01) | DRG 351 ==
LOC: ER 09:51 → ERHOLD 12:55 → 2ND 16:26
PROVIDERS: ADMIT Internal Medicine Nephrology; ATTEND Internal Medicine Nephrology
PROC: 0DBU0ZZ Excision of Omentum, Open Approach (ICD-10-PCS; 2023-04-11)
PROC: 0YU50JZ Supplement Right Inguinal Region with Synthetic Substitute, Open Approach (ICD-10-PCS; principal; 2023-04-11 16:45)
DX: K40.30 Unilateral inguinal hernia, with obstruction, without gangrene, not specified as recurrent (principal); E87.1 Hypo-osmolality and hyponatremia; I10 Essential (primary) hypertension; I25.10 Atherosclerotic heart disease of native coronary artery without angina pectoris; K21.9 Gastro-esophageal reflux disease without esophagitis; E78.5 Hyperlipidemia, unspecified; G62.9 Polyneuropathy, unspecified; F41.9 Anxiety disorder, unspecified; Z79.01 Long term (current) use of anticoagulants; Z79.899 Other long term (current) drug therapy; Z88.5 Allergy status to narcotic agent; Z87.891 Personal history of nicotine dependence; Z82.49 Family history of ischemic heart disease and other diseases of the circulatory system; Z82.0 Family history of epilepsy and other diseases of the nervous system
CPT/HCPCS: 36415; 74177; 80048; 80053; 81001; 83605; 83690; 85025; 85027; 87086; 87088; 88302; 93005; 96374; 96375; 99284; J0690; J2001; J2250; J2405; J2704; J2710; J3010; J7030; J7120; Q9967